=== PATIENT | female | born 1990 | race Two or more races ===

== ENCOUNTER → 2024-03-23 13:35 | Outpatient (BNVA) | payer OTHER, SELFPAY | PROVIDERS: Visit Provider Physician Assistant Medical | DX: Z13.89 Encounter for screening for other disorder (principal) | CPT/HCPCS: 73564; 99202 ==

== ENCOUNTER → 2024-03-26 11:56 | Outpatient (BNVA) | payer OTHER, SELFPAY | PROVIDERS: Visit Provider Physician Assistant Medical | DX: Z13.89 Encounter for screening for other disorder (principal) | CPT/HCPCS: 99213 ==

== ENCOUNTER → 2024-03-30 08:53 | Outpatient (BNVA) | payer OTHER, SELFPAY | PROVIDERS: Visit Provider Physician Assistant Medical | DX: Z13.89 Encounter for screening for other disorder (principal) | CPT/HCPCS: 99213 ==

== ENCOUNTER → 2024-04-06 08:54 | Outpatient (BNVA) | payer OTHER, SELFPAY | PROVIDERS: Visit Provider Physician Assistant Medical | DX: Z13.89 Encounter for screening for other disorder (principal) | CPT/HCPCS: 99213 ==

== ENCOUNTER → 2024-04-20 08:52 | Outpatient (BNVA) | payer OTHER, SELFPAY | PROVIDERS: PCP Internal Medicine; Visit Provider Physician Assistant Medical | DX: Z13.89 Encounter for screening for other disorder (principal) | CPT/HCPCS: 99213 ==

== ENCOUNTER 2024-04-23 07:08 | Outpatient (RCR) | payer OTHER, SELFPAY ==
--- NOTE | 2024-04-13 09:01 | MHC.PT.EP ---
[facility] [place] Office [place] Office [place] Office [address] [phone] F: [phone] F: [phone] F: [phone] F: [phone] Physical Therapy Plan of Care Date of Evaluation: 04/13/24 Date of Surgery: Diagnosis: LEFT KNEE CONTUSION/SPRAIN; LEFT LE PAIN Assessment: 33 YO FEMALE REF TO PT W DX Lt KNEE CONTUSION/ SPRAIN S/P FALL 03/23/24. 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 THE Pt HAS A H/O Lt LE NERVE INJURY AND SCOLIOSIS. OBJECTIVE FINDINGS: DECR INFRA AND LAT Lt PATELLAR MOB, (-) DRAWER Lt; PAIN W PALP Lt TIBIAL TUBEROSITY AND INFRAPATELLAR AREA, RESOLVING Lt INFRAPATELLAR ABRASION, POSTURAL DEVIATIONS W GENU VALGUS AND SCOLIOSIS CREATING A LLI, STRENGTH DEFICITS IN CORE / Lt LE, AND FLUCTUAUTING PAIN IN HER Lt PF/ TIB TUB REGION. SHE HAS DECR DENIZ TO STANDING, ASCENDING STAIRS, KNEELING, AND PROLONGED SITTING. SHE IS A GOOD PT CANDIDATE TO ADDRESS THE ABOVE FINDINGS AND ASSIST HER IN RESUMING REG ADLs. Frequency and Duration: The patient will be seen 2 x WK x 4 WKS Short Term Goals: INITIATE HEP DECR Lt KNEE PAIN TO 2-3/10 Pt PERF WFL FUNCTIONAL SQUAT WFL AROM Lt KNEE/ LE Paraprofessional Interpreter Goals: Pt INDEP W HEP AND SELF SX MGMT TECHN Pt RESUME REG ADLs AND EXERCISE EVIDENT W IMPROVED LEFI (63/80) Pt IMPROVE Lt LE STRENGTH BY 1 GRADE; EFFICIENT CORE ENGAGEMENT W SIMUL ADLs Treatment Plan: Modalities to reduce pain, spasms and effusion. Manual therapy to restore motion and function. Therapeutic exercise to improve strength and flexibility. Neuromuscular re-education for posture and balance. Therapeutic activities to return to functional activities of daily living. Electronically signed by: CANDY SANTOS,PT Please sign and return to therapist. Thank you for your referral.
== END 2024-05-27 11:40 | disposition home or self-care (01) ==
LOC: HO.PT 07:08
PROVIDERS: PCP Internal Medicine; Visit Provider Physician Assistant Medical
DX: M79.605 Pain in left leg (principal)
CPT/HCPCS: 97110; 97140; 97162

== ENCOUNTER → 2024-05-14 15:28 | Outpatient (BNVA) | payer OTHER, SELFPAY | PROVIDERS: PCP Internal Medicine; Visit Provider Physician Assistant Medical | DX: Z13.89 Encounter for screening for other disorder (principal) | CPT/HCPCS: 99213 ==

== ENCOUNTER 2024-05-28 18:12 | Outpatient (REF) | payer OTHER, SELFPAY ==
--- NOTE | ~2024-05-28 | MR_ITS ---
EXAMINATION: MRI LEFT KNEE WITHOUT CONTRAST HISTORY: DERANGEMENT, CONTUSION COMPARISON: Correlation is made with plain films of the left knee dated 03/23/2024. TECHNIQUE: Coronal T1 and fat-suppressed proton density, sagittal proton density and fat-suppressed proton density, and axial fat suppressed T2 weighted MR images of the left knee were obtained. FINDINGS: Bone marrow: Bone marrow signal intensity is normal. Joint effusion: There is no significant joint effusion. Cassidy's cyst: There is no Cassidy's cyst. Articular cartilage: Intact Muscles/soft tissues: There is faint increased signal intensity at the musculotendinous junction of the semimembranosus muscle and surrounding the tendon, compatible with muscle strain versus low-grade partial tear. The popliteus and gastrocnemius tendons are intact. Anterior cruciate ligament: Intact Posterior cruciate ligament: Intact Medial collateral ligament: Intact Lateral collateral ligament: Intact Medial meniscus: Intact Lateral meniscus: Intact Quadriceps tendon: Intact Patellar tendon: Intact Patellar retinacula: Intact MR/MR knee LT wo con IMPRESSION: Findings compatible with strain versus low-grade partial tear of the semimembranosus. Otherwise unremarkable MRI of the left knee. Electronically signed by: Freddy Song MD 05/29/2024 08:45 AM [facility] [place]
--- OUTSIDE RECORDS SUMMARY | 2024-05-28 19:47 | XMS_ITS | Data Portability ---
Author Organization [facility], [address] Address [address] [place] [address] Care Team Providers Care Construction Assistant Name Role Phone [facility] Primary Care Provi marry Assessment No assessment recorded. Plan of Treatment Reminders Order Date Submit Date Provider Last Modified By Organization Details Last Modified Time Details Appointments None recorded. Lab test, urine 2022 023 [email or web address] 247 [address] [address], [address] [place], [address], 3 16:53:55 rapid flu (A+B) 2022 023 [email or web address] 247 [address] [address], [address] [place], [address], 3 16:53:55 rapid SARS CoV 2 Ag, QL IA, respiratory specimen 2022 023 [email or web address] 247 [address] [address], [address] [place], [address], 3 16:53:55 urinalysis, dipstick 2022 023 [email or web address] 247 [address] [address], [address] [place], [address], 3 16:53:55 Referral None recorded. Procedures None recorded. Surgeries None recorded. Imaging None recorded. Medication Orders albuterol sulfate HFA 90 mcg/actuati on aerosol inhaler 2022 023 [facility]acy #[id number], [address] [place], [address], 17:44:04 benzonatate 100 mg capsule 2022 023 [facility] #[id number], [address] [place], [address], 17:44:03 doxylamine 10 mg-pyridoxi ne (vit B6) 10 mg tablet,park yed release 2022 023 [email or web address] [facility]/Pharmacy #[id number], [address] [place] [address], [address], 17:14:33 Patient TargetsNo targets recorded. Patient Instructions Encounter Date Encounter Id Patient Instructions Last Modified By Organization Details Last Modified Time 08/25/2022 [id number] nausea and vomiting: care instructions [email or web address] Not available 08/25/2022 16:53:55 GI Clear Liquids Clear Liquids: Fresh Johnathon Root Tea-Cut up fresh johnathon root and boil it till fragrant. drink the liquid as a tea. Can add Honey to taste. [place] tea Peppermint tea (not with GERD-Reflux) Clear broth soup: Vegetable, Chicken or Beef as tolerated. Start with drinking small amounts of clear liquids frequently. After you are able to tolerate clear liquids without vomiting for 6-12 hours, you may begin to eat small amounts of bland foods, such as bananas, rice, applesauce, toast. These foods make up the BRAT diet. You may also try crackers, dry toast, along with clear fluids. You may advance your diet to include other foods as tolerated. If you begin vomiting again, go back to clear liquids and start the process over again. If you are unable to tolerate clear liquids for more than 4 hours, you should return to [facility] or go to the nearest Emergency Department. Try small amounts of clear liquids frequently. If vomiting occurs, wait 30-60 minutes before trying clear liquids again. Once you are able to tolerate clear liquids for at least 6 hours without vomiting, you can advance to a soft diet consisting of foods such as bananas, rice, applesauce, toast, crackers, and other foods rich in carbohydrates and low on fats and spices. If the diet is tolerated for 12-24 hours, you can slowly add other foods to your diet. If vomiting occurs, you should go back to clear liquids only and work your way back to a normal diet as outlined above. If much worse, you should seek treatment immediately. [id number] Not available 08/25/2022 16:51:04 Follow-up with your OB Doctor within 1 week. Seek Emergency Medical evaluation for any worsening symptoms. [email or web address] Not available 08/25/2022 16:53:41 03/19/2023 [id number] wheezing or bronchoconstrictio n: care instructions [email or web address] Not available 03/19/2023 17:44:16 cough: care instructions [email or web address] Not available 03/19/2023 17:43:59 viral infections : care instructions [email or web address] Not available 03/19/2023 17:43:59 Assessing respiratory illnesses is limited using video/telehealth due to inability to listen to your lungs. If you have any concern that you have pneumonia you will need to be seen in person. Rest. Drink plenty of fluids. Use the inhaler as prescribed for cough, wheezing, shortness of breath. Take the cough medication as prescribed if needed. Nutritional supplements that may benefit you include vitamin D3, vitamin C, zinc, elderberry. See printed instructions. Follow-up with your doctor if no improvement in a few days. Seek Emergency Medical evaluation for any worsening symptoms, particularly for high fever, shaking chills, severe headache, rash, stiff neck, shortness of breath, chest pain, coughing up blood. [email or web address] Not available 03/19/2023 17:48:13 Reason for Referral None Reported. Results Created Date Observation Date Name Description Value Unit Range Abnormal Flag Note LastModifiedBy Organization Detail LastModifiedTime 08/26/19 23 08/25/2022 rapid SARS CoV 2 Ag, QL IA, respi rator y speci men Unknown Analyte Normal =Negat dada Not Available [address] [place], [address], 08/25/2022 15:44:57 08/26/19 23 08/25/2022 rapid SARS CoV 2 Ag, QL IA, respi rator y speci men Unknown Analyte negati ve Not Available [address] [place], [address], 08/25/2022 15:44:57 08/26/19 23 08/25/2022 rapid flu (A+B) Unknown Analyte Normal = Negati ve Not Available [address] [facility] [address] [place], [address], 08/25/2022 15:44:36 08/26/19 23 08/25/2022 rapid flu (A+B) Unknown Analyte negati ve Not Available [facility] [address] [place] [address], [address], 08/25/2022 15:44:36 08/26/19 23 08/25/2022 rapid flu (A+B) Unknown Analyte Normal = Negati ve Not Available [facility] [address] [place] [address], [address], 08/25/2022 15:44:36 08/26/19 23 08/25/2022 rapid flu (A+B) Unknown Analyte negati ve Not Available [address] [place], [address], 08/25/2022 15:44:36 08/26/19 23 08/25/2022 urina lysis , dipst ick Unknown Analyte Normal = light yellow Not Available [address] [place], [address], 08/25/2022 15:56:56 08/26/19 23 08/25/2022 urina lysis , dipst ick Unknown Analyte Yellow Not Available [facility] [address] [place], [address], 08/25/2022 15:56:56 08/26/1908/25/2022 urina lysis , dipst ick Unknown Analyte Normal = clear Not Available [facility] [place], [address], 08/25/2022 15:56:56 08/26/19 23 08/25/2022 urina lysis , dipst ick Unknown Analyte Clear Not Available [address] [place] [address] [address] [place], [address], 08/25/2022 15:56:56 08/26/19 23 08/25/2022 urina lysis , dipst ick Unknown Analyte Normal = negati ve Not Available [facility] [address] [place], [address], 08/25/2022 15:56:56 08/26/19 23 08/25/2022 urina lysis , dipst ick Unknown Analyte Negati ve Not Available [address] [place], [address], 08/25/2022 15:56:56 08/26/1908/25/2022 urina lysis , dipst ick Unknown Analyte Normal = Negati ve Not Available [address] [place], [address], 08/25/2022 15:56:56 08/26/19 23 08/25/2022 urina lysis , dipst ick Unknown Analyte Negati ve Not Available [address] [place], [address], 08/25/2022 15:56:56 08/26/19 23 08/25/2022 urina lysis , dipst ick Unknown Analyte Normal = Negati ve Not Available [address] [place], [address], 08/25/2022 15:56:56 08/26/1908/25/2022 urina lysis , dipst ick Unknown Analyte Negati ve Not Available [address] [place], [address], 08/25/2022 15:56:56 08/26/1908/25/2022 urina lysis , dipst ick Unknown Analyte Normal = 1.010, 1.015, 1.020 Not Available [address] [place], [address], 08/25/2022 15:56:56 08/26/1908/25/2022 urina lysis , dipst ick Unknown Analyte 1.020 Not Available [facility] [address] [place], [address], 08/25/2022 15:56:56 08/26/1908/25/2022 urina lysis , dipst ick Unknown Analyte Normal = Negati ve Not Available [address] [place], [address], 08/25/2022 15:56:56 08/26/1908/25/2022 urina lysis , dipst ick Unknown Analyte Negati ve Not Available [address] [place], [address], 08/25/2022 15:56:56 08/26/1908/25/2022 urina lysis , dipst ick Unknown Analyte Normal = 6.5, 7.0, 7.5, 8.0 Not Available [address] [place], [address], 08/25/2022 15:56:56 08/26/19 23 08/25/2022 urina lysis , dipst ick Unknown Analyte 7.0 Not Available [facility] [address] [place], [address], 08/25/2022 15:56:56 08/26/19 23 08/25/2022 urina lysis , dipst ick Unknown Analyte Normal = Negati ve Not Available [address] [place], [address], 08/25/2022 15:56:56 08/26/1908/25/2022 urina lysis , dipst ick Unknown Analyte Negati ve Not Available [address] [place], [address], 08/25/2022 15:56:56 08/26/19 23 08/25/2022 urina lysis , dipst ick Unknown Analyte Normal = 0.2, 1.0 Not Available [address] [place], [address], 08/25/2022 15:56:56 08/26/19 23 08/25/2022 urina lysis , dipst ick Unknown Analyte 0.2 E.U./d L Not Available [address] [place], [address], 08/25/2022 15:56:56 08/26/19 23 08/25/2022 urina lysis , dipst ick Unknown Analyte Normal = Negati ve Not Available [address] [place], [address], 08/25/2022 15:56:56 08/26/19 23 08/25/2022 urina lysis , dipst ick Unknown Analyte Negati ve Not Available [address] [place], [address], 08/25/2022 15:56:56 08/26/1908/25/2022 urina lysis , dipst ick Unknown Analyte Normal = Negati ve Not Available [address] [place], [address], 08/25/2022 15:56:56 08/26/19 23 08/25/2022 urina lysis , dipst ick Unknown Analyte Negati ve Not Available [address] [place], [address], 08/25/2022 15:56:56 08/26/19 23 08/25/2022 pregn jade test, urine Unknown Analyte Normal = Negati ve Not Available [facility] [address] [place], [address], 08/25/2022 15:44:25 08/26/1908/25/2022 pregn jade test, urine Unknown Analyte positi ve Not Available [facility] [address] [place], [address], 08/25/2022 15:44:25 Result Notes None recorded. Problems Name Problem SNOMED Code Status Onset Date Resolution Date Notes Provider Name and Address Organization Details Recorded Time Disorder of thyroid gland 61118906 Active 023 DAYRON [place]irmingham [place] - [facility] 3 15:39:32 Problem Notes None recorded. Procedures Surgical History Date Name Laterality Status Provider Name and Address Organization Details Recorded Time Virtual Visit completed Maggie Diaz MD [address] [place] [address] [place], [address], [place] - [facility] 03/20/2023 12:07:15 Appendectomy completed DAYRON GARAY [place] - [facility] 08/25/2022 15:39:44 Imaging Results None recorded. Procedure Notes None recorded. Medical Equipment None Reported. Allergies No known drug allergies Medications Name Sig Start Date Stop Date Status Note LastModified by Organization Details LastModified Time amoxicillin 500 mg capsule TAKE 1 CAPSULE BY MOUTH EVERY 8 HOURS UNTIL FINISHED 03/19 completed Not Available Not Available Not Available Apri 0.15 mg-0.03 mg tablet TAKE 1 TABLET BY MOUTH DAILY AT SAME TIME DAILY 03/19 completed Not Available Not Available Not Available phentermine 15 mg capsule TAKE 1 CAPSULE BY MOUTH EVERY DAY FOR 30 DAYS 03/19 completed Not Available Not Available Not Available benzonatate 100 mg capsule Take 1 capsule 3 times a day by oral route as needed. 2022 active Not Available Not Available Not Avai lable levothyroxi ne 50 mcg tablet TAKE 1 TABLET BY MOUTH EVERY DAY AND 1 ADDITIONA L TABLET WEEKLY active Not Available Not Available No t Available albuterol sulfate HFA 90 mcg/actuati on aerosol inhaler Inhale 2 puffs every 4 hours by inhalatio n route as needed. 2022 active Not Available Not Available Not Avai lable levothyroxi ne 03/19 completed Not Available Not Available Not Available doxylamine 10 mg-pyridoxi ne (vit B6) 10 mg tablet,park yed release Take by oral route for 7 days. 03/19 completed Not Available Not Available Not Available Vitals Date Recorded Body height Body mass index (BMI) Body weight Pain severity - 0-10 verbal numeric rating [Score] - Reported Body temperature Respiratory rate Heart rate Oxygen saturation Oxygen saturation in Arterial blood by Pulse oximetry Systolic blood pressure Diastolic blood pressure Provider Name and Address Organization Details Last Updated DateTime 3 167.64 cm 35.5 kg/m2 80637.3 2 g 0 97.8 [degF] 18 /min 99 /min 99 % 99 % 130 mm[Hg] 80 mm[Hg] DAYRON GARAY [place] - [facility] 3 15:44:18 Date Recorded Body height Body mass index (BMI) Body weight Provider Name and Address Organization Details Last Updated DateTime 03/19/2023 167.64 cm 35.5 kg/m2 27075.32 g Mónica Hendrix [place] - [facility] 03/19/2023 17:14:06 Social History Question Answer Notes LastModified by Organizat ion Details LastModified Time Tobacco Smoking Status Never Smoker [facility] 08/25/2022 15:40:27 Do You Use Any Illicit Or Recreational Drugs? No Information not available 08/25/2022 Have You Recently Traveled Abroad? No Information not available 08/25/2022 Do You Or Have You Ever Used Any Other Forms Of Tobacco Or Nicotine? No Information not available 08/25/2022 Sex: Unknown Functional Status None recorded. Mental Status None recorded. Family History Relationship Description Onset Age of this Age Resolved Age Notes LastModified by Organization Details LastModified Time Father No current problems or disability [email or web address] Not available 07/31 15:39:51 Mother No current problems or disability [email or web address] Not available 07/31 15:39:51 Medical History No medical history recorded. Gynecological History Statement/Question Response Date of LMP 03/11/2023 Is there any chance of ? No LMP Definite Obstetrics History GPAL:G 0 P 0 0 0 0 Immunizations Vaccine Type Date Status Note Provider Nam e and Address Organization Details Recorded Time Influenza, MDCK, quadrivalent, PF 11/27/2021 completed DAYRON [place] - [facility] 08/25/2022 15:40:00 Tdap 12/06/2021 completed DAYRON [place] - [facility] 08/25/2022 15:40:00 Past Encounters Encounter ID Performer Location Encounter Start Date Encounter Closed Date Diagnosis/Indication Diagnosis SNOMED-CT Code Diagnosis ICD10 Code Diagnosis Note [id number] [address] [place] [address] 12/06/2021 09:02:56 12/06/2021 10:22:07 [id number] [address] [place] [address] 11/20/2021 08:49:48 11/20/2021 10:12:13 [id number] HUYEN COOK MD [address] [facility] JULIO CÉSAR [place] [address] 08/25/2022 15:18:12 08/25/2022 16:55:31 Morning sickness 70869967 O21.9 Follow-up with your OB Doctor within 1 week.Seek Emergency Medical evaluation for any worsening symptoms. [id number] [place] [address] [facility] JULIO CÉSAR [place] [address] 03/19/2023 16:55:18 03/19/2023 17:52:18 Viral syndrome 638436554 B34.9 Acute bronchospasm 66305 24753 9100 J98.01 Health Concerns Section Related Observation LastModified by Organization Detai ls LastModified Time None Recorded Concern Status LastModified by Organization Details LastModified Time None Recorded Advance Directives Directive None Recorded Payers Encounter Date Sequence Insurance Name Policy Number Policy [employer] Covered Member ID [employer] Member ID Guarantor Name 08/25/2022 1 [facility] - [facility] (MEDICAID REPLACEMENT - HMO) VERNELL Zarate [id number] Risa Zarate 03/19/2023 1 [employer] (EPO) [id number] Risa Zarate [id number] Risa Zarate Notes Date Note Type Note Provider Name and Address Organization Details Recorded Time 3 text/html Nausea UCReported bypatient.source of patient informationpatient Locationdiffuse Quality:worsening; intermittent Severity:moderate Durationpresent for 1-2 weeks; Worsened over the last 2 days. She had similar symptoms with he 1st . Onset/Timing:worse in the morning Contextno one else with similar symptoms; no possible food sources; no well water; no foreign travel Alleviating factors:nothing helps Aggravating factors:eating Associated Symptoms:no abdominal pain; no excess gas; no fever; no diarrhea;vomiting;fatigue vomiting x's 2 weeks, past 2 days worse, body aches. menses is late - 2 weeks HUYEN COOK MD [address] [facility] [place], [address], [place] - [facility] 08/25/2022 17:09:44 3 text/html CoughReported bypatient.source of patient informationInformation obtained from patient; Telehealth visit. Severity:moderate Duration:constant; 2 days Timing:gradual Context:non-smoker; History of bronchitis with wheezing in the past. No formal diagnosis of asthma. Modifying Factors:None. Associated Symptoms:no chest pain; no heartburn; no nausea; no vomiting; no edema; no agitation;fever;chills;whee zing;post nasal dripNotes:32 year old female presenting for telehealth visit for evaluation of nasal congestion, runny nose, dry cough, intermittent wheezing, irritated throat, fever, chills and slight diarrhea for the past 2 days. She has had bronchitis with wheezing in the past but no formal diagnosis of asthma. No headache, rash, stiff neck, chest pain, shortness of breath. No nausea, vomiting or abdominal pain. No body aches. Maggie Diaz MD [address] [facility] [place], [address], [place] - [facility] 03/20/2023 12:10:29 OBGyn Episode No OBEpisode recorded.
--- OUTSIDE RECORDS SUMMARY | 2024-05-28 19:47 | XMS_ITS | Encounter Summary ---
Author Organization [employer] Address [address] [place] [address] Care Team Providers Care Corncob Pipes Assembler Name Role Phone Negro Fraire MD Primary Care Provider [phone] Reason for Visit * Reason Comments Follow-up Er f/u gi issues Encounter Details Date Type Department Care Team (Late st Contact Info) Description 05/22/2024 12:00 PM EST Office Visit Internal Medicine - [address] [phone] Nathan Sawyer NP [address] [place] [address] Abdominal pain, unspecified abdominal location (Primary Dx) Social History Tobacco Use Types Packs/Day Years Used Date Smoking Tobacco: Never Smokeless Tobacco: Never Tobacco Cessation:Counseling Given: Not Answered Alcohol Use Standard Drinks/Week Comments Yes 0 (1 standard drink = 0.6 oz pur e alcohol) Housing Instability Answer Date Recorde d Are you worried that in the next 2 months you may not have stable housing? No 03/11/2024 Food Access & Nutrition Answer Date Rec orded Do you have access to a vari ety of food including fruits and vegetables? Yes 03/11/2024 Health Literacy Answer Date Recorded How often do you need to hav e someone help you when you read instructions, pamphlets, or other written material from your doctor or pharmacy? Never 03/11/2024 Caregiver: How often do you need to have someone help you when you read instructions, pamphlets, or other written material from your doctor or pharmacy? Not on file 03/11/2024 Financial Risk Answer Date Recorded How hard is it for you to pa y for the very basics like food, housing, medical care, and air conditioning / heating? Not very hard 03/11/2024 Transportation Answer Date Recorded Has the lack of transportati on kept you from meetings, work, or from getting things needed for daily living? No Has the lack of transportati on kept you from medical appointments or from getting medications? No 03/11/2024 Social Isolation Answer Date Recorded How often do you feel lonely or isolated from th ose around you? Never 03/11/2024 Food Risk Answer Date Recorded Within the past 12 months we worried whether our food would run out before we got money to buy more. Never true 03/11/2024 Within the past 12 months th e food we bought just didn't last and we didn't have money to get more. Never true 03/11/2024 Dependent Care Answer Date Recorded Do you need help finding or paying for care for your loved ones. For example, child welfare assistant or elderly care for an older adult? No 03/11/2024 Education Answer Date Recorded Do you think completing more education or training, like finishing a GED, going to college, or learning a trade, would be helpful for you? No 03/11/2024 Employment and Income Answer Date Recor ded During the last four weeks, have you been actively looking for work? No 03/11/2024 Living Situation Answer Date Recorded What is your living situation? 1 05/12/2023 Comments Unknown Sex and Gender Information Value Date Recorded Sex Assigned at Female 03/14/2024 7:24 PM EST Legal Sex Female 4:51 AM EST Gender Identity Female 03/14/2024 7:24 PM EST Sexual Orientation Straight 03/02/2024 9: 19 AM EST documented as of this encounter Last Filed Vital Signs Vital Sign Reading Time Taken Comments Blood Pressure 121/90 05/22/2024 12:07 PM EST Pulse 108 05/22/2024 12:07 PM EST Temperature - - Respiratory Rate - - Oxygen Saturation - - Inhaled Oxygen Concentration - - Weight 109 kg (240 lb) 05/22/2024 12:07 PM EST Height 165.1 cm (5' 5 ) 05/22/2024 12:07 PM EST Body Mass Index 39.94 05/22/2024 12:07 PM EST documented in this encounter Functional Status * Are you deaf or do you have serious difficulty hearing? Answer Date of Assessment Author No 03/14/2024 6:25 PM Luz Merritt RN * Are you blind or do you have serious difficulty seeing, even when wearing glasses? Answer Date of Assessment Author No 03/14/2024 6:25 PM Luz Merritt RN * Do you have serious difficulty walking or climbing stairs? Answer Date of Assessment Author No 03/14/2024 6:25 PM Luz Merritt RN * Do you have serious difficulty dressing or bathing? Answer Date of Assessment Author No 03/14/2024 6:25 PM Luz Merritt RN * Because of a physical, mental, or emotional condition, do you have serious difficulty doing errandsalone such as visiting the doctor? Answer Date of Assessment Author No 03/14/2024 6:25 PM Luz Merritt RN documented as of this encounter Mental Status * Because of a physical, mental, or emotional condition, do you have serious difficulty concentrating, remembering, or making decisions? (5 years old or older) Answer Entry Date Author No 03/14/2024 6:25 PM Luz Merritt RN documented in this encounter Progress Notes * Nathan Sawyer NP - 05/22/2024 12:00 PM EST CHIEF COMPLAINT: Follow-up (Er f/u gi issues /) had concerns including Follow-up (Er f/u gi issues /). IDENTIFIER: Risa Zarate is a 33 y.o. old female HPI: Risa Zarate is a 33 y.o. old female presents to the office for evaluation of Follow-up (Er f/ugi issues /) had concerns including Follow-up (Er f/u gi issues /). Reports GI symptoms including right upper quadrant pain, nausea, diarrhea for which started on Saturday, was not able to go to work on Saturday, pain continue until she presented to an urgent care yesterday where she was advised to go to emergency room to rule out liver pathology, she did ultrasound which did not show any abnormal finding, was diagnosed with gastritis and advised to take medication, generally feels improvement but not completely, her diarrhea has completely improved and now she is constipated, still has some nausea but it is better. She denies any respiratory, urogenital symptom. ROS: See HPI PAST MEDICAL HISTORY: Patient Active Problem List Diagnosis Date Noted Vitamin D deficiency 04/12/2023 Hypothyroidism 05/20/2018 Abnormal Pap smear of cervix 02/11/2018 Chronic upper back pain 02/11/2018 Scoliosis 02/11/2018 Mixed anxiety and depressive disorder 02/11/2018 ACTIVE MEDICATIONS: Outpatient Medications Marked as Taking for the 05/22/24 encounter (Office Visit) with Nathan Sawyer NP Medication Sig Dispense Refill famotidine (PEPCID) 20 mg tablet Take 1 tablet (20 mg total) by mouth 2 (two) times a day for 15 days. 30 tablet 0 levothyroxine (SYNTHROID, LEVOTHROID) 50 mcg tablet Take 1 tablet (50 mcg total) by mouth 1 (one) time each day. 90 each 1 ALLERGIES: @ALL@ PHYSICAL EXAM: Visit Vitals BP (!) 121/90 Pulse 108 Ht 1.651 m (65 ) Wt 109 kg (240 lb) LMP 05/21/2024 BMI 39.94 kg/m?? OB Status Unknown Smoking Status Never BSA 2.14 m?? APPEARANCE: Alert and in no acute distress HEART: RRR with normal S1 and S2, no murmurs, no gallops, no JVD appreciated LUNG: clear to auscultation EXTREMITIES: Extremities warm and well perfused without clubbing, cyanosis, or edema LABS: @LASTDATALABS@ IMPRESSION: 1. Abdominal pain, unspecified abdominal location PLAN: I evaluated this patient today for findings on history and physical exam are consistent with gastroenteritis possible viral cause, symptoms are improving, she has had related urgent and ER visit where ultrasound was normal, labs unremarkable, I advised patient to continue Pepcid for 2 weeks then stop. Keep well-hydrated. Provided her with requested out of work letter. She is to back to the officeif symptoms continue for another week or earlier at any point if get worse. Otherwise she will continue routine follow-up with her PCP. No orders of the defined types were placed in this encounter. ADDITIONAL ORDERS: None Today's documentation was made using voice recognition software.This note may contain grammatical errors secondary to this software. Nathan Sawyer NP on 05/22/2024 at 1:15 PM EST documented in this encounter Plan of Treatment Upcoming Encounters Date Type Department Care Team (Late st Contact Info) Description 06/22/2024 4:00 PM EDT Office Visit Internal Medicine - [address] [phone] Negro Fraire MD [address] [place] [phone] documented as of this encounter Visit Diagnoses Diagnosis Abdominal pain, unspecified abdominal location- Primary documented in this encounter Additional Health Concerns Assessment Noted Time PHQ-9 Depression Total Score: 6 03/11/20 24 4:17 PM EST documented as of this encounter Care Teams Corncob Pipes Assembler Relationship Specialty Start Date End Date Negro Fraire MD [address] [place] [id number] PCP - General Internal Medicine 01/24/24 documented as of this encounter
--- OUTSIDE RECORDS SUMMARY | 2024-05-28 19:47 | XMS_ITS | Encounter Summary ---
Author Organization [employer] Address [address] [place] [address] Care Team Providers Care Director Of Property Management Name Role Phone Negro Fraire MD Primary Care Provider [phone] Reason for Visit * Reason Onset Date Comments provider call back 05/22/2024 Encounter Details Date Type Department Care Team (Late st Contact Info) Description 05/22/2024 Telephone Internal Medicine - [facility] [address] [place] [phone] Negro Fraire MD [address] [place] [phone] provider call back Social History Tobacco Use Types Packs/Day Years Used Date Smoking Tobacco: Never Smokeless Tobacco: Never Alcohol Use Standard Drinks/Week Comments Yes 0 [...] care for your loved ones. For example, exceptional children's teacher or elderly care for an older adult? [...] AM EST documented as of this encounter Functional Status * Are you [...] documented in this encounter Progress Notes * Kelly Jolly RN - 05/22/2024 10:22 AM EST Spoke with pt appt scheduled * Fauzia Rush - 05/22/2024 10:12 AM EST Pt called today to schedule an er f/u from [facility], there were not appts available until theend may. She requested to have a call back from a nurse to discuss an earlier appt. Per pt. Thank you documented in this encounter Plan of Treatment Upcoming Encounters Date Type Department Care Team (Late st Contact Info) Description 06/22/2024 4:00 PM EDT Office Visit Internal Medicine - [address] [phone] eNgro Fraire MD [address] [place] [id number] documented as of this encounter Visit Diagnoses Not on filedocumented in this encounter Additional Health Concerns Assessment Noted Time PHQ-9 Depression Total Score: 6 03/11/20 4:17 PM EST documented as of this encounter Care Teams Director Of Property Management Relationship Specialty Start Date End Date Negro Fraire MD [address] [place] [address] PCP - General Internal Medicine 01/24/24 documented as of this encounter
--- OUTSIDE RECORDS SUMMARY | 2024-05-28 19:47 | XMS_ITS | Clinical Summary ---
Author Organization [facility] [address] [facility] Building Address [address] [place] [phone] Phone Care Team Providers Care Detail Drafter Name Role Phone Negro Fraire MD Primary Care Provider [phone] Allergies No known active allergies Medications cholecalciferol (VITAMIN D-3) 125 mcg (5,000 unit) capsule Take 1 Tablet by mouth daily. Active FLUoxetine (PROzac) 40 mg capsule Take 1 Capsule by mouth daily. Active hydrOXYzine HCL (ATARAX) 25 mg tablet Take 1 Tablet by mouth 3 times daily as needed for Itching for up to 360 days. Active semaglutide (Wegovy) 0.25 mg/0.5 mL injection penIndications: Morbid obesity (CMS/HCC) Inject 0.25 mg under the skin every 7 (seven) days. 2 mL 02/04/2024 Active levothyroxine (SYNTHROID, LEVOTHROID) 50 mcg tablet Take 1 tablet (50 mcg total) by mouth 1 (one) time each day. 90 each 1 04/14/2024 Active famotidine (PEPCID) 20 mg tablet Take 1 tablet (20 mg total) by mouth 2 (two) times a day for 15 days. 30 tablet 05/21/2024 Active Active Problems Problem Noted Date Diagnosed Date Vitamin D deficiency 04/12/2023 Hypothyroidism 05/20/2018 Abnormal Pap smear of cervix 02/11/2018 Chronic upper back pain 02/11/2018 Overview (01/20/2024): Large breasts Scoliosis 02/11/2018 Overview (01/20/2024): Bracing as child Mixed anxiety and depressive disorder 02/11/2018 Encounters Date Type Department Care Team Description 05/22/2024 12:00 PM EST Office Visit Internal Medicine - [address] [phone] Nathan Sawyer NP Abdominal pain, unspecified abdominal location (Primary Dx) 05/22/2024 Telephone Internal Medicine - [address] [phone] Negro Fraire MD provider call back 05/21/2024 2:25 PM EST - 05/21/2024 8:11 PM [facility] Emergency [address] [place] [phone] Epigastric pain (Primary Dx) Discharge Disposition: Home or Self Care 03/14/2024 6:12 PM EST - 03/14/2024 8:[address] [facility] Emergency [address] [place] [phone] Unruly Wise MD Hypothyroidism, unspecified type (Primary Dx); Low magnesium level Discharge Disposition: Home or Self Care 03/12/2024 8:00 AM EST Office Visit Internal Medicine - [address] [phone] Negro Fraire MD Acne vulgaris (Primary Dx); Hypothyroidism, unspecified type; Class 2 obesity due to excess calories without serious comorbidity with body mass index (BMI) of 39.0 to 39.9 in adult 03/12/2024 Telephone Internal Medicine - [address] [phone] Negro Fraire MD Med Change Request 03/11/2024 Telephone Bariatric Surgery - [facility] [address] [place] [phone] Karla Plasencia PA Prior auth (Prior auth) from Last 3 Months Immunizations Name Administration Dates Next Due DTaP (Infanrix) 6wks to less than 7yo ,12/11/1993,1992,1992,03/01/1992 [id number] (Pentacel) 2mo to less than 5yo 12/21/1995,05/02/1993,06/21/1992,1991 HPV, Quadrivalent 08/27/2008,11/27/2007,03/27/20 06 Hepatitis B (Mfhzqoa-B-Doszt , Recombivax HB-Adult) 19yo and older 04/14/2018 Hepatitis B Pediatric (Enger ix B; Recombivax HB) to less than 20 yo 06/21/1992,03/01/1992,1991 Influenza Quadravalent, MDCK , 0.5ml, preservative free (Flucelvax) 6mo and older 02/11/2018 Influenza trivalent, MDCK, 0 .5mL, preservative free (Flucelvax) 6mo and older 02/12/2024 MMR, measles mumps and rubel la Live (Priorix; M-M-R II) 12mo and older 01/26/1997,05/02/1993 OPV 01/26/1997, 4,06/21/1992,1991 Td Tetanus diptheria (Tdvax) 7yo and older 12/12/2004 Tdap Tetanus diptheria acell ular pertussis (Boostrix; Adacel) 7yo and older 02/11/2018,04/15/2014,12/23/2008 Varicella live (Varivax) 12m o and older 04/14/2018,01/26/1997 Surgical History Surgery Date Site/Laterality Comments CERVICAL BIOPSY W/ LOOP ELECTRODE EXCISION 01/2017 PROCEDURE: MT CONIZATION CERVIX W/WO D&C RPR ELTRD EXC; COMMENT: Sandy Womenhuyen APPENDECTOMY 2003 PROCEDURE: HISTORICAL APPENDECTOMY Medical History Medical History Date Comments Abnormal Pap smear of cervix 02/11/2018 DX: Abnormal Pap smear of cervix Scoliosis 02/11/2018 DX:Scoliosis; CO MMENT: Bracing as child Chronic upper back pain 02/11/2018 DX:Chron ic upper back pain; COMMENT: Large breasts Hypothyroidism 05/20/2018 DX:Hypothyroidis m Mixed anxiety and depressive disorder 02/11/2018 DX:Mixed anxiety and depressive disorder Family History Medical History Relation Name Comments Diabetes Brother 1 Riesner No Known Problems Brother 2 No Known Problems Brother 3 No Known Problems Brother 4 No Known Problems Brother 5 No Known Problems Daughter Thyroid disease Father Dementia Maternal Grandfather Hypertension Maternal Grandmother Hypertension Mother No Known Problems Paternal Grandfather No Known Problems Paternal Grandmother No Known Problems Son Relation Name Status Comments Brother 1 Riesner Alive Brother 2 Alive Brother 3 Alive Brother 4 Alive Brother 5 Alive Daughter Alive Father Alive Maternal Grandfather Alive Maternal Grandmother Alive Mother Alive Paternal Grandfather Paternal Grandmother Son Alive Social History Tobacco Use Types Packs/Day Years [...] care for your loved ones. For example, childhood development teacher or elderly care for an older [...] Orientation Straight 03/02/2024 9: 19 AM EST Obstetrics History Last Filed Vital Signs Vital Sign Reading Time Taken Comments Blood Pressure 121/90 05/22/2024 12:07 PM EST Pulse 108 05/22/2024 12:07 PM EST Temperature 36.7 ??C (98.1 ??F) 05/21/2024 8:10 PM ES T Respiratory Rate 18 05/21/2024 8:10 PM EST Oxygen Saturation 100% 05/21/2024 8:10 PM EST Inhaled Oxygen Concentration - - Weight 109 kg (240 lb) 05/22/2024 12:07 PM EST Height 165.1 cm (5' 5 ) 05/22/2024 12:07 PM EST Body Mass Index 39.94 05/22/2024 12:07 PM EST Plan of Treatment Upcoming Encounters Date Type Department Care Team (Late st Contact Info) Description 06/22/2024 4:00 PM EDT Office Visit Internal Medicine - [address] [phone] Negro Fraire MD [address] [place] [phone] Health Maintenance Due Date Last Done Comments Cervical Cancer Screening: Pap Smear 12/19/2012 HIV Screening 03/10/2022 Hepatitis C Screening 03/10/2022 COVID-19 Vaccine ( season) 2023 12/27/2020, 11/08/2020 Depression Screening 03/11/2025 03/11/2024, 10/02/19 Social Influencers of Health Screening 03/11/2025 03/11/2024 Cholesterol Screening (Lipid Panel) 04/12/2028 04/12/2023 DTaP,Tdap,and Td Vaccines (12 - Td or Tdap) 12/07/2031 12/06/2021, 02/11/2018, 03/23/2016, Additional history exists HIB Vaccines Completed 12/21/1995, 04/1993, 05/02/1993, Additional history exists IPV Vaccines Completed 01/26/1997, 12/01, 12/11/1993, Additional history exists MMR Vaccines Completed 01/26/1997, 05/02/1993 HPV Vaccines Completed 08/27/2008, 10/31, 08/28/2007, Additional history exists Hepatitis B Vaccines Completed 04/14/2018, 06/21/1992, 03/01/1992, Additional history exists Varicella Vaccines Aged Out 04/14/2018, 01/26/1997 No longer eligible based on patient's age to complete this topic Influenza Vaccine Completed 02/12/2024, , 02/11/2018, Additional history exists Hepatitis A Vaccines Aged Out No long er eligible based on patient's age to complete this topic Meningococcal ACWY Vaccine Aged Out N o longer eligible based on patient's age to complete this topic Meningococcal B Vacine Aged Out No lo nger eligible based on patient's age to complete this topic Pneumococcal Vaccine: Pediatrics (0 to 5 Years) and At-Risk Patients (6 to 64 Years) Aged Out No longer eligible based on patient's age to complete this topic RSV Immunization Patients Under 20 months Aged Out No longer eligible based on patient's age to complete this topic Procedures Procedure Name Priority Date/Time Associated Diagnosis Comments US ABDOMEN LIMITED STAT 05/21/2024 4: 44 PM EST TIGER TOP URINE TUBE Routine 05/21/2024 10:24 AM EST PATINO URINE CULTURE TUBE Routine 05/21/19 10:24 AM EST EXTRA TUBES Routine 05/21/2024 10:24 AM EST CBC WITH AUTO DIFFERENTIAL STAT 05/21/2024 10:24 AM EST LIPASE STAT 05/21/2024 10:24 AM EST COMPREHENSIVE METABOLIC PANEL STAT 05/21/2024 10:24 AM EST CBC AND DIFFERENTIAL STAT 05/21/2024 10:24 AM EST POC , URINE DIAGNOSTIC STAT 03/14/2024 7:59 PM EST CBC WITH AUTO DIFFERENTIAL STAT 03/14/2024 6:21 PM EST MAGNESIUM STAT 03/14/2024 6:21 PM EST LIPASE STAT 03/14/2024 6:21 PM EST COMPREHENSIVE METABOLIC PANEL STAT 03/14/2024 6:21 PM EST CBC AND DIFFERENTIAL STAT 03/14/2024 6:21 PM EST TROPONIN I HIGH SENSITIVITY STAT 03/14/2024 6:21 PM EST ECG 12-LEAD STAT 03/14/2024 6:04 PM EST ECG ANNOTATED 03/14/2024 TRIIODOTHYRONINE FREE Routine 03/12/2024 9:00 AM EST Hypothyroidism, unspecified type FREE THYROXINE WITH REFLEX TO FREE TRIIODOTHYRONINE Routine 03/12/2024 9:00 AM EST Hypothyroidism, unspecified type THYROID STIMULATING HORMONE WITH REFLEX TO FREE T4 AND FREE T3 Routine 03/12/2024 9:00 AM EST Hypothyroidism, unspecified type HM DEPRESSION SCREENING Routine 10/02/2023 LIPID PANEL Routine 04/12/2023 from Last 3 Months or Most Recently Relevant to Health Maintenance Results * US Abdomen Limited (05/21/2024 4:44 PM EST) Anatomical Region Laterality Modality Body Ultrasound 05/21/2024 4:55 PM EST Impressions 05/21/2024 4:56 PM EST NEGATIVE RIGHT UPPER QUADRANT ULTRASOUND. -------- FINAL REPORT -------- Dictated By: Manuel Samuels Dictated Date: 05/21/2024 16:55 ET Assigned Physician: Manuel Samuels Reviewed and Electronically Signed By: Manuel Samuels Signed Date: 05/21/2024 16:56 ET Workstation ID: [id number] Transcribed By: Self Edit Transcribed Date: 05/21/2024 16:55 ET Narrative 05/21/2024 4:56 PM EST Exam: US ABDOMEN LIMITED Date of Study: 05/21/2024 4:18 PM CLINICAL INFORMATION: Eval for gallbladder disease TECHNIQUE: Real-time ultrasound scanning of the region of interest performed by the glass processing worker. Custodial Worker static images and video clips are submitted for review. FINDINGS: The IVC is unremarkable. ??The pancreas is obscured. ??The liver measures 16.1 cm and is slightly echogenic suggesting fatty infiltration. ??There is normal direction of flow within the portal vein. ??The gallbladder is contracted without gallstones evident. ??No significant wall thickening. ??Common bile duct measures 3 mm. ??Absent sonographic Mera's sign. ??The right kidney measures 11.2 cm without evidence for hydronephrosis. ??No visible ascites. Procedure Note Manuel Samuels MD - 05/21/2024 Exam: US ABDOMEN LIMITED Date of Study: 05/21/2024 4:18 PM CLINICAL INFORMATION: Eval for gallbladder disease TECHNIQUE: Real-time ultrasound scanning of the region of interestperformed by the glass processing worker. Custodial Worker static images and video clipsare submitted for review. FINDINGS: The IVC is unremarkable. The pancreas is obscured. The liver esynaoql07.1 cm and is slightly echogenic suggesting fatty infiltration. There isnormal direction of flow within the portal vein. The gallbladder iscontracted without gallstones evident. No significant wall thickening.Common bile duct measures 3 mm. Absent sonographic Mera's sign. Theright kidney measures 11.2 cm without evidence for hydronephrosis. Novisible ascites. IMPRESSION: NEGATIVE RIGHT UPPER QUADRANT ULTRASOUND. -------- FINAL REPORT -------- Dictated By: Manuel Samuels Dictated Date: 05/21/2024 16:55 ET Assigned Physician: Manuel Samuels Reviewed and Electronically Signed By: Manuel Samuels Signed Date: 05/21/2024 16:56 ET Workstation ID: [id number] Transcribed By: Self Edit Transcribed Date: 05/21/2024 16:55 ET us Michael ARDON IMG US PROCEDURES Final Resul t * Pat[place] urine culture tube (05/21/2024 10:24 AM EST) Extra Tube Hold for add-ons. 05/21/2024 3:01 PM EST [facility] Comment:Auto resulted. Urine Urine specimen obtained by clean catch procedure / Unknown 05/21/2024 10:24 AM EST 05/21/2024 1:54 PM EST us Negro Fraire MD LAB URINE ORDERABLES Final Res ult [facility] [address] [place] [address], [place] [phone] * [place] top urine tube (05/21/2024 10:24 AM EST) Extra Tube Hold for add-ons. 05/21/2024 3:01 PM EST [facility] Comment:Auto resulted. Urine Urine specimen obtained by clean catch procedure / Unknown 05/21/2024 10:24 AM EST 05/21/2024 1:54 PM EST us Negro Fraire MD LAB URINE ORDERABLES Final Res ult [facility] [address] [place] [address], [place] [phone] * (ABNORMAL) CBC auto differential (05/21/2024 10:24 AM EST) Only the most recent of2 resultswithin the time period is included. WBC 8.6 4.8 - 10.8 K/mcL LAB HEMETOLOGY METHOD 05/21/2024 10:55 AM [facility] RBC 4.80 3.80 - 4.80 M/mcL LAB HEMETOLOGY METHOD 05/21/2024 10:55 AM [facility] Hemoglobin 12.2 11.5 - 16.0 g/dL LAB HEMETOLOGY METHOD 05/21/2024 10:55 AM [facility] Hematocrit 39.5 35.0 - 47.0 % LAB HEMETOLOGY METHOD 05/21/2024 10:55 AM [facility] MCV 83.2 79.0 - 98.0 FL LAB HEMETOLOGY METHOD 05/21/2024 10:55 AM [facility] MCH 25.7(L) 27.0 - 32.0 pcg LAB HEMETOLOGY METHOD 05/21/2024 10:55 AM [facility] MCHC 30.9(L) 32.0 - 37.0 g/dL LAB HEMETOLOGY METHOD 05/21/2024 10:55 AM [facility] RDW 14.8 11.0 - 15.0 % LAB HEMETOLOGY METHOD 05/21/2024 10:55 AM [facility] Platelets 380 130 - 400 K/mcL LAB HEMETOLOGY METHOD 05/21/2024 10:55 AM [facility] MPV 9.3 7.0 - 11.0 FL LAB HEMETOLOGY METHOD 05/21/2024 10:55 AM [facility] NRBC 0.0 <1.0 % LAB HEMETOLOGY METHOD 05/21/2024 10:55 AM [facility] NRBC Absolute 0.00 <0.10 K/mcL LAB HEMETOLOGY METHOD 05/21/2024 10:55 AM [facility] Neutrophils Relative 74.1 % LAB HEMETOLOGY METHOD 05/21/2024 10:55 AM [facility] Lymphocytes Relative 17.1 % LAB HEMETOLOGY METHOD 05/21/2024 10:55 AM [facility] Monocytes Relative 5.6 % LAB HEMETOLOGY METHOD 05/21/2024 10:55 AM [facility] Eosinophils Relative 2.2 % LAB HEMETOLOGY METHOD 05/21/2024 10:55 AM [facility] Basophils Relative 0.5 % LAB HEMETOLOGY METHOD 05/21/2024 10:55 AM [facility] Immature Granulocytes Relative 0.5 % LAB HEMETOLOGY METHOD 05/21/2024 10:55 AM [facility] Neutrophils Absolute 6.40 1.50 - 7.00 K/mcL LAB HEMETOLOGY METHOD 05/21/2024 10:55 AM [facility] Lymphocytes Absolute 1.48 1.00 - 5.00 K/mcL LAB HEMETOLOGY METHOD 05/21/2024 10:55 AM [facility] Monocytes Absolute 0.48 0.20 - 1.00 K/mcL LAB HEMETOLOGY METHOD 05/21/2024 10:55 AM [facility] Eosinophils Absolute 0.19 0.00 - 0.50 K/mcL LAB HEMETOLOGY METHOD 05/21/2024 10:55 AM EST [facility] Basophils Absolute 0.04 0.00 - 0.20 K/[facility] LAB HEMETOLOGY METHOD 05/21/2024 10:55 AM EST [facility] Immature Granulocytes Absolute 0.04(H) 0.00 - 0.03 K/[facility] LAB HEMETOLOGY METHOD 05/21/2024 10:55 AM EST [facility] Blood Venous blood specimen / Unknown Venipuncture / Unknown 05/21/2024 10:24 AM EST 05/21/2024 10:45 AM EST Fannie ARDON LAB BLOOD ORDERABLES Final Re sult Performing Organization Address City/[facility]/ZIP Co de Phone Number [facility] [address] [place] [address], [place] [phone] * Lipase (05/21/2024 10:24 AM EST) Only the most recent of2 resultswithin the time period is included. Lipase 45 13 - 75 unit/L LAB CHEMISTRY METHOD 05/21/2024 11:20 AM EST [facility] Blood Venous blood specimen / Unknown Venipuncture / Unknown 05/21/2024 10:24 AM EST 05/21/2024 10:45 AM EST us Fannie ARDON LAB BLOOD ORDERABLES Final Re sult [facility] [address] [place] [address], [place] [phone] * (ABNORMAL) Comprehensive metabolic panel (05/21/2024 10:24 AM EST) Only the most recent of2 resultswithin the time period is included. Sodium 139 133 - 145 mmol/L LAB CHEMISTRY METHOD 05/21/2024 11:20 AM EST [facility] Potassium 3.8 3.5 - 5.5 mmol/L LAB CHEMISTRY METHOD 05/21/2024 11:20 AM [facility] Chloride 106 96 - 110 mmol/L LAB CHEMISTRY METHOD 05/21/2024 11:20 AM [facility] CO2 25 21 - 32 mmol/L LAB CHEMISTRY METHOD 05/21/2024 11:20 AM [facility] Anion Gap 8 3 - 11 LAB CHEMISTRY METHOD 05/21/2024 11:20 AM [facility] Glucose 102(H) 70 - 100 mg/dL LAB CHEMISTRY METHOD 05/21/2024 11:20 AM [facility] BUN 7 5 - 25 mg/dL LAB CHEMISTRY METHOD 05/21/2024 11:20 AM [facility] Creatinine 0.75 0.50 - 1.10 mg/dL LAB CHEMISTRY METHOD 05/21/2024 11:20 AM [facility] eGFR 109 >=60 mL/min/1. 73m2 LAB CHEMISTRY METHOD 05/21/2024 11:20 AM [facility] Comment:Calculation based on the??Chronic Kidney Disease Epidemiology Collaboration (CKD-EPI) equation refit??without adjustment for race. BUN/Creatinine Ratio 9.3 LAB CHEMISTRY METHOD 05/21/2024 11:20 AM [facility] Calcium 9.4 8.5 - 10.5 mg/dL LAB CHEMISTRY METHOD 05/21/2024 11:20 AM [facility] AST (SGOT) 20 10 - 42 unit/L LAB CHEMISTRY METHOD 05/21/2024 11:20 AM [facility] ALT (SGPT) 32 10 - 60 unit/L LAB CHEMISTRY METHOD 05/21/2024 11:20 AM [facility] Alkaline Phosphatase 64 42 - 121 unit/L LAB CHEMISTRY METHOD 05/21/2024 11:20 AM [facility] Total Protein 8.2(H) 6.0 - 8.0 g/dL LAB CHEMISTRY METHOD 05/21/2024 11:20 AM EST [facility] Albumin 3.6 3.2 - 5.0 g/dL LAB CHEMISTRY METHOD 05/21/2024 11:20 AM EST [facility] Total Bilirubin 0.3 0.0 - 1.4 mg/dL LAB CHEMISTRY METHOD 05/21/2024 11:20 AM EST [facility] Blood Venous blood specimen / Unknown Venipuncture / Unknown 05/21/2024 10:24 AM EST 05/21/2024 10:45 AM EST Fannie ARDON LAB BLOOD ORDERABLES Final Re sult [facility] [address] [place] [address], [place] [phone] * POC , urine manually resulted (03/14/2024 7:59 PM EST) [facility] HCG, Ur POC Negative Negative POC hCG Int QC Pass? Yes Yes Urine Urine specimen obtained by clean catch procedure / Unknown 03/14/2024 7:59 PM EST Unruly Wise MD POINT OF CARE TEST ENTER/ EDIT ORDERABLES Final Result * Troponin I high sensitivity (03/14/2024 6:21 PM EST) [facility] High Sensitivity Troponin I <3 <=54 ng/L LAB CHEMISTRY METHOD 03/14/2024 7:12 PM EST [facility] Blood Venous blood specimen / Unknown Venipuncture / Unknown 03/14/2024 6:21 PM EST 03/14/2024 6:47 PM EST Narrative [facility] - 03/14/2024 7:12 PM EST High levels of biotin in samples may falsely decrease hsTroponin values. ??Use caution when interpreting hsTroponin results in patients taking biotin who exhibit renal impairment (eGFR <60) or in patients taking more than 20 mg/day of biotin. us Unruly Wise MD LAB BLOOD ORDERABLES Mayra l Result Performing Organization Address [facility] Co de Phone Number [facility] [address] [place] [address], [place] [phone] * (ABNORMAL) Magnesium (03/14/2024 6:21 PM EST) [facility] Magnesium 1.7(L) 1.9 - 2.6 mg/dL LAB CHEMISTRY METHOD 03/14/2024 7:12 PM EST [facility] Blood Venous blood specimen / Unknown Venipuncture / Unknown 03/14/2024 6:21 PM EST 03/14/2024 6:47 PM EST Unruly Wise MD LAB BLOOD ORDERABLES Mayra l Result Performing Organization Address [facility] Co de Phone Number [facility] [address] [place] [address], [place] [phone] * ECG 12 lead (03/14/2024 6:04 PM EST) [facility] Ventricular Rate ECG 78 BPM GEMUSE Atrial Rate 78 BPM GEMUSE P-R Interval 148 ms GEMUSE QRS Duration 66 ms GEMUSE Q-T Interval 378 ms GEMUSE QTc 430 ms GEMUSE P Wave [place] 35 degrees GEMUSE R [place] 29 degrees GEMUSE T [place] 23 degrees GEMUSE ECG Interpretation Normal sinus rhythm Normal ECG When compared with ECG of 09-NOV-2020 07:41, No significant change was found Confirmed by TOD HERNANDEZ ([id number]) on 03/15/2024 12:25:26 AM GEMUSE 03/14/2024 6:04 PM EST 03/15/2024 12:25 AM EST us Unruly Wise MD ECG ORDERABLES Final Res ult [facility] * ECG-Annotated (03/14/2024) Provider Onbase MD ECG ORDERABLES Final Result * (ABNORMAL) Thyroid stimulating hormone with reflex to free t4 and free t3 (03/12/2024 9:00 AM EST) TSH 6.78(H) 0.40 - 4.00 mcIU/mL LAB CHEMISTRY METHOD 03/12/2024 12:43 PM EST [facility] Blood Venous blood specimen / Unknown Venipuncture / Unknown 03/12/2024 9:00 AM EST 03/12/2024 9:00 AM EST Negro Fraire MD LAB BLOOD ORDERABLES Final Res ult Performing Organization Address [facility]/ZIP Co de Phone Number [facility] [address] [place] [address], [place] [phone] * Free thyroxine with reflex to free triiodothyronine (03/12/2024 9:00 AM EST) Free T4 0.85 0.70 - 1.80 ng/dL LAB CHEMISTRY METHOD 03/12/2024 1:09 PM EST [facility] Blood Venous blood specimen / Unknown Venipuncture / Unknown 03/12/2024 9:00 AM EST 03/12/2024 9:00 AM EST Negro Fraire MD LAB BLOOD ORDERABLES Final Res ult Performing Organization Address City/[facility]/ZIP Co de Phone Number [facility] [address] [place] [address], [place] [phone] * Triiodothyronine free (03/12/2024 9:00 AM EST) T3, Free 253 230 - 420 pcg/dL LAB CHEMISTRY METHOD 03/12/2024 1:35 PM EST [facility] Blood Venous blood specimen / Unknown Venipuncture / Unknown 03/12/2024 9:00 AM EST 03/12/2024 9:00 AM EST Negro Fraire MD LAB BLOOD ORDERABLES Final Res ult [facility] [address] [place] [address], * Depression Screening (10/02/2023) Depression Screening abstracted Historical Provider HEALTH MAINTENANCE Final Result * Lipid panel (04/12/2023) LDL/HDL Ratio 4 0 - 4 Triglycerides 101 0 - 150 mg/dL Cholesterol 160 0 - 200 mg/dL HDL 41 >=40 mg/dL LDL Cholesterol 99 0 - 100 mg/dL Blood Venous blood specimen / Unknown Historical Provider LAB BLOOD ORDERABLES Mayra l Result from Last 3 Months or Most Recently Relevant to Health Maintenance Insurance Care Teams Detail Drafter Relationship Specialty Start Date End Date Negro Fraire MD [address] [place] [phone] PCP - General Internal Medicine 01/24/24
--- OUTSIDE RECORDS SUMMARY | 2024-05-28 19:47 | XMS_ITS | Encounter Summary ---
Author Organization [facility] Address [address] [place] [address] Care Team Providers Care Overcoiler Name Role Phone Negro Fraire MD Primary Care Provider Reason for Visit * Reason Comments Abdominal Pain Vomiting Diarrhea Since Saturday Encounter Details Date Type Department Care Team ([facility] st Contact Info) Description 05/21/2024 2:25 PM EST - 05/21/2024 8:11 PM EST Emergency [facility] Emergency [address] [place] [id number] Epigastric pain (Primary Dx) Discharge Disposition: Home or Self Care Social History Tobacco Use Types Packs/Day Years [...] care for your loved ones. For example, director child development center or elderly care for an older adult? [...] 7:24 PM EST Sexual Orientation Straight 03/02/2024 9 :19 AM EST documented as of this encounter Last Filed Vital Signs Vital Sign Reading Time Taken Comments Blood Pressure 105/67 05/21/2024 8:10 PM EST Pulse 87 05/21/2024 8:10 PM EST Temperature 36.7 ??C (98.1 ??F) 05/21/2024 8:10 PM ES T Respiratory Rate 18 05/21/2024 8:10 PM EST Oxygen Saturation 100% 05/21/2024 8:10 PM EST Inhaled Oxygen Concentration - - Weight 108 kg (238 lb) 05/21/2024 9:52 AM EST Height 167.6 cm (5' 6 ) 05/21/2024 9:52 AM EST Body Mass Index 38.41 05/21/2024 9:52 AM EST documented in this encounter Functional Status * Are you deaf or do you have serious difficulty hearing? Answer Date of Assessment Author No 03/14/2024 6:25 PM Luz Merritt RN * Are you blind or do you have serious difficulty seeing, even when wearing glasses? Answer Date of Assessment Author No 03/14/2024 6:25 PM uLz Merritt RN * Do you have serious [...] Luz Merritt RN documented in this encounter Discharge Instructions * Discharge Instructions* REVA Springer - 05/21/2024 7:45 PM EST Your ultrasound showed no evidence of any acute issues with your liver or gallbladder. You may havesome gastritis which is irritation of the stomach lining please take Pepcid as prescribed. Please eat bland foods over the next several days follow-up with your primary care provider. * Attachments The following attachments cannot be sent through Care Everywhere. * Abdominal Pain (Macedonian) documented in this encounter Medications at Time of Discharge cholecalciferol (VITAMIN D-3) 125 mcg (5,000 unit) capsule Take 1 Tablet by mouth daily. famotidine (PEPCID) 20 mg tablet Take 1 tablet (20 mg total) by mouth 2 (two) times a day for 15 days. 30 tablet 05/21/2024 06/05/2024 FLUoxetine (PROzac) 40 mg capsule Take 1 Capsule by mouth daily. hydrOXYzine HCL (ATARAX) 25 mg tablet Take 1 Tablet by mouth 3 times daily as needed for Itching for up to 360 days. levothyroxine (SYNTHROID, LEVOTHROID) 50 mcg tablet Take 1 tablet (50 mcg total) by mouth 1 (one) time each day. 90 each 1 04/14/2024 semaglutide (Wegovy) 0.25 mg/0.5 mL injection penIndications:Mo rbid obesity (CMS/HCC) Inject 0.25 mg under the skin every 7 (seven) days. 2 mL 02/04/2024 documented as of this encounter Ordered Prescriptions Prescription Sig Dispense Quantity Refills Last Filled Start Date End Date famotidine (PEPCID) 20 mg tablet Take 1 tablet (20 mg total) by mouth 2 (two) times a day for 15 days. 30 tablet 05/21/2024 06/05/2024 documented in this encounter Discharge Disposition Disposition Code Departure Means Destination Comment s Home or Self Care documented in this encounter Progress Notes * Rosenda Machado - 05/21/2024 10:31 AM EST Urine preg neg, Urine samp obtained has pt sticker and in bag in triage Rosenda Machado 05/21/24 1032 * Deborah Rodney RN - 05/21/2024 9:54 AM EST Pt reports nvd since Saturday with constant RUQ pain and intermittent sharp increased pain. Pain increases after eating. Decreased po intake in the last 4 days. * Maylin Taylor RN - 05/21/2024 9:47 AM EST Right upper quad abdominal pain with nasuea, vomiting and dirrhea since Saturday. PT seen at urgent care today and was found to have right upper quad tenderness. PT sent in to rule out gallbladder stones vs infection. * REVA Springer - 05/21/2024 9:45 AM EST Emergency Medicine Note Patient Name: Risa Zarate Initial Evaluation: 05/21/2024 : 1990 Patient's PCP: Negro Fraire MD Emergency Physician: REVA Springer History of Present Illness Chief Complaint: Chief Complaint Patient presents with Abdominal Pain Vomiting Diarrhea Since Saturday HPI: 33-year-old female who comes in today for nausea vomiting diarrhea which started Saturday night.She reports she has been also having some intermittent right upper quadrant pain that is been getting worse over the last several days. She reports it hurts worse with palpation. She has had some decreased p.o. intake. ROS: I have performed a ROS with the pertinent positives and negatives documented in the history ofpresent illness. Previous History Past Medical History: Diagnosis Date Abnormal Pap smear of cervix 02/11/2018 DX:Abnormal Pap smear of cervix Chronic upper back pain 02/11/2018 DX:Chronic upper back pain; COMMENT: Large breasts Hypothyroidism 05/20/2018 DX:Hypothyroidism Mixed anxiety and depressive disorder 02/11/2018 DX:Mixed anxiety and depressive disorder Scoliosis 02/11/2018 DX:Scoliosis; COMMENT: Bracing as child Past Surgical History: Procedure Laterality Date APPENDECTOMY 2003 PROCEDURE: HISTORICAL APPENDECTOMY CERVICAL BIOPSY W/ LOOP ELECTRODE EXCISION 01/2017 PROCEDURE: WY CONIZATION CERVIX W/WO D&C RPR ELTRD EXC; COMMENT: Sandy Michelle Social History Tobacco Use Smoking status: Never Smokeless tobacco: Never Substance Use Topics Alcohol use: Yes Drug use: No Family History Problem Relation Name Age of Onset Hypertension Mother Thyroid disease Father Diabetes Brother Riesner Hypertension Maternal Grandmother Dementia Maternal Grandfather No Known Problems Paternal Grandmother No Known Problems Paternal Grandfather No Known Problems Brother No Known Problems Brother No Known Problems Brother No Known Problems Brother No Known Problems Daughter No Known Problems Son has No Known Allergies. No current facility-administered medications on file prior to encounter. Current Outpatient Medications on File Prior to Encounter Medication Sig Dispense Refill cholecalciferol (VITAMIN D-3) 125 mcg (5,000 unit) capsule Take 1 Tablet by mouth daily. FLUoxetine (PROzac) 40 mg capsule Take 1 Capsule by mouth daily. hydrOXYzine HCL (ATARAX) 25 mg tablet Take 1 Tablet by mouth 3 times daily as needed for Itching for up to 360 days. levothyroxine (SYNTHROID, LEVOTHROID) 50 mcg tablet Take 1 tablet (50 mcg total) by mouth 1 (one) time each day. 90 each 1 semaglutide (Wegovy) 0.25 mg/0.5 mL injection pen Inject 0.25 mg under the skin every 7 (seven) days. 2 mL 0 Physical Exam ED Triage Vitals [05/21/24 0954] Temp Heart Rate Resp BP 36.5 ??C (97.7 ??F) 94 18 116/69 SpO2 Temp src Heart Rate Source Patient Position 99 % -- -- -- BP Location FiO2 (%) -- -- General: Well-appearing, well nourished, in no acute distress HEENT: PERRL, EOMI, external ears and nose appear unremarkable, airway is patent Neck: Supple, full range of motion Chest: Clear to auscultation; no evidence of respiratory distress Circulatory: RRR, extremities well perfused Abdomen: Non-distended, Non-Tender Extremities: Normal ROM, No edema Skin: Warm and dry Neuro: Alert and oriented, no focal deficits Results Labs Reviewed COMPREHENSIVE METABOLIC PANEL - Abnormal Result Value Sodium 139 Potassium 3.8 Chloride 106 CO2 25 Anion Gap 8 Glucose 102 (*) BUN 7 Creatinine 0.75 eGFR 109 BUN/Creatinine Ratio 9.3 Calcium 9.4 AST (SGOT) 20 ALT (SGPT) 32 Alkaline Phosphatase 64 Total Protein 8.2 (*) Albumin 3.6 Total Bilirubin 0.3 CBC WITH AUTO DIFFERENTIAL - Abnormal WBC 8.6 RBC 4.80 Hemoglobin 12.2 Hematocrit 39.5 MCV 83.2 MCH 25.7 (*) MCHC 30.9 (*) RDW 14.8 Platelets 380 MPV 9.3 NRBC 0.0 NRBC Absolute 0.00 Neutrophils Relative 74.1 Lymphocytes Relative 17.1 Monocytes Relative 5.6 Eosinophils Relative 2.2 Basophils Relative 0.5 Immature Granulocytes Relative 0.5 Neutrophils Absolute 6.40 Lymphocytes Absolute 1.48 Monocytes Absolute 0.48 Eosinophils Absolute 0.19 Basophils Absolute 0.04 Immature Granulocytes Absolute 0.04 (*) LIPASE - Normal Lipase 45 CBC AND DIFFERENTIAL Narrative: The following orders were created for panel order CBC and differential. Procedure Abnormality Status --------- ------ CBC auto differential[[id number]] Abnormal Final result Please view results for these tests on the individual orders. POC , URINE DIAGNOSTIC HCG, Ur POC Negative POC hCG Int QC Pass? Yes EXPIRATION DATE POC LOT NUMBER POC Abnormal Labs Reviewed COMPREHENSIVE METABOLIC PANEL - Abnormal; Notable for the following components: Result Value Glucose 102 (*) Total Protein 8.2 (*) All other components within normal limits CBC WITH AUTO DIFFERENTIAL - Abnormal; Notable for the following components: MCH 25.7 (*) MCHC 30.9 (*) Immature Granulocytes Absolute 0.04 (*) All other components within normal limits US Abdomen Limited Final Result NEGATIVE RIGHT UPPER QUADRANT ULTRASOUND. -------- FINAL REPORT -------- Dictated By: Manuel Samuels Dictated Date: 05/21/2024 16:55 ET Assigned Physician: Manuel Samuels Reviewed and Electronically Signed By: Manuel Samuels Signed Date: 05/21/2024 16:56 ET Workstation ID: [id number] Transcribed By: Self Edit Transcribed Date: 05/21/2024 16:55 ET I have discussed the incidental/abnormal imaging and/or lab abnormalities with the patient and haveinstructed them the need for further evaluation and workup with their primary care doctor. I have provided the patient with a paper copy of the abnormality. The laboratory results, imaging results and other diagnostic exam results were reviewed in the EMR. EKG Interpretation Critical Care Time None ? Medical Decision Making Medications ketorolac (TORADOL) injection 15 mg (15 mg intramuscular Given 05/21/241722) ondansetron ODT (ZOFRAN-ODT) disintegrating tablet 4 mg (4 mg oral Given 05/21/241722) ED Course as of 05/22/242242May 22, 20242241 33-year-old female comes in today for chief complaint of right upper quadrant pain. Ultrasoundshows no evidence of acute cholecystitis or other hepatobiliary etiology patient's symptoms were likely indicative of gastritis feeling substantially better following medication ministration here in the emergency department. [DD] ED Course User Index [DD] REVA Springer Clinical Impressions as of 05/22/243 Epigastric pain Procedures Procedures Diagnosis 1. Epigastric pain Disposition Discharge ED Prescriptions Medication Sig Dispense Start Date End Date Auth. Provider famotidine (PEPCID) 20 mg tablet Take 1 tablet (20 mg total) by mouth 2 (two) times a day for 15 days. 30 tablet 05/21/2024 06/05/2024 REVA Springer Physician Attestation REVA Springer 05/21/24 1559 REVA Springer 05/22/242242 Cosigned by Troy Alarcon MD at 05/23/2024 1:30 PM EST Associated attestation - Troy Alarcon MD - 05/23/2024 1:30 PM EST I have reviewed and I agree with the Nurse practitioner's/Physician assistant sales director's note and plan by REVA Springer dated 05/21/2024, except as noted: None Troy Alarcon MD 05/23/24 1:30 PM EST documented in this encounter Plan of Treatment Upcoming Encounters Date Type Department Care Team (Late st Contact Info) Description 06/22/2024 4:00 PM EDT Office Visit Internal Medicine - [address] [phone] Negro Fraire MD [address] [place] [id number] Pending Results Name Type Priority Associated Diagnoses Date /Time POC , urine manually resulted Point of Care Testing STAT 05/21/2024 10:28 AM EST Scheduled Orders Name Type Priority Associated Diagnoses Orde r Schedule POC , urine manually resulted Point of Care Testing STAT Once for 1 Occurrences starting 05/21/2024 until 05/21/2024 documented as of this encounter Procedures Procedure Name Priority Date/Time Associated Diagnosis Comments US ABDOMEN LIMITED STAT 05/21/2024 4: 44 PM EST PATINO URINE CULTURE TUBE Routine 05/21/2024 10:24 AM EST TIGER TOP URINE TUBE Routine 05/21/2024 10:24 AM EST EXTRA TUBES Routine 05/21/2024 10:24 AM EST CBC WITH AUTO DIFFERENTIAL STAT 05/21/2024 10:24 AM EST CBC AND DIFFERENTIAL STAT 05/21/2024 10:24 AM EST LIPASE STAT 05/21/2024 10:24 AM EST COMPREHENSIVE METABOLIC PANEL STAT 05/21/2024 10:24 AM EST documented in this encounter Results * US Abdomen Limited (05/21/2024 4:44 PM EST) Anatomical Region Laterality Modality Body Ultrasound 05/21/2024 4:55 PM EST Impressions 05/21/2024 4:56 PM EST NEGATIVE RIGHT UPPER QUADRANT ULTRASOUND. -------- FINAL REPORT -------- Dictated By: Manuel Samuels Dictated Date: 05/21/2024 16:55 ET Assigned Physician: Manuel Samuels Reviewed and Electronically Signed By: Manuel Samuels Signed Date: 05/21/2024 16:56 ET Workstation ID: [id number] Transcribed By: Self Edit Transcribed Date: 05/21/2024 16:55 ET Narrative 05/21/2024 4:56 PM EST Exam: US ABDOMEN LIMITED Date of Study: 05/21/2024 4:18 PM CLINICAL INFORMATION: Eval for gallbladder disease TECHNIQUE: Real-time ultrasound scanning of the region of interest performed by the grain broker. Street Light Mechanic static images and video clips are submitted [...] of the region of interestperformed by the grain broker. Street Light Mechanic static images and video clipsare submitted for review. FINDINGS: The IVC is unremarkable. The pancreas is obscured. The liver dgyxqnpf32.1 cm and is slightly echogenic suggesting fatty [...] Signed Date: 05/21/2024 16:56 ET Workstation ID: [id number] Transcribed By: Self Edit Transcribed Date: 05/21/2024 16:55 ET us Michael ARDON IMG US PROCEDURES Final Resul t * [place] top urine tube (05/21/2024 10:24 AM EST) Extra Tube Hold for add-ons. 05/21/2024 3:01 PM EST [facility] Comment:Auto resulted. Urine Urine specimen obtained by clean catch procedure / Unknown 05/21/2024 10:24 AM EST 05/21/2024 1:54 PM EST us Negro Fraire MD LAB URINE ORDERABLES Final Res ult Performing Organization Address City/[facility]/ZIP Co de Phone Number [facility] [address] [place] [address], [place] [phone] * [place] urine culture tube (05/21/2024 10:24 AM EST) Pathologist [facility] Extra Tube Hold for add-ons. 05/21/2024 3:01 PM EST [facility] Comment:Auto resulted. Urine Urine specimen obtained by clean catch procedure / Unknown 05/21/2024 10:24 AM EST 05/21/2024 1:54 PM EST us Negro Fraire MD LAB URINE ORDERABLES Final Res ult Performing Organization Address [facility]/ZIP Co de Phone Number [facility] [address] [place] [address], [place] [phone] * (ABNORMAL) CBC auto differential (05/21/2024 10:24 AM EST) [facility] WBC 8.6 4.8 - 10.8 K/mcL LAB HEMETOLOGY METHOD 05/21/2024 10:55 AM [facility] RBC 4.80 3.80 - 4.80 M/mcL LAB HEMETOLOGY METHOD 05/21/2024 10:55 AM [facility] Hemoglobin 12.2 11.5 - 16.0 g/dL LAB HEMETOLOGY METHOD 05/21/2024 10:55 AM [facility] Hematocrit 39.5 35.0 - 47.0 % LAB HEMETOLOGY METHOD 05/21/2024 10:55 AM [facility] MCV 83.2 79.0 - 98.0 FL LAB HEMETOLOGY METHOD 05/21/2024 10:55 AM [facility] MCH 25.7(L) 27.0 - 32.0 pcg LAB HEMETOLOGY METHOD 05/21/2024 10:55 AM [facility] MCHC 30.9(L) 32.0 - 37.0 g/dL LAB HEMETOLOGY METHOD 05/21/2024 10:55 AM [facility] RDW 14.8 11.0 - 15.0 % LAB HEMETOLOGY METHOD 05/21/2024 10:55 AM [facility] Platelets 380 130 - 400 K/mcL LAB HEMETOLOGY METHOD 05/21/2024 10:55 AM [facility] MPV 9.3 7.0 - 11.0 FL LAB HEMETOLOGY METHOD 05/21/2024 10:55 AM [facility] NRBC 0.0 <1.0 % LAB HEMETOLOGY METHOD 05/21/2024 10:55 AM [facility] NRBC Absolute 0.00 <0.10 K/mcL LAB HEMETOLOGY METHOD 05/21/2024 10:55 AM [facility] Neutrophils Relative 74.1 % LAB HEMETOLOGY METHOD 05/21/2024 10:55 AM [facility] Lymphocytes Relative 17.1 % LAB HEMETOLOGY METHOD 05/21/2024 10:55 AM [facility] Monocytes Relative 5.6 % LAB HEMETOLOGY METHOD 05/21/2024 10:55 AM [facility] Eosinophils Relative 2.2 % LAB HEMETOLOGY METHOD 05/21/2024 10:55 AM [facility] Basophils Relative 0.5 % LAB HEMETOLOGY METHOD 05/21/2024 10:55 AM [facility] Immature Granulocytes Relative 0.5 % LAB HEMETOLOGY METHOD 05/21/2024 10:55 AM [facility] Neutrophils Absolute 6.40 1.50 - 7.00 K/mcL LAB HEMETOLOGY METHOD 05/21/2024 10:55 AM EST [facility] Lymphocytes Absolute 1.48 1.00 - 5.00 K/[facility] LAB HEMETOLOGY METHOD 05/21/2024 10:55 AM EST [facility] Monocytes Absolute 0.48 0.20 - 1.00 K/[facility] LAB HEMETOLOGY METHOD 05/21/2024 10:55 AM EST [facility] Eosinophils Absolute 0.19 0.00 - 0.50 K/[facility] LAB HEMETOLOGY METHOD 05/21/2024 10:55 AM EST [facility] Basophils Absolute 0.04 0.00 - 0.20 K/[facility] LAB HEMETOLOGY METHOD 05/21/2024 10:55 AM EST [facility] Immature Granulocytes Absolute 0.04(H) 0.00 - 0.03 K/[facility] LAB HEMETOLOGY METHOD 05/21/2024 10:55 AM EST [facility] Blood Venous blood specimen / Unknown Venipuncture / Unknown 05/21/2024 10:24 AM EST 05/21/2024 10:45 AM EST us Fannie ARDON LAB BLOOD ORDERABLES Final Re sult Performing Organization Address [facility]/ZIP Co de Phone Number [facility] [address] [place] [address], * Lipase (05/21/2024 10:24 AM EST) Lipase 45 13 - 75 unit/L LAB CHEMISTRY METHOD 05/21/2024 11:20 AM EST [facility] Blood Venous blood specimen / Unknown Venipuncture / Unknown 05/21/2024 10:24 AM EST 05/21/2024 10:45 AM EST us Fannie ARDON LAB BLOOD ORDERABLES Final Re sult [facility] [address] [place] [address], [place] [phone] * (ABNORMAL) Comprehensive metabolic panel (05/21/2024 10:24 AM EST) Sodium 139 133 - 145 mmol/L LAB CHEMISTRY METHOD 05/21/2024 11:20 AM EST [facility] Potassium 3.8 3.5 - 5.5 mmol/L LAB CHEMISTRY METHOD 05/21/2024 11:20 AM [facility] Chloride 106 96 - 110 mmol/L LAB CHEMISTRY METHOD 05/21/2024 11:20 AM [facility] CO2 25 21 - 32 mmol/L LAB CHEMISTRY METHOD 05/21/2024 11:20 AM [facility] Anion Gap 8 3 - 11 LAB CHEMISTRY METHOD 05/21/2024 11:20 AM [facility] Glucose 102(H) 70 - 100 mg/dL LAB CHEMISTRY METHOD 05/21/2024 11:20 AM [facility] BUN 7 5 - 25 mg/dL LAB CHEMISTRY METHOD 05/21/2024 11:20 AM [facility] Creatinine 0.75 0.50 - 1.10 mg/dL LAB CHEMISTRY METHOD 05/21/2024 11:20 AM [facility] eGFR 109 >=60 mL/min/1. 73m2 LAB CHEMISTRY METHOD 05/21/2024 11:20 AM [facility] Comment:Calculation based on the??Chronic Kidney Disease Epidemiology Collaboration (CKD-EPI) equation refit??without adjustment for race. BUN/Creatinine Ratio 9.3 LAB CHEMISTRY METHOD 05/21/2024 11:20 AM [facility] Calcium 9.4 8.5 - 10.5 mg/dL LAB CHEMISTRY METHOD 05/21/2024 11:20 AM [facility] AST (SGOT) 20 10 - 42 unit/L LAB CHEMISTRY METHOD 05/21/2024 11:20 AM [facility] ALT (SGPT) 32 10 - 60 unit/L LAB CHEMISTRY METHOD 05/21/2024 11:20 AM [facility] Alkaline Phosphatase 64 42 - 121 unit/L LAB CHEMISTRY METHOD 05/21/2024 11:20 AM [facility] Total Protein 8.2(H) 6.0 - 8.0 g/dL LAB CHEMISTRY METHOD 05/21/2024 11:20 AM EST [facility] Albumin 3.6 3.2 - 5.0 g/dL LAB CHEMISTRY METHOD 05/21/2024 11:20 AM [facility] Total Bilirubin 0.3 0.0 - 1.4 mg/dL LAB CHEMISTRY METHOD 05/21/2024 11:20 AM [facility] Blood Venous blood specimen / Unknown Venipuncture / Unknown 05/21/2024 10:24 AM EST 05/21/2024 10:45 AM EST us Fannie ARDON LAB BLOOD ORDERABLES Final Re sult [facility] [address] [place] [address], documented in this encounter Visit Diagnoses Diagnosis Epigastric pain- Primary Abdominal pain, epigastric documented in this encounter Administered Medications Inactive Administered Medications - up to 3 most recent administrations Medication Order MAR Action Action Date Dose Rate Site ketorolac (TORADOL) injection 15 mg 15 mg, intramuscular, Once, On Francine 05/21/24 at 1710, For 1 dose Given 05/21/2024 5:23 PM EST 15 mg Left Deltoid ondansetron ODT (ZOFRAN-ODT) disintegrating tablet 4 mg 4 mg, oral, Once, On Francine 05/21/24 at 1710, For 1 dose Given 05/21/2024 5:23 PM EST 4 mg documented in this encounter Active and Recently Administered Medications Times are shown in EST. Scheduled Medication Order 05/19/2024 05/20/2024 05/21/2024 ketorolac (TORADOL) injection 15 mg (COMPLETED) 15 mg, intramuscular, Once, On Francine 05/21/24 at 1710, For 1 dose 1723 (Given - Provid er: Hawa Cantor RN) ondansetron ODT (ZOFRAN-ODT) disintegrating tablet 4 mg (COMPLETED) 4 mg, oral, Once, On Francine 05/21/24 at 1710, For 1 dose 1723 (Given - Provid er: Hawa Cantor RN) documented in this encounter Additional Health Concerns Assessment Noted Time PHQ-9 Depression Total Score: 6 03/11/20 24 4:17 PM EST documented as of this encounter Care Teams Overcoiler Relationship Specialty Start Date End Date Negro Fraire MD [address] [place] [id number] PCP - General Internal Medicine 01/24/24 documented as of this encounter
--- OUTSIDE RECORDS SUMMARY | 2024-05-28 19:47 | XMS_ITS | Clinical Summary ---
Author Organization [facility] Address [address] [place] [address] Care Team Providers Care Casting Trucker Name Role Phone Pcp, No Primary Care Provider Unavailabl e Immunizations Name Administration Dates Next Due Tdap 04/15/2014 Varicella 01/26/1997 Social History Tobacco Use Types Packs/Day Years Used Date Smoking Tobacco: Never Assessed Sex and Gender Information Value Date Recorded Sex Assigned at Not on file Gender Identity Not on file Sexual Orientation Not on file Plan of Treatment Health Maintenance Due Date Last Done Comments Hepatitis C Virus Screening 1990 HIV Screening 12/19/2004 Hepatitis B Vaccines (1 of 3 - 19+ 3-dose series) 12/19/2010 Pap Smear (Ages 21-65) 12/19/2012 Influenza Vaccine 10/31/2023 02/12/2014, 12/23/2008, 03/07/2006 COVID-19 Vaccine (2023-2 5 season) 2023 DTaP/Tdap/Td Vaccines (2 - T d or Tdap) 04/15/2024 04/15/2014 HPV Vaccines Aged Out No longer eligi ble based on patient's age to complete this topic Pneumococcal Vaccine: Pediatric (0-5 Years) and At-Risk Patients (6 to 49 Years) Aged Out No longer eligible b ased on patient's age to complete this topic Care Teams Casting Trucker Relationship Specialty Start Date End Date Pcp, No [address] [place] [address] PCP - General 08/28/22
== END 2024-05-28 18:13 | disposition home or self-care (01) ==
LOC: HO.MRI 18:12
PROVIDERS: PCP Internal Medicine; Visit Provider Physician Assistant Medical
DX: M23.92 Unspecified internal derangement of left knee (principal)
CPT/HCPCS: 73721

== ENCOUNTER → 2024-05-28 18:14 | Outpatient (BNV) | payer OTHER, SELFPAY | PROVIDERS: PCP Internal Medicine; Visit Provider Radiology Diagnostic Radiology | DX: M23.92 Unspecified internal derangement of left knee (principal); S80.02XA Contusion of left knee, initial encounter | CPT/HCPCS: 73721 ==

== ENCOUNTER → 2024-06-01 10:42 | Outpatient (BNVA) | payer OTHER, SELFPAY | PROVIDERS: PCP Internal Medicine; Visit Provider Physician Assistant Medical | DX: Z13.89 Encounter for screening for other disorder (principal) | CPT/HCPCS: 99213 ==

== ENCOUNTER → 2024-06-04 13:17 | Outpatient (BNVA) | payer OTHER, SELFPAY | PROVIDERS: PCP Internal Medicine; Visit Provider Physician Assistant Medical | DX: Z13.89 Encounter for screening for other disorder (principal) | CPT/HCPCS: 72110; 73502; 99214 ==

== ENCOUNTER → 2024-06-08 10:18 | Outpatient (BNVA) | payer OTHER, SELFPAY | PROVIDERS: PCP Internal Medicine; Visit Provider Internal Medicine | DX: Z13.89 Encounter for screening for other disorder (principal) | CPT/HCPCS: 99213 ==

== ENCOUNTER 2024-06-09 08:55 | Outpatient (AMB) | payer OTHER, SELFPAY ==
--- NOTE | 2024-06-09 08:59 | MHC.OFFVIS ---
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 Patient was seen at work connection after a fall landing on her left knee at her work parking lot. She attended PT about 4-5 times and this had increased her pain. She presented back to work connection, an MRI was obtained and she was referred to orthopedics. Currently she has constant pain located at the anterior aspect of knee and her pain is now radiating up to her hip. She also has intermittent numbness and tingling in her leg. She found no relief with steroids and temporary relief for about an hour with use of lidocaine patch. 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 She states she slipped on ice at work . She states prior to the injury she did not have any knee pain. She continues to have discomfort since the fall in the anterior lateral portion of the knee. She has discomfort with most activities including stairs and bending. She states she has worked with physical therapy with minimal relief. She has taken ibuprofen and prednisone with no relief. 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 She has tenderness over the lateral retropatellar region. She has full range of motion with no crepitus. No tenderness over the medial or lateral joint line. Calf supple nontender neurovascularly intact. Results Reviewed Results Reviewed: MR knee LT wo con IMPRESSION: Findings compatible with strain versus low-grade partial tear of the semimembranosus. Otherwise unremarkable MRI of the left knee. X-rays of the left knee obtained on 05/28 show lateralization of the patella. Assessment & Plan Assessment & Plan (1) Patellofemoral syndrome of left knee: Code(s): M22.2X2 - Patellofemoral disorders, left knee Category: Medical Plan: We discussed options today which include physical therapy and cortisone injection. I explained to the patient how cortisone injection can help reduce the inflammation and allow her to progress with physical therapy without pain. I stressed the importance of compliance with home exercise program along with modification of activities. Left knee injection performed today which the patient tolerated well. She was sent a prescription for ibuprofen 800 mg 3 times a day to take for the next 2 weeks. Symptoms persist or worsen she will contact our office otherwise follow up as needed. Medications: New ibuprofen 800 mg PO Q8H PRN 90 tabs 3RF pain 30 days S52.209D - Unspecified fracture of shaft of unspecified ulna, subsequent encounter for closed fracture with routine healing Coding Level of Care Code New Pt Level 3 (83673) Complex EM visit Add On G2211 Diagnoses Patellofemoral syndrome of left knee M22.2X2
[2024-06-09 09:03] VITALS: BMI 38.1
--- OUTSIDE RECORDS SUMMARY | 2024-06-09 09:49 | XMS_ITS | Data Portability ---
Author Organization [facility] [address] Address [address] [place] [address] Care Team Providers Care Supervisor Car Installations Name Role Phone [facility] Primary Care Provi marry Assessment No assessment recorded. Plan of Treatment Reminders Order Date Submit Date Provider Last Modified By Organization Details Last Modified Time Details Appointments None recorded. Lab test, urine 2022 023 [email or web address] 247 [address] [address], [address] [place], [address], 3 16:53:55 rapid flu (A+B) 2022 023 [email or web address] 247 [address] [address], [address] [place], [address], 3 16:53:55 rapid SARS CoV 2 Ag, QL IA, respiratory specimen 2022 023 [email or web address] 247 [address] [address], [address] [place], [address], 3 16:53:55 urinalysis, dipstick 2022 023 [email or web address] 247 [facility] [address] [place], [address], 3 16:53:55 Referral None recorded. Procedures None recorded. Surgeries None recorded. Imaging None recorded. Medication Orders albuterol sulfate HFA 90 mcg/actuati on aerosol inhaler 2022 023 [facility][id number], [address] [place], [address], 17:44:04 benzonatate 100 mg capsule 2022 023 [facility][id number], [address] [place], [address], 17:44:03 doxylamine 10 mg-pyridoxi ne (vit B6) 10 mg tablet,park yed release 2022 023 [email or web address][id number], [address] [place] [address], [address], 17:14:33 Patient TargetsNo targets recorded. Patient Instructions Encounter Date Encounter Id Patient Instructions Last Modified By Organization Details Last Modified Time 08/25/2022 [id number] nausea and vomiting: care instructions [email or web address] Not available 08/25/2022 16:53:55 GI Clear Liquids [...] much worse, you should seek treatment immediately. [email or web address] Not available 08/25/2022 16:51:04 Follow-up with your OB Doctor within 1 week. Seek Emergency Medical evaluation for any worsening symptoms. [email or web address] Not available 08/25/2022 16:53:41 03/19/2023 [id number] wheezing or bronchoconstrictio n: care instructions [email or web address] Not available 03/19/2023 17:44:16 cough: care instructions [email or web address] Not available 03/19/2023 17:43:59 viral infections : care instructions [email or web address] Not available 03/19/2023 17:43:59 Assessing respiratory illnesses [...] of breath, chest pain, coughing up blood. [email or web address] Not available 03/19/2023 17:48:13 Reason for Referral None Reported. Results Created Date Observation Date Name Description Value Unit Range Abnormal Flag Note LastModifiedBy Organization Detail LastModifiedTime 08/26/19 23 08/25/2022 rapid SARS CoV 2 Ag, QL IA, respi rator y speci men Unknown Analyte Normal =Negat dada Not Available [address] [place], [address], 08/25/2022 15:44:57 08/26/19 23 08/25/2022 rapid SARS CoV 2 Ag, QL IA, respi rator y speci men Unknown Analyte negati ve Not Available [address] [place], [address], 08/25/2022 15:44:57 08/26/19 23 08/25/2022 rapid flu (A+B) Unknown Analyte Normal = Negati ve Not Available [facility] [address] [place], [address], 08/25/2022 15:44:36 08/26/19 23 08/25/2022 rapid flu (A+B) Unknown Analyte negati ve Not Available [facility] [address] [place] [address], [address], 08/25/2022 15:44:36 08/26/19 23 08/25/2022 rapid flu (A+B) Unknown Analyte Normal = Negati ve Not Available [facility] [address] [place] [address], [address], 08/25/2022 15:44:36 08/26/19 23 08/25/2022 rapid flu (A+B) Unknown Analyte negati ve Not Available [facility] [address] [place], [address], 08/25/2022 15:44:36 08/26/19 23 08/25/2022 urina lysis , dipst ick Unknown Analyte Normal = light yellow Not Available [facility] [address] [place], [address], 08/25/2022 15:56:56 08/26/19 23 08/25/2022 urina lysis , dipst ick Unknown Analyte Yellow Not Available [facility] [address] [place], [address], 08/25/2022 15:56:56 08/26/1908/25/2022 urina lysis , dipst ick Unknown Analyte Normal = clear Not Available [facility] [address] [place], [address], 08/25/2022 15:56:56 08/26/19 23 08/25/2022 urina lysis , dipst ick Unknown Analyte Clear Not Available [address] [place] [address] [address] [place], [address], 08/25/2022 15:56:56 08/26/19 23 08/25/2022 urina lysis , dipst ick Unknown Analyte Normal = negati ve Not Available [facility] [address] [place], [address], 08/25/2022 15:56:56 08/26/19 23 08/25/2022 urina lysis , dipst ick Unknown Analyte Negati ve Not Available [facility] [address] [place], [address], 08/25/2022 15:56:56 08/26/1908/25/2022 urina lysis , dipst ick Unknown Analyte Normal = Negati ve Not Available [facility] [address] [place], [address], 08/25/2022 15:56:56 08/26/19 23 08/25/2022 urina lysis , dipst ick Unknown Analyte Negati ve Not Available [address] [place], [address], 08/25/2022 15:56:56 08/26/19 23 08/25/2022 urina lysis , dipst ick Unknown Analyte Normal = Negati ve Not Available [address] [place], [address], 08/25/2022 15:56:56 08/26/1908/25/2022 urina lysis , dipst ick Unknown Analyte Negati ve Not Available [facility] [address] [place], [address], 08/25/2022 15:56:56 08/26/1908/25/2022 urina lysis , dipst ick Unknown Analyte Normal = 1.010, 1.015, 1.020 Not Available [facility] [address] [place], [address], 08/25/2022 15:56:56 08/26/1908/25/2022 urina lysis , dipst ick Unknown Analyte 1.020 Not Available [facility] [address] [place], [address], 08/25/2022 15:56:56 08/26/1908/25/2022 urina lysis , dipst ick Unknown Analyte Normal = Negati ve Not Available [facility] [address] [place], [address], 08/25/2022 15:56:56 08/26/1908/25/2022 urina lysis , dipst ick Unknown Analyte Negati ve Not Available [address] [place], [address], 08/25/2022 15:56:56 08/26/1908/25/2022 urina lysis , dipst ick Unknown Analyte Normal = 6.5, 7.0, 7.5, 8.0 Not Available [address] [place], [address], 08/25/2022 15:56:56 08/26/19 23 08/25/2022 urina lysis , dipst ick Unknown Analyte 7.0 Not Available [facility] [address] [place], [address], 08/25/2022 15:56:56 08/26/19 23 08/25/2022 urina lysis , dipst ick Unknown Analyte Normal = Negati ve Not Available [address] [place], [address], 08/25/2022 15:56:56 08/26/1908/25/2022 urina lysis , dipst ick Unknown Analyte Negati ve Not Available [facility] [address] [place], [address], 08/25/2022 15:56:56 08/26/19 23 08/25/2022 urina lysis , dipst ick Unknown Analyte Normal = 0.2, 1.0 Not Available [facility] [address] [place], [address], 08/25/2022 15:56:56 08/26/19 23 08/25/2022 urina lysis , dipst ick Unknown Analyte 0.2 E.U./d L Not Available [facility] [address] [place], [address], 08/25/2022 15:56:56 08/26/19 23 08/25/2022 urina lysis , dipst ick Unknown Analyte Normal = Negati ve Not Available [address] [place], [address], 08/25/2022 15:56:56 08/26/19 23 08/25/2022 urina lysis , dipst ick Unknown Analyte Negati ve Not Available [address] [place], [address], 08/25/2022 15:56:56 08/26/1908/25/2022 urina lysis , dipst ick Unknown Analyte Normal = Negati ve Not Available [address] [place], [address], 08/25/2022 15:56:56 08/26/19 23 08/25/2022 urina lysis , dipst ick Unknown Analyte Negati ve Not Available [facility] [address] [place], [address], 08/25/2022 15:56:56 08/26/19 23 08/25/2022 pregn jade test, urine Unknown Analyte Normal = Negati ve Not Available [facility] [address] [place], [address], 08/25/2022 15:44:25 08/26/1908/25/2022 pregn jade test, urine Unknown Analyte positi ve Not Available [facility] [address] [place], [address], 08/25/2022 15:44:25 Result Notes None recorded. Problems Name Problem SNOMED Code Status Onset Date Resolution Date Notes Provider Name and Address Organization Details Recorded Time Disorder of thyroid gland [id number] Active 023 DAYRON [place] - [facility] 3 15:39:32 Problem Notes None recorded. Procedures Surgical History Date Name Laterality Status Provider Name and Address Organization Details Recorded Time Virtual Visit completed Maggie Diaz MD [address] [place] [address] [place], [address], [place] - [facility] 03/20/2023 12:07:15 Appendectomy [...] Updated DateTime 3 167.64 cm 35.5 kg/m2 22681.3 2 g 0 97.8 [degF] 18 /min 99 /min 99 % 99 % 130 mm[Hg] 80 mm[Hg] DAYRON GARAY [place] - [facility] 3 15:44:18 Date Recorded Body height Body mass index (BMI) Body weight Provider Name and Address Organization Details Last Updated DateTime 03/19/2023 167.64 cm 35.5 kg/m2 34038.32 g Mónica Hendrix PA - [facility] [...] SNOMED-CT Code Diagnosis ICD10 Code Diagnosis Note [id number] [address] [place] [address] 12/06/2021 09:02:56 12/06/2021 10:22:07 [id number] [address] [place] [address] 11/20/2021 08:49:48 11/20/2021 10:12:13 [id number] HUYEN COOK MD [address] [facility] [place] [address] 08/25/2022 15:18:12 08/25/2022 16:55:31 Morning sickness 77824499 O21.9 Follow-up with your OB Doctor within 1 week.Seek Emergency Medical evaluation for any worsening symptoms. [id number] [place] [address] [facility] [place] CÉ[place] [address] 03/19/2023 16:55:18 03/19/2023 17:52:18 Viral syndrome 142798605 B34.9 Acute bronchospasm 16972 28707 9100 J98.01 Health Concerns Section Related Observation LastModified by Organization Detai ls LastModified Time None Recorded Concern Status LastModified by Organization Details LastModified Time None Recorded Advance Directives Directive None Recorded Payers Encounter Date Sequence Insurance Name Policy Number Policy Mederos Covered Member ID Mederos Member ID Guarantor Name 08/25/2022 1 [facility] PLAN - [facility] (MEDICAID REPLACEMENT - HMO) VERNELL Zarate [id number] Risa Zarate 03/19/2023 1 [employer] (EPO) [id number] Risa Zarate [id number] Risa Zarate Notes Date Note Type Note [...] - 2 weeks HUYEN COOK MD [address] [facility] [place], [address], [place] - [facility] 08/25/2022 17:09:44 3 [...] No body aches. Maggie Diaz MD [address] [facility] [place], [address], [place] - [facility] 03/20/2023 12:10:29 OBGyn Episode No OBEpisode recorded.
--- OUTSIDE RECORDS SUMMARY | 2024-06-09 09:49 | XMS_ITS | Encounter Summary ---
Author Organization [facility] Address [address] [place] [address] Care Team Providers Care Glass Inspector Name Role Phone Negro Fraire MD Primary Care Provider [phone] Reason for Visit * Reason Onset Date Comments provider call back 05/22/2024 Encounter Details Date Type Department Care Team (Late st Contact Info) Description 05/22/2024 Telephone Internal Medicine - [facility] [address] [place] [phone] Negro Fraire MD [address] [place] [phone] provider call back Social History Tobacco Use [...] for your loved ones. For example, child support officer or elderly care for an older adult? [...] today to schedule an er f/u from [facility], there were not appts available until theend may. She requested to have a call back from a nurse to discuss an earlier appt. Per pt. Thank you documented in this encounter Plan of Treatment Upcoming Encounters Date Type Department Care Team (Late st Contact Info) Description 06/22/2024 4:00 PM EDT Office Visit Internal Medicine - [address] [address] Negro Fraire MD [address] [place] [phone] documented as of this encounter Visit Diagnoses Not on filedocumented in this encounter Additional Health Concerns Assessment Noted Time PHQ-9 Depression Total Score: 6 03/11/20 4:17 PM EST documented as of this encounter Care Teams Glass Inspector Relationship Specialty Start Date End Date Negro Fraire MD [address] [place] [address] PCP - General Internal Medicine 01/24/24 documented as of this encounter
--- OUTSIDE RECORDS SUMMARY | 2024-06-09 09:49 | XMS_ITS | Clinical Summary ---
Author Organization [facility] Address [address] [place] [address] Care Team Providers Care Dosier Operator Name Role Phone Pcp, No Primary Care [...] age to complete this topic Care Teams Dosier Operator Relationship Specialty Start Date End Date Pcp, No [address] [place] [address] PCP - General 08/28/22
--- OUTSIDE RECORDS SUMMARY | 2024-06-09 09:49 | XMS_ITS | Clinical Summary ---
Author Organization [facility] [address] [facility] Building Address [address] [place] [address] Phone Care Team Providers Care Director Of Golf Name Role Phone Negro Fraire MD Primary Care Provider Allergies No known active allergies Medications cholecalciferol [...] day for 15 days. 30 tablet 05/21/2024 06/06/19 25 Active Problems Problem Noted Date Diagnosed Date Vitamin D deficiency 04/12/2023 Hypothyroidism 05/20/2018 Abnormal Pap smear of cervix 02/11/2018 Chronic upper back pain 02/11/2018 Overview (01/20/2024): Large breasts Scoliosis 02/11/2018 Overview (01/20/2024): Bracing as child Mixed anxiety and depressive disorder 02/11/2018 Encounters Date Type Department Care Team Description 05/22/2024 12:00 PM EST Office Visit Internal Medicine - [address] [phone] Nathan Sawyer NP Abdominal pain, unspecified abdominal location (Primary Dx) 05/22/2024 Telephone Internal Medicine - [address] [phone] Negro Fraire MD provider call back 05/21/2024 2:25 PM EST - 05/21/2024 8:11 PM [facility] [address] [place] [phone] Epigastric pain (Primary Dx) Discharge Disposition: Home or Self Care 03/14/2024 6:12 PM EST - 03/14/2024 8:01 PM [facility] [address] [place] [phone] Unruly Wise MD Hypothyroidism, unspecified type (Primary Dx); Low magnesium level Discharge Disposition: Home or Self Care 03/12/2024 8:00 AM EST Office Visit Internal Medicine - [address] [phone] Negro Fraire MD Acne vulgaris (Primary Dx); Hypothyroidism, unspecified type; Class 2 obesity due to excess calories without serious comorbidity with body mass index (BMI) of 39.0 to 39.9 in adult 03/12/2024 Telephone Internal Medicine - [address] [phone] Negro Fraire MD Med Change Request 03/11/2024 Telephone Bariatric Surgery - [place] [facility] [address] [place] [phone] Browning, Karla E, PA Prior auth (Prior auth) from Last 3 Months Immunizations Name Administration Dates Next Due DTaP (Infanrix) 6wks to less than 7yo ,12/11/1993,1992,1992,03/01/1992 CRoH-HNB-RWO (Pentacel) 2mo to less than 5yo 12/21/1995,05/02/1993,06/21/1992,1991 HPV, Quadrivalent 08/27/2008,11/27/2007,03/27/20 06 Hepatitis B (Ftmldnb-D-Dtodn , Recombivax HB-Adult) 19yo and older 04/14/2018 [...] BIOPSY W/ LOOP ELECTRODE EXCISION 01/2017 PROCEDURE: MS CONIZATION CERVIX W/WO D&C RPR ELTRD EXC; COMMENT: Sandy Michelle APPENDECTOMY 2003 PROCEDURE: HISTORICAL APPENDECTOMY Medical History [...] for your loved ones. For example, child and adolescent psychologist or elderly care for an older adult? [...] PM EDT Office Visit Internal Medicine - [address] [phone] Negro Fraire MD [address] [place] [address] Health Maintenance Due Date Last Done Comments [...] Procedure Name Priority Date/Time Associated Diagnosis Comments EXTERNAL XRAY REPORT 06/04/2024 EXTERNAL XRAY REPORT 06/04/2024 EXTERNAL MRI REPORT 05/29/2024 EXTERNAL MRI REPORT 05/29/2024 US ABDOMEN LIMITED STAT 05/21/2024 4: 45 [...] Recently Relevant to Health Maintenance Results * External Xray Report (06/04/2024) Only the most recent of2 resultswithin the time period is included. Anatomical Region Laterality Modality Radiographic Dacia ging us Provider [facility] XR PROCEDURES Final Result * External MRI Report (05/29/2024) Only the most recent of2 resultswithin the time period is included. Anatomical Region Laterality Modality Magnetic Resonan ce us Provider [facility] MRI PROCEDURES Final Result * US Abdomen Limited (05/21/2024 4:44 PM EST) Anatomical Region Laterality Modality Body Ultrasound 05/21/2024 4:55 PM EST Impressions 05/21/2024 4:56 PM EST NEGATIVE RIGHT UPPER QUADRANT ULTRASOUND. -------- FINAL REPORT -------- Dictated By: Manuel Samuels Dictated Date: 05/21/2024 16:55 ET Assigned Physician: Manuel Samuels Reviewed and Electronically Signed By: Manuel Samuels Signed Date: 05/21/2024 16:56 ET Workstation ID: [id number] Transcribed By: Self Edit Transcribed Date: 05/21/2024 16:55 ET Narrative 05/21/2024 4:56 PM EST Exam: US ABDOMEN LIMITED Date of Study: 05/21/2024 4:18 PM CLINICAL INFORMATION: Eval for gallbladder disease TECHNIQUE: Real-time ultrasound scanning of the region of interest performed by the nailhead puncher. Account Manager Sales Representative static images and video clips are submitted [...] of the region of interestperformed by the nailhead puncher. Account Manager Sales Representative static images and video clipsare submitted for review. FINDINGS: The IVC is unremarkable. The pancreas is obscured. The liver tjxsrooj75.1 cm and is slightly echogenic suggesting fatty [...] Signed Date: 05/21/2024 16:56 ET Workstation ID: [id number] Transcribed By: Self Edit Transcribed Date: 05/21/2024 16:55 ET us Michael ARDON IMG US PROCEDURES Final Resul t * Patino urine culture tube (05/21/2024 10:24 AM EST) Extra Tube Hold for add-ons. 05/21/2024 3:01 PM EST [facility] Comment:Auto resulted. Urine Urine specimen obtained by clean catch procedure / Unknown 05/21/2024 10:24 AM EST 05/21/2024 1:54 PM EST us Negro Fraire MD LAB URINE ORDERABLES Final Res ult Performing Organization Address City/[facility]/ZIP Co de Phone Number [facility] [address] [place] [address], [place] [phone] * Winston top urine tube (05/21/2024 10:24 AM EST) Pathologist [facility] Extra Tube Hold for add-ons. 05/21/2024 3:01 PM EST [facility] Comment:Auto resulted. Urine Urine specimen obtained by clean catch procedure / Unknown 05/21/2024 10:24 AM EST 05/21/2024 1:54 PM EST us eNgro Fraire MD LAB URINE ORDERABLES Final Res ult Performing Organization Address [facility]/ZIP Co de Phone Number [facility] [address] [place] [address], [place] [phone] * (ABNORMAL) CBC auto differential (05/21/2024 10:24 AM EST) Only the most recent of2 resultswithin the time period is included. [facility] WBC 8.6 4.8 - 10.8 K/mcL LAB HEMETOLOGY METHOD 05/21/2024 10:55 AM [facility] RBC 4.80 3.80 - 4.80 M/mcL LAB HEMETOLOGY METHOD 05/21/2024 10:55 AM [facility] Hemoglobin 12.2 11.5 - 16.0 g/dL LAB HEMETOLOGY METHOD 05/21/2024 10:55 AM [facility] Hematocrit 39.5 35.0 - 47.0 % LAB HEMETOLOGY METHOD 05/21/2024 10:55 AM [facility] MCV 83.2 79.0 - 98.0 FL LAB HEMETOLOGY METHOD 05/21/2024 10:55 AM [facility] MCH 25.7(L) 27.0 - 32.0 pcg LAB HEMETOLOGY METHOD 05/21/2024 10:55 AM [facility] MCHC 30.9(L) 32.0 - 37.0 g/dL LAB HEMETOLOGY METHOD 05/21/2024 10:55 AM [facility] RDW 14.8 11.0 - 15.0 % LAB HEMETOLOGY METHOD 05/21/2024 10:55 AM [facility] Platelets 380 130 - 400 K/mcL LAB HEMETOLOGY METHOD 05/21/2024 10:55 AM [facility] MPV 9.3 7.0 - 11.0 FL LAB HEMETOLOGY METHOD 05/21/2024 10:55 AM [facility] NRBC 0.0 <1.0 % LAB HEMETOLOGY METHOD 05/21/2024 10:55 AM [facility] NRBC Absolute 0.00 <0.10 K/mcL LAB HEMETOLOGY METHOD 05/21/2024 10:55 AM [facility] Neutrophils Relative 74.1 % LAB HEMETOLOGY METHOD 05/21/2024 10:55 AM [facility] Lymphocytes Relative 17.1 % LAB HEMETOLOGY METHOD 05/21/2024 10:55 AM [facility] Monocytes Relative 5.6 % LAB HEMETOLOGY METHOD 05/21/2024 10:55 AM [facility] Eosinophils Relative 2.2 % LAB HEMETOLOGY METHOD 05/21/2024 10:55 AM [facility] Basophils Relative 0.5 % LAB HEMETOLOGY METHOD 05/21/2024 10:55 AM [facility] Immature Granulocytes Relative 0.5 % LAB HEMETOLOGY METHOD 05/21/2024 10:55 AM EST [facility] Neutrophils Absolute 6.40 1.50 - 7.00 K/mcL LAB HEMETOLOGY METHOD 05/21/2024 10:55 AM EST [facility] Lymphocytes Absolute 1.48 1.00 - 5.00 K/mcL LAB HEMETOLOGY METHOD 05/21/2024 10:55 AM EST [facility] Monocytes Absolute 0.48 0.20 - 1.00 K/[facility] LAB HEMETOLOGY METHOD 05/21/2024 10:55 AM EST [facility] Eosinophils Absolute 0.19 0.00 - 0.50 K/[facility] LAB HEMETOLOGY METHOD 05/21/2024 10:55 AM EST [facility] Basophils Absolute 0.04 0.00 - 0.20 K/mcL LAB HEMETOLOGY METHOD 05/21/2024 10:55 AM EST [facility] Immature Granulocytes Absolute 0.04(H) 0.00 - 0.03 K/[facility] LAB HEMETOLOGY METHOD 05/21/2024 10:55 AM EST [facility] Blood Venous blood specimen / Unknown Venipuncture / Unknown 05/21/2024 10:24 AM EST 05/21/2024 10:45 AM EST us Fannie ARDON LAB BLOOD ORDERABLES Final Re sult [facility] [address] [place] [address], * Lipase (05/21/2024 10:24 AM EST) Only the most recent of2 resultswithin the time period is included. Lipase 45 13 - 75 unit/L LAB CHEMISTRY METHOD 05/21/2024 11:20 AM EST [facility] Blood Venous blood specimen / Unknown Venipuncture / Unknown 05/21/2024 10:24 AM EST 05/21/2024 10:45 AM EST us Fannie ARDON LAB BLOOD ORDERABLES Final Re sult [facility] [address] [place] [address], [place] [phone] * (ABNORMAL) Comprehensive metabolic panel (05/21/2024 10:24 AM EST) Only the most recent of2 resultswithin the time period is included. Sodium 139 133 - 145 mmol/L LAB CHEMISTRY METHOD 05/21/2024 11:20 AM [facility] Potassium 3.8 3.5 - 5.5 mmol/L LAB CHEMISTRY METHOD 05/21/2024 11:20 AM [facility] Chloride 106 96 - 110 mmol/L LAB CHEMISTRY METHOD 05/21/2024 11:20 AM [facility] CO2 25 21 - 32 mmol/L LAB CHEMISTRY METHOD 05/21/2024 11:20 AM [facility] Anion Gap 8 3 - 11 LAB CHEMISTRY METHOD 05/21/2024 11:20 AM [facility] Glucose 102(H) 70 - 100 mg/dL LAB CHEMISTRY METHOD 05/21/2024 11:20 AM [facility] BUN 7 5 - 25 mg/dL LAB CHEMISTRY METHOD 05/21/2024 11:20 AM [facility] Creatinine 0.75 0.50 - 1.10 mg/dL LAB CHEMISTRY METHOD 05/21/2024 11:20 AM [facility] eGFR 109 >=60 mL/min/1. 73m2 LAB CHEMISTRY METHOD 05/21/2024 11:20 AM [facility] Comment:Calculation based on the??Chronic Kidney Disease Epidemiology Collaboration (CKD-EPI) equation refit??without adjustment for race. BUN/Creatinine Ratio 9.3 LAB CHEMISTRY METHOD 05/21/2024 11:20 AM [facility] Calcium 9.4 8.5 - 10.5 mg/dL LAB CHEMISTRY METHOD 05/21/2024 11:20 AM [facility] AST (SGOT) 20 10 - 42 unit/L LAB CHEMISTRY METHOD 05/21/2024 11:20 AM [facility] ALT (SGPT) 32 10 - 60 unit/L LAB CHEMISTRY METHOD 05/21/2024 11:20 AM [facility] Alkaline Phosphatase 64 42 - 121 unit/L LAB CHEMISTRY METHOD 05/21/2024 11:20 AM [facility] Total Protein 8.2(H) 6.0 - 8.0 g/dL LAB CHEMISTRY METHOD 05/21/2024 11:20 AM [facility] Albumin 3.6 3.2 - 5.0 g/dL LAB CHEMISTRY METHOD 05/21/2024 11:20 AM [facility] Total Bilirubin 0.3 0.0 - 1.4 mg/dL LAB CHEMISTRY METHOD 05/21/2024 11:20 AM [facility] Blood Venous blood specimen / Unknown Venipuncture / Unknown 05/21/2024 10:24 AM EST 05/21/2024 10:45 AM EST Fannie ARDON LAB BLOOD ORDERABLES Final Re sult [facility] [address] [place] [address], * POC , urine manually resulted (03/14/2024 7:59 PM EST) HCG, Ur POC Negative Negative POC hCG Int QC Pass? Yes Yes Urine Urine specimen obtained by clean catch procedure / Unknown 03/14/2024 7:59 PM EST Unruly Wise MD POINT OF CARE TEST ENTER/ EDIT ORDERABLES Final Result * Troponin I high sensitivity (03/14/2024 6:21 PM EST) [facility] High Sensitivity Troponin I <3 <=54 ng/L LAB CHEMISTRY METHOD 03/14/2024 7:12 PM EST [facility] Blood Venous blood specimen / Unknown Venipuncture / Unknown 03/14/2024 6:21 PM EST 03/14/2024 6:47 PM EST Narrative [facility] - 03/14/2024 7:12 PM EST High levels of biotin in samples may falsely decrease hsTroponin values. ??Use caution when interpreting hsTroponin results in patients taking biotin who exhibit renal impairment (eGFR <60) or in patients taking more than 20 mg/day of biotin. Unruly Wise MD LAB BLOOD ORDERABLES Mayra l Result Performing Organization Address City/[facility]/ZIP Co de Phone Number [facility] [address] [place] [address], [place] [phone] * (ABNORMAL) Magnesium (03/14/2024 6:21 PM EST) [facility] Magnesium 1.7(L) 1.9 - 2.6 mg/dL LAB CHEMISTRY METHOD 03/14/2024 7:12 PM EST [facility] Blood Venous blood specimen / Unknown Venipuncture / Unknown 03/14/2024 6:21 PM EST 03/14/2024 6:47 PM EST Unruly Wise MD LAB BLOOD ORDERABLES Mayra l Result [facility] [address] [place] [address], [place] [phone] * ECG 12 lead (03/14/2024 6:04 PM EST) [facility] Ventricular Rate ECG 78 BPM GEMUSE Atrial Rate 78 BPM GEMUSE P-R Interval 148 ms GEMUSE QRS Duration 66 ms GEMUSE Q-T Interval 378 ms GEMUSE QTc 430 ms GEMUSE P Wave Reliance 35 degrees GEMUSE R Reliance 29 degrees GEMUSE T Reliance 23 degrees GEMUSE ECG Interpretation Normal sinus rhythm Normal ECG When compared with ECG of 09-NOV-2020 07:41, No significant change was found Confirmed by TOD HERNANDEZ ([id number]) on 03/15/2024 12:25:26 AM GEMUSE 03/14/2024 6:04 PM EST 03/15/2024 12:25 AM EST Unruly Wise MD ECG ORDERABLES Final Res ult Performing Organization Address City/[facility]/ZIP Co de Phone Number [facility] * ECG-Annotated (03/14/2024) Provider Onbase ECG ORDERABLES Final Result * (ABNORMAL) Thyroid stimulating hormone with reflex to free t4 and free t3 (03/12/2024 9:00 AM EST) TSH 6.78(H) 0.40 - 4.00 mcIU/mL LAB CHEMISTRY METHOD 03/12/2024 12:43 PM EST [facility] Blood Venous blood specimen / Unknown Venipuncture / Unknown 03/12/2024 9:00 AM EST 03/12/2024 9:00 AM EST Negro Fraire MD LAB BLOOD ORDERABLES Final Res ult Performing Organization Address City/[facility]/ZIP Co de Phone Number [facility] [address] [place] [address], [place] [phone] * Free thyroxine with reflex to free triiodothyronine (03/12/2024 9:00 AM EST) Free T4 0.85 0.70 - 1.80 ng/dL LAB CHEMISTRY METHOD 03/12/2024 1:09 PM EST [facility] Blood Venous blood specimen / Unknown Venipuncture / Unknown 03/12/2024 9:00 AM EST 03/12/2024 9:00 AM EST us Negro Fraire MD LAB BLOOD ORDERABLES Final Res ult Performing Organization Address City/[facility]/ZIP Co de Phone Number [facility] [address] [place] [address], [place] [phone] * Triiodothyronine free (03/12/2024 9:00 AM EST) T3, Free 253 230 - 420 pcg/dL LAB CHEMISTRY METHOD 03/12/2024 1:35 PM EST [facility] Blood Venous blood specimen / Unknown Venipuncture / Unknown 03/12/2024 9:00 AM EST 03/12/2024 9:00 AM EST Negro Fraire MD LAB BLOOD ORDERABLES Final Res ult Performing Organization Address City/[facility]/ZIP Co de Phone Number [facility] [address] [place] [address], [place] [phone] * Depression Screening (10/02/2023) Pathologist [facility] Depression Screening abstracted Historical Provider HEALTH MAINTENANCE Final Result * Lipid panel (04/12/2023) Pathologist [facility] LDL/HDL Ratio 4 0 - 4 Triglycerides 101 0 - 150 mg/dL Cholesterol 160 0 - 200 mg/dL HDL 41 >=40 mg/dL LDL Cholesterol 99 0 - 100 mg/dL Blood Venous blood specimen / Unknown Historical Provider LAB BLOOD ORDERABLES Mayra l Result from Last 3 Months or Most Recently Relevant to Health Maintenance Insurance Care Teams Director Of Golf Relationship Specialty Start Date End Date Negro Fraire MD [address] [place] [phone] PCP - General Internal Medicine 01/24/24
--- OUTSIDE RECORDS SUMMARY | 2024-06-09 09:49 | XMS_ITS | Encounter Summary ---
Author Organization [facility] Address [address] [place] [address] Care Team Providers Care Health Consultant Name Role Phone Negro Fraire MD Primary Care Provider [phone] Reason for Visit * Reason Comments Follow-up Er f/u gi issues Encounter Details Date Type Department Care Team (Late st Contact Info) Description 05/22/2024 12:00 PM EST Office Visit Internal Medicine - [address] [phone] Nathan Sawyer NP [address] [place] [address] Abdominal pain, unspecified abdominal location (Primary Dx) [...] for your loved ones. For example, child abuse worker or elderly care for an older adult? [...] PM EDT Office Visit Internal Medicine - [address] [phone] Negro Fraire MD [address] [place] [phone] documented as of this encounter Visit Diagnoses Diagnosis Abdominal pain, unspecified abdominal location- Primary documented in this encounter Additional Health Concerns Assessment Noted Time PHQ-9 Depression Total Score: 6 03/11/20 24 4:17 PM EST documented as of this encounter Care Teams Health Consultant Relationship Specialty Start Date End Date Negro Fraire MD [address] [place] [phone] PCP - General Internal Medicine 01/24/24 documented as of this encounter
--- OUTSIDE RECORDS SUMMARY | 2024-06-09 09:49 | XMS_ITS ---
Author Name [facility] Organization Unknown Encounters Encounter Type Encounter Reason Primary Diagnosis Location Date [facility] 08/31/2022
--- OUTSIDE RECORDS SUMMARY | 2024-06-09 09:49 | XMS_ITS | Encounter Summary ---
Author Organization [facility] Address [address] [place] [address] Care Team Providers Care Layout Inspector Name Role Phone Negro Fraire MD Primary Care Provider [phone] Reason for Visit * Reason Comments Abdominal Pain Vomiting Diarrhea Since Saturday Encounter Details Date Type Department Care Team ([facility] st Contact Info) Description 05/21/2024 2:25 PM EST - 05/21/2024 8:11 PM EST Emergency [facility] Emergency [address] [place] [phone] Epigastric pain (Primary Dx) Discharge Disposition: Home [...] care for your loved ones. For example, childcare teacher or elderly care for an older [...] sent through Care Everywhere. * Abdominal Pain (Ku[place]i) documented in this encounter Medications at Time [...] every 7 (seven) days. 2 mL 02/04/2024 famotidine (PEPCID) 20 mg tablet Take 1 tablet (20 mg total) by mouth 2 (two) times a day for 15 days. 30 tablet 05/21/2024 06/05/2024 documented as of this encounter Ordered Prescriptions [...] BIOPSY W/ LOOP ELECTRODE EXCISION 01/2017 PROCEDURE: [place] CONIZATION CERVIX W/WO D&C RPR ELTRD EXC; [...] Procedure Abnormality Status --------- ------ CBC auto differential[[id number]] Abnormal Final result Please view results for [...] -------- FINAL REPORT -------- Dictated By: Manuel Samules Dictated Date: 05/21/2024 16:55 ET Assigned Physician: Manuel Samuels Reviewed and Electronically Signed By: Manuel Samuels Signed Date: 05/21/2024 16:56 ET Workstation ID: [id number] Transcribed By: Self Edit Transcribed Date: 05/21/2024 [...] I agree with the Nurse practitioner's/Physician assistant corporate secretary's note and plan by REVA Springer dated 05/21/2024, except as noted: None Troy Alarcon MD 05/23/24 1:30 PM EST documented in this encounter Plan of Treatment Upcoming Encounters Date Type Department Care Team (Late st Contact Info) Description 06/22/2024 4:00 PM EDT Office Visit Internal Medicine - [address] [address] Negro Fraire MD [address] [place] [phone] Pending Results Name Type Priority Associated Diagnoses [...] Signed Date: 05/21/2024 16:56 ET Workstation ID: [id number] Transcribed By: Self Edit Transcribed Date: 05/21/2024 16:55 ET Narrative 05/21/2024 4:56 PM EST Exam: US ABDOMEN LIMITED Date of Study: 05/21/2024 4:18 PM CLINICAL INFORMATION: Eval for gallbladder disease TECHNIQUE: Real-time ultrasound scanning of the region of interest performed by the family practice nurse practitioner. Fishing Instructor static images and video clips are submitted [...] of the region of interestperformed by the family practice nurse practitioner. Fishing Instructor static images and video clipsare submitted for review. FINDINGS: The IVC is unremarkable. The pancreas is obscured. The liver nqjhxxso02.1 cm and is slightly echogenic suggesting fatty [...] Signed Date: 05/21/2024 16:56 ET Workstation ID: [id number] Transcribed By: Self Edit Transcribed Date: 05/21/2024 16:55 ET us Michael ARDON IMG US PROCEDURES Final Resul t * [place] top urine tube (05/21/2024 10:24 AM EST) Extra Tube Hold for add-ons. 05/21/2024 3:01 PM EST [facility] ([facility]) [facility] Comment:Auto resulted. Urine Urine specimen obtained by clean catch procedure / Unknown 05/21/2024 10:24 AM EST 05/21/2024 1:54 PM EST us Negro Fraire MD LAB URINE ORDERABLES Final Res ult Performing Organization Address City/[facility]/ZIP Co de Phone Number [facility] [address] [place] [address], [place] [phone] * [place] urine culture tube (05/21/2024 10:24 AM EST) Pathologist [facility] Extra Tube Hold for add-ons. 05/21/2024 3:01 PM EST [facility] Comment:Auto resulted. Urine Urine specimen obtained by clean catch procedure / Unknown 05/21/2024 10:24 AM EST 05/21/2024 1:54 PM EST us Negro Fraire MD LAB URINE ORDERABLES Final Res ult Performing Organization Address [facility]/ZIP Co de Phone Number [facility] [address] [place] [address], [place] [phone] * (ABNORMAL) CBC auto differential (05/21/2024 10:24 AM EST) [facility] WBC 8.6 4.8 - 10.8 K/mcL LAB HEMETOLOGY METHOD 05/21/2024 10:55 AM [facility] RBC 4.80 3.80 - 4.80 M/mcL LAB HEMETOLOGY METHOD 05/21/2024 10:55 AM [facility] Hemoglobin 12.2 11.5 - 16.0 g/dL LAB HEMETOLOGY METHOD 05/21/2024 10:55 AM [facility] Hematocrit 39.5 35.0 - 47.0 % LAB HEMETOLOGY METHOD 05/21/2024 10:55 AM [facility] MCV 83.2 79.0 - 98.0 FL LAB HEMETOLOGY METHOD 05/21/2024 10:55 AM [facility] MCH 25.7(L) 27.0 - 32.0 pcg LAB HEMETOLOGY METHOD 05/21/2024 10:55 AM [facility] MCHC 30.9(L) 32.0 - 37.0 g/dL LAB HEMETOLOGY METHOD 05/21/2024 10:55 AM [facility] RDW 14.8 11.0 - 15.0 % LAB HEMETOLOGY METHOD 05/21/2024 10:55 AM [facility] Platelets 380 130 - 400 K/mcL LAB HEMETOLOGY METHOD 05/21/2024 10:55 AM [facility] MPV 9.3 7.0 - 11.0 FL LAB HEMETOLOGY METHOD 05/21/2024 10:55 AM [facility] NRBC 0.0 <1.0 % LAB HEMETOLOGY METHOD 05/21/2024 10:55 AM [facility] NRBC Absolute 0.00 <0.10 K/mcL LAB HEMETOLOGY METHOD 05/21/2024 10:55 AM [facility] Neutrophils Relative 74.1 % LAB HEMETOLOGY METHOD 05/21/2024 10:55 AM [facility] Lymphocytes Relative 17.1 % LAB HEMETOLOGY METHOD 05/21/2024 10:55 AM [facility] Monocytes Relative 5.6 % LAB HEMETOLOGY METHOD 05/21/2024 10:55 AM [facility] Eosinophils Relative 2.2 % LAB HEMETOLOGY METHOD 05/21/2024 10:55 AM [facility] Basophils Relative 0.5 % LAB HEMETOLOGY METHOD 05/21/2024 10:55 AM [facility] Immature Granulocytes Relative 0.5 % LAB HEMETOLOGY METHOD 05/21/2024 10:55 AM [facility] Neutrophils Absolute 6.40 1.50 - 7.00 K/mcL LAB HEMETOLOGY METHOD 05/21/2024 10:55 AM EST [facility] Lymphocytes Absolute 1.48 1.00 - 5.00 K/[facility] LAB HEMETOLOGY METHOD 05/21/2024 10:55 AM EST [facility] Monocytes Absolute 0.48 0.20 - 1.00 K/[facility] LAB HEMETOLOGY METHOD 05/21/2024 10:55 AM EST [facility] Eosinophils Absolute 0.19 0.00 - 0.50 K/[facility] HEMETOLOGY METHOD 05/21/2024 10:55 AM EST [facility] Basophils Absolute 0.04 0.00 - 0.20 K/[facility] HEMETOLOGY METHOD 05/21/2024 10:55 AM EST [facility]) [facility] Immature Granulocytes Absolute 0.04(H) 0.00 - 0.03 K/[facility] HEMETOLOGY METHOD 05/21/2024 10:55 AM EST [facility] Blood Venous blood specimen / Unknown Venipuncture / Unknown 05/21/2024 10:24 AM EST 05/21/2024 10:45 AM EST us Fannie ARDON LAB BLOOD ORDERABLES Final Re sult Performing Organization Address [facility]/ZIP Co de Phone Number [facility] [address] [place] [address], * Lipase (05/21/2024 10:24 AM EST) Lipase 45 13 - 75 unit/L LAB CHEMISTRY METHOD 05/21/2024 11:20 AM EST [facility] Blood Venous blood specimen / Unknown Venipuncture / Unknown 05/21/2024 10:24 AM EST 05/21/2024 10:45 AM EST us Fannie ARDON LAB BLOOD ORDERABLES Final Re sult [facility] [address] [place] [address], [place] [phone] * (ABNORMAL) Comprehensive metabolic panel (05/21/2024 10:24 AM EST) Sodium 139 133 - 145 mmol/L LAB CHEMISTRY METHOD 05/21/2024 11:20 AM EST [facility] Potassium 3.8 3.5 - 5.5 mmol/L LAB CHEMISTRY METHOD 05/21/2024 11:20 AM [facility] Chloride 106 96 - 110 mmol/L LAB CHEMISTRY METHOD 05/21/2024 11:20 AM [facility] CO2 25 21 - 32 mmol/L LAB CHEMISTRY METHOD 05/21/2024 11:20 AM [facility] Anion Gap 8 3 - 11 LAB CHEMISTRY METHOD 05/21/2024 11:20 AM [facility] Glucose 102(H) 70 - 100 mg/dL LAB CHEMISTRY METHOD 05/21/2024 11:20 AM [facility] BUN 7 5 - 25 mg/dL LAB CHEMISTRY METHOD 05/21/2024 11:20 AM [facility] Creatinine 0.75 0.50 - 1.10 mg/dL LAB CHEMISTRY METHOD 05/21/2024 11:20 AM [facility] eGFR 109 >=60 mL/min/1. 73m2 LAB CHEMISTRY METHOD 05/21/2024 11:20 AM [facility] Comment:Calculation based on the??Chronic Kidney Disease Epidemiology Collaboration (CKD-EPI) equation refit??without adjustment for race. BUN/Creatinine Ratio 9.3 LAB CHEMISTRY METHOD 05/21/2024 11:20 AM [facility] Calcium 9.4 8.5 - 10.5 mg/dL LAB CHEMISTRY METHOD 05/21/2024 11:20 AM [facility] AST (SGOT) 20 10 - 42 unit/L LAB CHEMISTRY METHOD 05/21/2024 11:20 AM [facility] ALT (SGPT) 32 10 - 60 unit/L LAB CHEMISTRY METHOD 05/21/2024 11:20 AM [facility] Alkaline Phosphatase 64 42 - 121 unit/L LAB CHEMISTRY METHOD 05/21/2024 11:20 AM [facility] Total Protein 8.2(H) 6.0 - 8.0 g/dL LAB CHEMISTRY METHOD 05/21/2024 11:20 AM EST [facility] Albumin 3.6 3.2 - 5.0 g/dL LAB CHEMISTRY METHOD 05/21/2024 11:20 AM [facility] Total Bilirubin 0.3 0.0 - 1.4 mg/dL LAB CHEMISTRY METHOD 05/21/2024 11:20 AM [facility] Blood Venous blood specimen / Unknown Venipuncture / Unknown 05/21/2024 10:24 AM EST 05/21/2024 10:45 AM EST us Fannie ARDON LAB BLOOD ORDERABLES Final Re sult [facility] [address] [place] [address], documented in this encounter Visit Diagnoses Diagnosis [...] documented as of this encounter Care Teams Layout Inspector Relationship Specialty Start Date End Date Negro Fraire MD [address] [place] [address] PCP - General Internal Medicine 01/24/24 documented as of this encounter
== END 2024-06-09 09:57 | disposition home or self-care (01) ==
LOC: HO.HOS 08:55
PROVIDERS: PCP Internal Medicine; Visit Provider Physician Assistant
DX: M22.2X2 Patellofemoral disorders, left knee (principal); W00.0XXA Fall on same level due to ice and snow, initial encounter; Z04.2 Encounter for examination and observation following work accident
CPT/HCPCS: 20610; 99203

== ENCOUNTER → 2024-06-09 08:55 | Outpatient (BNVA) | payer OTHER, SELFPAY | PROVIDERS: PCP Internal Medicine; Visit Provider Physician Assistant | DX: M22.2X2 Patellofemoral disorders, left knee (principal) | CPT/HCPCS: 20610; 99202; J1010; J2003 ==

== ENCOUNTER 2024-07-09 18:25 | Outpatient (REF) | payer OTHER, SELFPAY ==
--- NOTE | ~2024-07-09 | MR_ITS ---
EXAMINATION: MR LUMBAR SPINE WITHOUT IV CONTRAST History: PAIN LT KNEE/LEG NUMBNESS LT THIGH Technique: Sagittal T1, T2 and STIR, and axial T1 and T2 weighted images of the lumbar spine were obtained per departmental protocol. Comparison: Correlation is made with plain films of the lumbar spine dated 06/04/2024. Findings: There is mild to moderate levoscoliosis. The vertebral bodies maintain normal height and marrow signal intensity. The intervertebral discs maintain normal height and hydration. At T12-L1,there is no evidence of disc herniation, central spinal stenosis, or neural foraminal narrowing. At L1-2, there is a minimal disc bulge without central spinal stenosis or neural foraminal narrowing. At L2-3, there is no evidence of disc herniation, central spinal stenosis, or neural foraminal narrowing. At L3-4, there is no evidence of disc herniation, central spinal stenosis, or neural foraminal narrowing. At L4-5, there is no evidence of disc herniation, central spinal stenosis, or neural foraminal narrowing. At L5-S1, there is a small left paramedian/foraminal disc protrusion with annular tear. This causes left neural foraminal stenosis. There is no central spinal or right neural foraminal stenosis. The conus terminates at the T12-L1 level and demonstrates normal signal intensity. The visualized paraspinal soft tissues are unremarkable. MR/MR lumbar spine wo con Impression: 1. Mild to moderate levoscoliosis. 2. Small left paramedian/foraminal disc protrusion with annular tear at L5-S1 causing left neural foraminal stenosis. Electronically signed by: Freddy Song MD 07/10/2024 07:15 AM EDT
--- OUTSIDE RECORDS SUMMARY | 2024-07-09 18:31 | XMS_ITS | Clinical Summary ---
Author Organization [facility] Address [address] [place] [address] Care Team Providers Care Hose Finisher Name Role Phone Pcp, No Primary Care [...] age to complete this topic Care Teams Hose Finisher Relationship Specialty Start Date End Date Pcp, No [address] [place] [address] PCP - General 08/28/22
--- OUTSIDE RECORDS SUMMARY | 2024-07-09 18:31 | XMS_ITS | Data Portability ---
Author Organization [facility], [address] Address [address] [place] [address] Care Team Providers Care Bulk Materials Handling Plant Operator Name Role Phone [facility] Primary Care Provi marry Assessment No assessment recorded. Plan of Treatment Reminders Order Date Submit Date Provider Last Modified By Organization Details Last Modified Time Details Appointments None recorded. Lab test, urine 2022 023 [email or web address] 247 [address] [address], [address] [place], [address], 3 16:53:55 rapid flu (A+B) 2022 023 [email or web address] 247 [address] [address], [address] [place], [address], 3 16:53:55 rapid SARS CoV 2 Ag, QL IA, respiratory specimen 2022 023 [email or web address] 247 [address] [address], [address] [place], [address], 3 16:53:55 urinalysis, dipstick 2022 023 [email or web address] 247 [address] [address], [address] [place], [address], 3 16:53:55 Referral None recorded. Procedures None recorded. Surgeries None recorded. Imaging None recorded. Medication Orders albuterol sulfate HFA 90 mcg/actuati on aerosol inhaler 2022 023 [facility] #[id number], [address] [place], [address], 17:44:04 benzonatate 100 mg capsule 2022 023 [facility] #[id number], [address] [place], [address], 17:44:03 doxylamine 10 mg-pyridoxi ne (vit B6) 10 mg tablet,park yed release 2022 023 [email or web address] [facility]/Pharmacy #[id number], [address] [place] [address], [address], 17:14:33 Patient TargetsNo targets recorded. Patient Instructions Encounter Date Encounter Id Patient Instructions Last Modified By Organization Details Last Modified Time 08/25/2022 [id number] nausea and vomiting: care instructions [email or web address] Not available 08/25/2022 16:53:55 GI Clear Liquids [...] much worse, you should seek treatment immediately. [email or web address] Not available 08/25/2022 16:51:04 Follow-up with your OB Doctor within 1 week. Seek Emergency Medical evaluation for any worsening symptoms. [email or web address] Not available 08/25/2022 16:53:41 03/19/2023 [id number] wheezing or bronchoconstrictio n: care instructions [email or web address] Not available 03/19/2023 17:44:16 cough: care instructions [email or web address] Not available 03/19/2023 17:43:59 viral infections : care instructions [email or web address] Not available 03/19/2023 17:43:59 Assessing respiratory illnesses [...] of breath, chest pain, coughing up blood. [email or web address] Not available 03/19/2023 17:48:13 Reason for Referral None Reported. Results Created Date Observation Date Name Description Value Unit Range Abnormal Flag Note LastModifiedBy Organization Detail LastModifiedTime 08/26/19 23 08/25/2022 rapid SARS CoV 2 Ag, QL IA, respi rator y speci men Unknown Analyte Normal =Negat dada Not Available [address] [place], [address], 08/25/2022 15:44:57 08/26/19 23 08/25/2022 rapid SARS CoV 2 Ag, QL IA, respi rator y speci men Unknown Analyte negati ve Not Available [address] [place], [address], 08/25/2022 15:44:57 08/26/19 23 08/25/2022 rapid flu (A+B) Unknown Analyte Normal = Negati ve Not Available [facility] [address] [place], [address], 08/25/2022 15:44:36 08/26/19 23 08/25/2022 rapid flu (A+B) Unknown Analyte negati ve Not Available [facility] [address] [place] [address], [address], 08/25/2022 15:44:36 08/26/19 23 08/25/2022 rapid flu (A+B) Unknown Analyte Normal = Negati ve Not Available [facility] [address] [place] [address], [address], 08/25/2022 15:44:36 08/26/19 23 08/25/2022 rapid flu (A+B) Unknown Analyte negati ve Not Available [address] [place], [address], 08/25/2022 15:44:36 08/26/19 23 08/25/2022 urina lysis , dipst ick Unknown Analyte Normal = light yellow Not Available [address] [place], [address], 08/25/2022 15:56:56 08/26/19 23 08/25/2022 urina lysis , dipst ick Unknown Analyte Yellow Not Available [facility] [address] [place], [address], 08/25/2022 15:56:56 08/26/1908/25/2022 urina lysis , dipst ick Unknown Analyte Normal = clear Not Available [address] [place], [address], 08/25/2022 15:56:56 08/26/19 23 08/25/2022 urina lysis , dipst ick Unknown Analyte Clear Not Available [address] [place] [address] [address] [place], [address], 08/25/2022 15:56:56 08/26/19 23 08/25/2022 urina lysis , dipst ick Unknown Analyte Normal = negati ve Not Available [facility] [address] [place], [address], 08/25/2022 15:56:56 08/26/19 23 08/25/2022 urina lysis , dipst ick Unknown Analyte Negati ve Not Available [facility] [place], [address], 08/25/2022 15:56:56 08/26/1908/25/2022 urina lysis , dipst ick Unknown Analyte Normal = Negati ve Not Available [address] [place], [address], 08/25/2022 15:56:56 08/26/19 23 08/25/2022 urina lysis , dipst ick Unknown Analyte Negati ve Not Available [address] [place], [address], 08/25/2022 15:56:56 08/26/19 23 08/25/2022 urina lysis , dipst ick Unknown Analyte Normal = Negati ve Not Available [address] [place], [address], 08/25/2022 15:56:56 08/26/1908/25/2022 urina lysis , dipst ick Unknown Analyte Negati ve Not Available [address] [place], [address], 08/25/2022 15:56:56 08/26/1908/25/2022 urina lysis , dipst ick Unknown Analyte Normal = 1.010, 1.015, 1.020 Not Available [facility] [place], [address], 08/25/2022 15:56:56 08/26/1908/25/2022 urina lysis , dipst ick Unknown Analyte 1.020 Not Available [facility] [address] [place], [address], 08/25/2022 15:56:56 08/26/1908/25/2022 urina lysis , dipst ick Unknown Analyte Normal = Negati ve Not Available [facility] [place], [address], 08/25/2022 15:56:56 08/26/1908/25/2022 urina lysis , dipst ick Unknown Analyte Negati ve Not Available [address] [place], [address], 08/25/2022 15:56:56 08/26/1908/25/2022 urina lysis , dipst ick Unknown Analyte Normal = 6.5, 7.0, 7.5, 8.0 Not Available [address] [place], [address], 08/25/2022 15:56:56 08/26/19 23 08/25/2022 urina lysis , dipst ick Unknown Analyte 7.0 Not Available [facility] [address] [place], [address], 08/25/2022 15:56:56 08/26/19 23 08/25/2022 urina lysis , dipst ick Unknown Analyte Normal = Negati ve Not Available [address] [place], [address], 08/25/2022 15:56:56 08/26/1908/25/2022 urina lysis , dipst ick Unknown Analyte Negati ve Not Available [facility] [place], [address], 08/25/2022 15:56:56 08/26/19 23 08/25/2022 urina lysis , dipst ick Unknown Analyte Normal = 0.2, 1.0 Not Available [address] [place], [address], 08/25/2022 15:56:56 08/26/19 23 08/25/2022 urina lysis , dipst ick Unknown Analyte 0.2 E.U./d L Not Available [facility] [place], [address], 08/25/2022 15:56:56 08/26/19 23 08/25/2022 urina lysis , dipst ick Unknown Analyte Normal = Negati ve Not Available [address] [place], [address], 08/25/2022 15:56:56 08/26/19 23 08/25/2022 urina lysis , dipst ick Unknown Analyte Negati ve Not Available [address] [place], [address], 08/25/2022 15:56:56 08/26/1908/25/2022 urina lysis , dipst ick Unknown Analyte Normal = Negati ve Not Available [address] [place], [address], 08/25/2022 15:56:56 08/26/19 23 08/25/2022 urina lysis , dipst ick Unknown Analyte Negati ve Not Available [facility] [place], [address], 08/25/2022 15:56:56 08/26/19 23 08/25/2022 pregn jade test, urine Unknown Analyte Normal = Negati ve Not Available [facility] [address] [place], [address], 08/25/2022 15:44:25 08/26/1908/25/2022 pregn jade test, urine Unknown Analyte positi ve Not Available [facility] [address] [place], [address], 08/25/2022 15:44:25 Result Notes None recorded. Problems Name Problem SNOMED Code Status Onset Date Resolution Date Notes Provider Name and Address Organization Details Recorded Time Disorder of thyroid gland 17737177 Active 023 [place] - [facility] 3 15:39:32 Problem Notes None recorded. Procedures Surgical History Date Name Laterality Status Provider Name and Address Organization Details Recorded Time Virtual Visit completed Maggie Diaz MD [address] [place] [address] [place], [address], [place] - [facility] 03/20/2023 12:07:15 Appendectomy [...] Updated DateTime 3 167.64 cm 35.5 kg/m2 79157.3 2 g 0 97.8 [degF] 18 /min 99 /min 99 % 99 % 130 mm[Hg] 80 mm[Hg] DAYRON GARAY [place] - [facility] 3 15:44:18 Date Recorded Body height Body mass index (BMI) Body weight Provider Name and Address Organization Details Last Updated DateTime 03/19/2023 167.64 cm 35.5 kg/m2 37721.32 g Mónica Hendrix [place] - [facility] [...] SNOMED-CT Code Diagnosis ICD10 Code Diagnosis Note [id number] [address] [place] [address] 12/06/2021 09:02:56 12/06/2021 10:22:07 [id number] [address] [place] [address] 11/20/2021 08:49:48 11/20/2021 10:12:13 [id number] HUYEN COOK MD [address] [facility] JULIO CÉSAR bet[place]court [address] 08/25/2022 15:18:12 08/25/2022 16:55:31 Morning sickness 95708561 O21.9 Follow-up with your OB Doctor within 1 week.Seek Emergency Medical evaluation for any worsening symptoms. [id number] Maggie Diaz [place] [address] [facility] JULIO CÉSAR [place] [address] 03/19/2023 16:55:18 03/19/2023 17:52:18 Viral syndrome 959400933 B34.9 Acute bronchospasm 31655 77774 9100 J98.01 Health Concerns Section Related Observation LastModified by Organization Detai ls LastModified Time None Recorded Concern Status LastModified by Organization Details LastModified Time None Recorded Advance Directives Directive None Recorded Payers Encounter Date Sequence Insurance Name Policy Number Policy Mederos Covered Member ID Mederos Member ID Guarantor Name 08/25/2022 1 [facility] - [facility] (MEDICAID REPLACEMENT - HMO) VERNELL Zarate [id number] Risa Zarate 03/19/2023 1 [employer] (EPO) [id number] Risa Zarate [id number] Risa Zarate Notes Date Note Type Note [...] - 2 weeks HUYEN COOK MD [address] [facility] [place], [address], [place] - [facility] 08/25/2022 17:09:44 3 [...] No body aches. Maggie Diaz MD [address] [facility] [place], [address], [place] - [facility] 03/20/2023 12:10:29 OBGyn Episode No OBEpisode recorded.
--- OUTSIDE RECORDS SUMMARY | 2024-07-09 18:31 | XMS_ITS | Clinical Summary ---
Author Organization [facility] [place] [address] [facility] Building Address [address] [place] [phone] Phone Care Team Providers Care Live Truck Technician Name Role Phone Negro Fraire MD Primary Care Provider [phone] Allergies No known active allergies Medications levothyroxine (SYNTHROID, LEVOTHROID) 50 mcg tablet Take 1 tablet (50 mcg total) by mouth 1 (one) time each day. 90 each 1 5 Active cholecalciferol (VITAMIN D-3) 125 mcg (5,000 unit) capsule Take 1 Tablet by mouth daily. 06/23/19 25 Discontinue d(Discontin ued by another clinician) FLUoxetine (PROzac) 40 mg capsule Take 1 Capsule by mouth daily. 06/23/19 25 Discontinue d(Discontin ued by another clinician) hydrOXYzine HCL (ATARAX) 25 mg tablet Take 1 Tablet by mouth 3 times daily as needed for Itching for up to 360 days. 06/23/19 25 Discontinue d(Discontin ued by another clinician) semaglutide (Wegovy) 0.25 mg/0.5 mL injection penIndications: Morbid obesity (CMS/HCC V24, CMS/HCC V28) Inject 0.25 mg under the skin every 7 (seven) days. 2 mL 4 06/23/19 25 Discontinue d(Discontin ued by another clinician) ondansetron (ZOFRAN) 4 mg tablet Take 1 tablet (4 mg total) by mouth every 8 (eight) hours if needed for nausea or vomiting for up to 7 days. 20 tablet 5 06/30/19 25 Active Problems Problem Noted Date Diagnosed Date Vitamin D deficiency 04/12/2023 Hypothyroidism 05/20/2018 Abnormal Pap smear of cervix 02/11/2018 Chronic upper back pain 02/11/2018 Overview (01/20/2024): Large breasts Scoliosis 02/11/2018 Overview (01/20/2024): Bracing as child Mixed anxiety and depressive disorder 02/11/2018 Encounters Date Type Department Care Team Description 06/29/2024 Telephone Internal Medicine - [address] [phone] Negro Fraire MD Referral (Infertility, [facility]) 06/22/2024 4:00 PM EDT Office Visit Internal Medicine - [address] [phone] Negro Fraire MD Adult general medical examination (Primary Dx); Screening for deficiency anemia; Screening for hyperlipidemia; Screening for diabetes mellitus; Screening for thyroid disorder; STD exposure 05/22/2024 12:00 PM EST Office Visit Internal Medicine - [address] [phone] Nathan Sawyer NP Abdominal pain, unspecified abdominal location (Primary Dx) 05/22/2024 Telephone Internal Medicine - [address] [phone] Negro Fraire MD provider call back 05/21/2024 2:25 PM EST - 05/21/2024 8:11 PM EST Emergency [facility] Emergency [address] [place] [address] Epigastric pain (Primary Dx) Discharge Disposition: Home or Self Care from Last 3 Months Immunizations Name Administration Dates Next Due DTaP (Infanrix) 6wks to less than 7yo ,12/11/1993,1992,1992,03/01/1992 [id number] (Pentacel) 2mo to less than 5yo 12/21/1995,05/02/1993,06/21/1992,1991 HPV, Quadrivalent 08/27/2008,11/27/2007,03/27/20 06 Hepatitis B (Admcvay-Y-Dpmad , Recombivax HB-Adult) 19yo and older 04/14/2018 [...] BIOPSY W/ LOOP ELECTRODE EXCISION 01/2017 PROCEDURE: ID CONIZATION CERVIX W/WO D&C RPR ELTRD EXC; COMMENT: [facility] APPENDECTOMY 2003 PROCEDURE: HISTORICAL APPENDECTOMY Medical History [...] you may not have stable housing? No 06/18/2024 Food Access & Nutrition Answer Date Rec orded Do you have access to a vari ety of food including fruits and vegetables? Yes 06/18/2024 Health Literacy Answer Date Recorded How often do you need to hav e someone help you when you read instructions, pamphlets, or other written material from your doctor or pharmacy? Never 06/18/2024 Caregiver: How often do you need to have someone help you when you read instructions, pamphlets, or other written material from your doctor or pharmacy? Not on file 06/18/2024 Financial Risk Answer Date Recorded How hard is it for you to pa y for the very basics like food, housing, medical care, and air conditioning / heating? Not very hard 06/18/2024 Transportation Answer Date Recorded Has the lack of transportati on kept you from meetings, work, or from getting things needed for daily living? No Has the lack of transportati on kept you from medical appointments or from getting medications? No 06/18/2024 Social Isolation Answer Date Recorded How often do you feel lonely or isolated from th ose around you? Never 06/18/2024 Food Risk Answer Date Recorded Within the past 12 months we worried whether our food would run out before we got money to buy more. Never true 06/18/2024 Within the past 12 months th e food we bought just didn't last and we didn't have money to get more. Never true 06/18/2024 Dependent Care Answer Date Recorded Do you need help finding or paying for care for your loved ones. For example, child day care center worker or elderly care for an older adult? No 06/18/2024 Education Answer Date Recorded Do you think completing more education or training, like finishing a GED, going to college, or learning a trade, would be helpful for you? N/A 06/18/2024 Employment and Income Answer Date Recor ded During the last four weeks, have you been actively looking for work? No 06/18/2024 Living Situation Answer Date Recorded What is your living situation? 0 06/18/2024 Comments No Sex and Gender Information Value Date Recorded Sex Assigned at Female 03/14/2024 7:24 PM EST Legal Sex Female 4:51 AM EST Gender Identity Female 03/14/2024 7:24 PM EST Sexual Orientation Straight 03/02/2024 9: 19 AM EST Obstetrics History Last Filed Vital Signs Vital Sign Reading Time Taken Comments Blood Pressure 120/74 06/22/2024 4:20 PM EDT Pulse 82 06/22/2024 4:20 PM EDT Temperature 36.7 ??C (98.1 ??F) 05/21/2024 8:10 PM ES T Respiratory Rate 18 05/21/2024 8:10 PM EST Oxygen Saturation 100% 05/21/2024 8:10 PM EST Inhaled Oxygen Concentration - - Weight 105 kg (232 lb) 06/22/2024 4:20 PM EDT Height 167.6 cm (5' 6 ) 06/22/2024 4:20 PM EDT Body Mass Index 37.45 06/22/2024 4:20 PM EDT Plan of Treatment Upcoming Encounters Date Type Department Care Team (Late st Contact Info) Description 06/29/2025 4:00 PM EDT Office Visit Internal Medicine - [address] [phone] Negro Fraire MD [address] [place] [phone] Health Maintenance Due Date Last Done Comments Cervical Cancer Screening: Pap Smear 12/19/2012 COVID-19 Vaccine ( season) 2023 12/27/2020, 11/08/2020 Depression Screening 06/18/2025 06/18/2024, 10/02/19 Social Influencers of Health Screening 06/18/2025 06/18/2024 Cholesterol Screening (Lipid Panel) 06/22/2029 06/22/2024, 04/12/2023 DTaP,Tdap,and Td Vaccines (12 - Td [...] Completed 02/12/2024, , 02/11/2018, Additional history exists HIV Screening Completed 06/22/2024 Hepatitis C Screening Completed 06/22/2024 Hepatitis A Vaccines Aged Out No long er eligible based on patient's age to complete this topic Meningococcal ACWY Vaccine Aged Out N o longer eligible based on patient's age to complete this topic Meningococcal B Vaccine Aged Out No l onger eligible based on patient's age to complete this topic Pneumococcal Vaccine: Pediatrics (0 to 5 Years) and At-Risk Patients (6 to 64 Years) Aged Out No longer eligible based on patient's age to complete this topic RSV Immunization Patients Under 20 months Aged Out No longer eligible based on patient's age to complete this topic Procedures Procedure Name Priority Date/Time Associated Diagnosis Comments HEPATIC FUNCTION PANEL Routine 8:57 AM EDT Elevated total protein TRIIODOTHYRONINE FREE Routine 06/22/2024 4:57 PM EDT Screening for thyroid disorder FREE THYROXINE WITH REFLEX TO FREE TRIIODOTHYRONINE Routine 06/22/2024 4:57 PM EDT Screening for thyroid disorder HEPATITIS PANEL, ACUTE WITH REFLEX TO CONFIRMATION Routine 06/22/2024 4:57 PM EDT Screening for thyroid disorder Screening for hyperlipidemia Screening for diabetes mellitus Screening for deficiency anemia STD exposure HIV 1, 2 ANTIBODY, P24 ANTIGEN WITH REFLEX TO DIFFERENTIATION Routine 06/22/2024 4:57 PM EDT STD exposure TREPONEMA PALLIDUM ANTIBODY WITH REFLEX TO RPR AND PARTICLE AGGLUTINATION Routine 06/22/2024 4:57 PM EDT STD exposure COMPLETE BLOOD COUNT Routine 06/22/2024 4:57 PM EDT Screening for deficiency anemia COMPREHENSIVE METABOLIC PANEL Routine 06/22/2024 4:57 PM EDT Screening for diabetes mellitus LIPID PANEL WITH REFLEX TO DIRECT LDL Routine 06/22/2024 4:57 PM EDT Screening for hyperlipidemia THYROID STIMULATING HORMONE WITH REFLEX TO FREE T4 AND FREE T3 Routine 06/22/2024 4:57 PM EDT Screening for thyroid disorder HERPES SIMPLEX VIRUS 1 AND 2 PCR, QUALITATIVE Routine 06/22/2024 4:57 PM EDT Screening for thyroid disorder Screening for hyperlipidemia Screening for diabetes mellitus Screening for deficiency anemia STD exposure CHLAMYDIA TRACHOMATIS AND NEISSERIA GONORRHOEAE PCR Routine 06/22/2024 4:57 PM EDT Screening for thyroid disorder Screening for hyperlipidemia Screening for diabetes mellitus Screening for deficiency anemia STD exposure EXTERNAL XRAY REPORT 06/04/2024 EXTERNAL XRAY REPORT [...] AND DIFFERENTIAL STAT 05/21/2024 10:24 AM EST HM DEPRESSION SCREENING Routine 10/02/2023 from Last 3 Months or Most Recently Relevant to Health Maintenance Results * (ABNORMAL) Hepatic function panel (07/09/2024 8:57 AM EDT) Total Protein 7.7 6.0 - 8.0 g/dL LAB CHEMISTRY METHOD 07/09/2024 1:00 PM [facility] Albumin 3.5 3.2 - 5.0 g/dL LAB CHEMISTRY METHOD 07/09/2024 1:00 PM [facility] Total Bilirubin 0.3 0.0 - 1.4 mg/dL LAB CHEMISTRY METHOD 07/09/2024 1:00 PM [facility] Bilirubin, Direct 0.1 0.0 - 0.3 mg/dL LAB CHEMISTRY METHOD 07/09/2024 1:00 PM [facility] Bilirubin, Indirect 0.2 0.0 - 1.1 mg/dL LAB CHEMISTRY METHOD 07/09/2024 1:00 PM [facility] ALT (SGPT) 26 10 - 60 unit/L LAB CHEMISTRY METHOD 07/09/2024 1:00 PM [facility] AST (SGOT) 7(L) 10 - 42 unit/L LAB CHEMISTRY METHOD 07/09/2024 1:00 PM EDT [facility] Alkaline Phosphatase 61 42 - 121 unit/L LAB CHEMISTRY METHOD 07/09/2024 1:00 PM EDT [facility] Blood Venous blood specimen / Unknown Venipuncture / Unknown 07/09/2024 8:57 AM EDT 07/09/2024 8:57 AM EDT us Negro Fraire MD LAB BLOOD ORDERABLES Final Res ult Performing Organization Address [facility]/ZIP Co de Phone Number [facility] [address] [place] [address], [place] [phone] * HIV 1,2 antibody, p24 antigen with reflex to differentiation (06/22/2024 4:57 PM EDT) [facility] HIV Combo AB/AG Negative Negative LAB CHEMISTRY METHOD 06/22/2024 8:43 PM EDT [facility] Blood Venous blood specimen / Unknown Venipuncture / Unknown 06/22/2024 4:57 PM EDT 06/22/2024 5:01 PM EDT Narrative [facility] - 06/22/2024 8:43 PM EDT This assay is a 4th generation assay allowing for earlier detection of HIV infection by detecting the presence of the HIV-1 p24 antigen as well as the traditional antibodies to HIV type 1 (including group O) and type 2. ??Use of a 4th generation assay is the current CDC recommendation for HIV screening. us Negro Fraire MD LAB BLOOD ORDERABLES Final Res ult Performing Organization Address [facility]/ZIP Co de Phone Number [facility] [address] [place] [address], [place] [phone] * Treponema pallidum antibody with reflex to RPR and particle agglutination (06/22/2024 4:57 PM EDT) T. Pallidum Antibodies Negative Negative LAB CHEMISTRY METHOD 06/22/2024 8:14 PM EDT [facility] Blood Venous blood specimen / Unknown Venipuncture / Unknown 06/22/2024 4:57 PM EDT 06/22/2024 5:01 PM EDT us Negro Fraire MD LAB BLOOD ORDERABLES Final Res ult Performing Organization Address [facility]/ZIP Co de Phone Number [facility] [address] [place] [address], [place] [phone] * (ABNORMAL) Thyroid stimulating hormone with reflex to free t4 and free t3 (06/22/2024 4:57 PM EDT) [facility] TSH 4.05(H) 0.40 - 4.00 mcIU/mL LAB CHEMISTRY METHOD 06/22/2024 8:04 PM EDT [facility] Blood Venous blood specimen / Unknown Venipuncture / Unknown 06/22/2024 4:57 PM EDT 06/22/2024 5:01 PM EDT us Negro Fraire MD LAB BLOOD ORDERABLES Final Res ult Performing Organization Address [facility] Co de Phone Number [facility] [address] [place] [address], [place] [phone] * Free thyroxine with reflex to free triiodothyronine (06/22/2024 4:57 PM EDT) [facility] Free T4 1.10 0.70 - 1.80 ng/dL LAB CHEMISTRY METHOD 06/22/2024 9:19 PM EDT [facility] Blood Venous blood specimen / Unknown Venipuncture / Unknown 06/22/2024 4:57 PM EDT 06/22/2024 5:01 PM EDT us Negro Fraire MD LAB BLOOD ORDERABLES Final Res ult Performing Organization Address City/[facility]/ZIP Co de Phone Number [facility] [address] [place] [address], [place] [phone] * Lipid panel with reflex to direct LDL (06/22/2024 4:57 PM EDT) Cholesterol 163 0 - 200 mg/dL LAB CHEMISTRY METHOD 06/22/2024 7:02 PM EDT [facility] Triglycerides 97 0 - 150 mg/dL LAB CHEMISTRY METHOD 06/22/2024 7:02 PM EDT [facility] HDL 55 >=40 mg/dL LAB CHEMISTRY METHOD 06/22/2024 7:02 PM EDT [facility] LDL Calculated 89 0 - 100 mg/dL LAB CHEMISTRY METHOD 06/22/2024 7:02 PM EDT [facility] VLDL Cholesterol Sukhdev 19.4 mg/dL LAB CHEMISTRY METHOD 06/22/2024 7:02 PM EDT [facility] Non HDL Chol. (LDL+VLDL) 108 <145 mg/dL LAB CHEMISTRY METHOD 06/22/2024 7:02 PM EDT [facility] Chol/HDL Ratio 3.0 0.0 - 4.4 LAB CHEMISTRY METHOD 06/22/2024 7:02 PM EDT [facility] Blood Venous blood specimen / Unknown Venipuncture / Unknown 06/22/2024 4:57 PM EDT 06/22/2024 5:01 PM EDT us Negro Fraire MD LAB BLOOD ORDERABLES Final Res ult [facility] [address] [place] [address], [place] [phone] * Hepatitis panel, acute with reflex to confirmation (06/22/2024 4:57 PM EDT) Hepatitis B Surface Ag Negative Negative LAB CHEMISTRY METHOD 06/22/2024 10:00 PM EDT [facility] Hepatitis A Antibody IgM Negative Negative LAB CHEMISTRY METHOD 06/22/2024 10:00 PM EDT [facility] Hep B Core IgM Negative Negative LAB CHEMISTRY METHOD 06/22/2024 10:00 PM EDT [facility] Hepatitis C Antibody Negative Negative LAB CHEMISTRY METHOD 06/22/2024 10:00 PM EDT [facility] Blood Venous blood specimen / Unknown Venipuncture / Unknown 06/22/2024 4:57 PM EDT 06/22/2024 5:01 PM EDT us Negro Fraire MD LAB BLOOD ORDERABLES Final Res ult [facility] [address] [place] [address], * Herpes simplex virus 1 and 2 molecular study, qualitative (06/22/2024 4:57 PM EDT) Specimen Source Blood - Plasma 06/25/2024 11:21 AM EDT [facility] Herpes simplex Virus I Not detected Not detected 06/25/2024 11:21 AM EDT [facility] Herpes simplex Virus II Not detected Not detected 06/25/2024 11:21 AM EDT [facility] Comment: This test utilizes a real-time polymerase chain reaction procedure to amplify and detect portions of the herpes simplex virus glycoprotein G genes. ??The analytical sensitivity of this assay is 50 copies/mL. A Not detected result does not rule out infection. This test uses commercial reagents that have not been approved or cleared by the FDA. ??The FDA has determined that such clearance or approval is not necessary. ??The performance characteristics of this procedure were determined by [facility]. This test is performed pursuant to a license agreement with [employer] Test performed at [facility], [address] [place] ??[address] ? [phone] Cassy Solis MD, PhD - Traffic Line Painter Blood Venous blood specimen / Unknown Venipuncture / Unknown 06/22/2024 4:57 PM EDT 06/22/2024 5:01 PM EDT Negro Fraire MD LAB MICROBIOLOGY - GENERAL ORD ERABLES Final Result [facility] [address] [place] [address] * Chlamydia trachomatis and Neisseria gonorrhoeae molecular study (06/22/2024 4:57 PM EDT) Pathologist [facility] Neisseria gonorrhoeae PCR Negative Negative LAB MOLECULAR DIAGNOSTICS METHOD 06/23/2024 2:41 PM EDT [facility] Chlamydia trachomatis PCR Negative Negative LAB MOLECULAR DIAGNOSTICS METHOD 06/23/2024 2:41 PM EDT [facility] Swab Urine specimen from urethra / Unknown Non-blood Collection / Unknown 06/22/2024 4:57 PM EDT 06/22/2024 5:01 PM EDT Negro Fraire MD LAB MICROBIOLOGY - GENERAL ORD ERABLES Final Result Performing Organization Address City/[facility]/ZIP Co de Phone Number [facility] [address] [place] [address], [place] [phone] * (ABNORMAL) Complete blood count (06/22/2024 4:57 PM EDT) Pathologist [facility] WBC 8.9 4.8 - 10.8 K/mcL LAB HEMETOLOGY METHOD 06/22/2024 6:24 PM EDT [facility] RBC 4.80 3.80 - 4.80 M/mcL LAB HEMETOLOGY METHOD 06/22/2024 6:24 PM EDT [facility] Hemoglobin 12.2 11.5 - 16.0 g/dL LAB HEMETOLOGY METHOD 06/22/2024 6:24 PM EDT [facility] Hematocrit 38.9 35.0 - 47.0 % LAB HEMETOLOGY METHOD 06/22/2024 6:24 PM EDT [facility] MCV 81.9 79.0 - 98.0 FL LAB HEMETOLOGY METHOD 06/22/2024 6:24 PM EDT [facility] MCH 25.7(L) 27.0 - 32.0 pcg LAB HEMETOLOGY METHOD 06/22/2024 6:24 PM EDT [facility] MCHC 31.4(L) 32.0 - 37.0 g/dL LAB HEMETOLOGY METHOD 06/22/2024 6:24 PM EDT [facility] RDW 14.9 11.0 - 15.0 % LAB HEMETOLOGY METHOD 06/22/2024 6:24 PM EDT [facility] Platelets 399 130 - 400 K/mcL LAB HEMETOLOGY METHOD 06/22/2024 6:24 PM EDT [facility] MPV 9.6 7.0 - 11.0 FL LAB HEMETOLOGY METHOD 06/22/2024 6:24 PM EDT [facility] NRBC 0.0 <1.0 % LAB HEMETOLOGY METHOD 06/22/2024 6:24 PM EDT [facility] NRBC Absolute 0.00 <0.10 K/mcL LAB HEMETOLOGY METHOD 06/22/2024 6:24 PM EDT [facility] Blood Venous blood specimen / Unknown Venipuncture / Unknown 06/22/2024 4:57 PM EDT 06/22/2024 5:01 PM EDT us Negro Fraire MD LAB BLOOD ORDERABLES Final Res ult [facility] [address] [place] [address], * Triiodothyronine free (06/22/2024 4:57 PM EDT) T3, Free 245 230 - 420 pcg/dL LAB CHEMISTRY METHOD 06/22/2024 9:45 PM EDT [facility] Blood Venous blood specimen / Unknown Venipuncture / Unknown 06/22/2024 4:57 PM EDT 06/22/2024 5:01 PM EDT us Negro Fraire MD LAB BLOOD ORDERABLES Final Res ult [facility] [address] [place] [address], [place] [phone] * (ABNORMAL) Comprehensive metabolic panel (06/22/2024 4:57 PM EDT) Only the most recent of2 resultswithin the time period is included. Pathologist [facility] Sodium 138 133 - 145 mmol/L LAB CHEMISTRY METHOD 06/22/2024 7:02 PM [facility] Potassium 3.8 3.5 - 5.5 mmol/L LAB CHEMISTRY METHOD 06/22/2024 7:02 PM [facility] Chloride 104 96 - 110 mmol/L LAB CHEMISTRY METHOD 06/22/2024 7:02 PM [facility] CO2 29 21 - 32 mmol/L LAB CHEMISTRY METHOD 06/22/2024 7:02 PM [facility] Anion Gap 5 3 - 11 LAB CHEMISTRY METHOD 06/22/2024 7:02 PM [facility] Glucose 89 70 - 100 mg/dL LAB CHEMISTRY METHOD 06/22/2024 7:02 PM [facility] BUN 5 5 - 25 mg/dL LAB CHEMISTRY METHOD 06/22/2024 7:02 PM [facility] Creatinine 0.68 0.50 - 1.10 mg/dL LAB CHEMISTRY METHOD 06/22/2024 7:02 PM [facility] eGFR 119 >=60 mL/min/1. 73m2 LAB CHEMISTRY METHOD 06/22/2024 7:02 PM [facility] Comment:Calculation based on the??Chronic Kidney Disease Epidemiology Collaboration (CKD-EPI) equation refit??without adjustment for race. BUN/Creatinine Ratio 7.4 LAB CHEMISTRY METHOD 06/22/2024 7:02 PM [facility] Calcium 9.6 8.5 - 10.5 mg/dL LAB CHEMISTRY METHOD 06/22/2024 7:02 PM [facility] AST (SGOT) 16 10 - 42 unit/L LAB CHEMISTRY METHOD 06/22/2024 7:02 PM [facility] ALT (SGPT) 39 10 - 60 unit/L LAB CHEMISTRY METHOD 06/22/2024 7:02 PM [facility] Alkaline Phosphatase 66 42 - 121 unit/L LAB CHEMISTRY METHOD 06/22/2024 7:02 PM [facility] Total Protein 8.5(H) 6.0 - 8.0 g/dL LAB CHEMISTRY METHOD 06/22/2024 7:02 PM [facility] Albumin 3.9 3.2 - 5.0 g/dL LAB CHEMISTRY METHOD 06/22/2024 7:02 PM [facility] Total Bilirubin 0.3 0.0 - 1.4 mg/dL LAB CHEMISTRY METHOD 06/22/2024 7:02 PM [facility] Blood Venous blood specimen / Unknown Venipuncture / Unknown 06/22/2024 4:57 PM EDT 06/22/2024 5:01 PM EDT us Negro Fraire MD LAB BLOOD ORDERABLES Final Res ult [facility] [address] [place] [address], [place] [phone] * External Xray Report (06/04/2024) Only the [...] Signed Date: 05/21/2024 16:56 ET Workstation ID: [id number] Transcribed By: Self Edit Transcribed Date: 05/21/2024 16:55 ET Narrative 05/21/2024 4:56 PM EST Exam: US ABDOMEN LIMITED Date of Study: 05/21/2024 4:18 PM CLINICAL INFORMATION: Eval for gallbladder disease TECHNIQUE: Real-time ultrasound scanning of the region of interest performed by the medical nurse. Nurse Midwife static images and video clips are submitted [...] of the region of interestperformed by the medical nurse. Nurse Midwife static images and video clipsare submitted for review. FINDINGS: The IVC is unremarkable. The pancreas is obscured. The liver [id number] cm and is slightly echogenic suggesting fatty [...] Signed Date: 05/21/2024 16:56 ET Workstation ID: [id number] Transcribed By: Self Edit Transcribed Date: 05/21/2024 16:55 ET us Michael ARDON IMG US PROCEDURES Final Resul t * [place] urine culture tube (05/21/2024 10:24 AM EST) Extra Tube Hold for add-ons. 05/21/2024 3:01 PM EST [facility] Comment:Auto resulted. Urine Urine specimen obtained by clean catch procedure / Unknown 05/21/2024 10:24 AM EST 05/21/2024 1:54 PM EST us Negro Fraire MD LAB URINE ORDERABLES Final Res ult [facility] [address] [place] [address], [place] [phone] * [place] top urine tube (05/21/2024 10:24 AM EST) Extra Tube Hold for add-ons. 05/21/2024 3:01 PM [facility] Comment:Auto resulted. Urine Urine specimen obtained by clean catch procedure / Unknown 05/21/2024 10:24 AM EST 05/21/2024 1:54 PM EST us Negro Fraire MD LAB URINE ORDERABLES Final Res ult [facility] [address] [place] [address], * (ABNORMAL) CBC auto differential (05/21/2024 10:24 AM EST) WBC 8.6 4.8 - 10.8 K/mcL LAB HEMETOLOGY METHOD 05/21/2024 10:55 AM [facility] RBC 4.80 3.80 - 4.80 M/mcL LAB HEMETOLOGY METHOD 05/21/2024 10:55 AM [facility] Hemoglobin 12.2 11.5 - 16.0 g/dL LAB HEMETOLOGY METHOD 05/21/2024 10:55 AM [facility] Hematocrit 39.5 35.0 - 47.0 % LAB HEMETOLOGY METHOD 05/21/2024 10:55 AM [facility] MCV 83.2 79.0 - 98.0 FL LAB HEMETOLOGY METHOD 05/21/2024 10:55 AM [facility] MCH 25.7(L) 27.0 - 32.0 pcg LAB HEMETOLOGY METHOD 05/21/2024 10:55 AM [facility] MCHC 30.9(L) 32.0 - 37.0 g/dL LAB HEMETOLOGY METHOD 05/21/2024 10:55 AM [facility] RDW 14.8 11.0 - 15.0 % LAB HEMETOLOGY METHOD 05/21/2024 10:55 AM [facility] Platelets 380 130 - 400 K/mcL LAB HEMETOLOGY METHOD 05/21/2024 10:55 AM [facility] [facility] LAB MPV 9.3 7.0 - 11.0 [place] LAB HEMETOLOGY METHOD 05/21/2024 10:55 AM [facility] NRBC 0.0 <1.0 % LAB HEMETOLOGY METHOD 05/21/2024 10:55 AM [facility] NRBC Absolute 0.00 <0.10 K/mcL LAB HEMETOLOGY METHOD 05/21/2024 10:55 AM [facility] Neutrophils Relative 74.1 % LAB HEMETOLOGY METHOD 05/21/2024 10:55 AM [facility] Lymphocytes Relative 17.1 % LAB HEMETOLOGY METHOD 05/21/2024 10:55 AM [facility] Monocytes Relative 5.6 % LAB HEMETOLOGY METHOD 05/21/2024 10:55 AM [facility] Eosinophils Relative 2.2 % LAB HEMETOLOGY METHOD 05/21/2024 10:55 AM [facility] Basophils Relative 0.5 % LAB HEMETOLOGY METHOD 05/21/2024 10:55 AM [facility] Immature Granulocytes Relative 0.5 % LAB HEMETOLOGY METHOD 05/21/2024 10:55 AM [facility] Neutrophils Absolute 6.40 1.50 - 7.00 K/mcL LAB HEMETOLOGY METHOD 05/21/2024 10:55 AM [facility] Lymphocytes Absolute 1.48 1.00 - 5.00 K/mcL LAB HEMETOLOGY METHOD 05/21/2024 10:55 AM [facility] Monocytes Absolute 0.48 0.20 - 1.00 K/mcL LAB HEMETOLOGY METHOD 05/21/2024 10:55 AM [facility] Eosinophils Absolute 0.19 0.00 - 0.50 K/[facility] LAB HEMETOLOGY METHOD 05/21/2024 10:55 AM EST [facility] Basophils Absolute 0.04 0.00 - 0.20 K/[facility] LAB HEMETOLOGY METHOD 05/21/2024 10:55 AM EST [facility] Immature Granulocytes Absolute 0.04(H) 0.00 - 0.03 K/[facility] LAB HEMETOLOGY METHOD 05/21/2024 10:55 AM EST [facility] Blood Venous blood specimen / Unknown Venipuncture / Unknown 05/21/2024 10:24 AM EST 05/21/2024 10:45 AM EST Fannie ARDON LAB BLOOD ORDERABLES Final Re sult Performing Organization Address [facility]/ZIP Co de Phone Number [facility] [address] [place] [address], [place] [phone] * Lipase (05/21/2024 10:24 AM EST) Lipase 45 13 - 75 unit/L LAB CHEMISTRY METHOD 05/21/2024 11:20 AM EST [facility] Blood Venous blood specimen / Unknown Venipuncture / Unknown 05/21/2024 10:24 AM EST 05/21/2024 10:45 AM EST Fannie ARDON LAB BLOOD ORDERABLES Final Re sult [facility] [address] [place] [address], [place] [phone] * Hm Depression Screening (10/02/2023) HM Depression Screening abstracted Historical Provider HEALTH MAINTENANCE Final Result from Last 3 Months or Most Recently Relevant to Health Maintenance [place] [address] [place] [address] [employer] [facility] Care Teams Live Truck Technician Relationship Specialty Start Date End Date Negro Fraire MD [address] [place] [id number] PCP - General Internal Medicine 01/24/24
== END 2024-07-09 18:26 | disposition home or self-care (01) ==
LOC: HO.MRI 18:25
PROVIDERS: PCP Internal Medicine; Visit Provider Internal Medicine
DX: M25.562 Pain in left knee (principal)
CPT/HCPCS: 72148

== ENCOUNTER → 2024-07-09 18:50 | Outpatient (BNV) | payer OTHER, SELFPAY | PROVIDERS: PCP Internal Medicine; Visit Provider Radiology Diagnostic Radiology | DX: M41.86 Other forms of scoliosis, lumbar region (principal); M99.63 Osseous and subluxation stenosis of intervertebral foramina of lumbar region | CPT/HCPCS: 72148 ==

== ENCOUNTER → 2024-08-07 11:07 | Outpatient (BNVA) | payer OTHER, SELFPAY | PROVIDERS: PCP Internal Medicine; Visit Provider Internal Medicine | DX: Z13.89 Encounter for screening for other disorder (principal) | CPT/HCPCS: 99213 ==

== ENCOUNTER → 2024-08-26 10:37 | Outpatient (BNVA) | payer OTHER, SELFPAY | PROVIDERS: PCP Internal Medicine; Visit Provider Internal Medicine | DX: Z13.89 Encounter for screening for other disorder (principal) | CPT/HCPCS: 99213 ==

== ENCOUNTER 2024-09-01 10:04 | Outpatient (RCR) | payer OTHER, SELFPAY ==
--- NOTE | 2024-09-28 09:28 | MHC.PT.DC ---
[facility] [place] Office [place] Office [place] Office [address] Jame [place] 140 [facility] [phone] F: [phone] F: [phone] F: [phone] F: [phone] Physical Therapy Discharge Report Diagnosis: LEFT KNEE AND LOW BACK PAIN 03/23/24 () Date of Surgery: Date of Evaluation: 08/21/24 Date of Discharge: 09/11/24 Treatments to Date: 3 Cancellations to Date: 1 No Shows to Date: 3 Discharge Status: Visit Non-compliance Discharge Summary: 09/28 ADDENDUM: Pt WAS GRANTED A CHANCE FOR RE-EVALUATION ON THIS DATE TO RESUME THERAPY HOWEVER, SHE NO SHOWED FOR THIS VISIT WELL, AND WILL BE D/Yusuf ON THIS DATE FOR NON-COMPLIANCE. SINCE INITIAL EVAL POST INJURY SHE HAS NO SHOWED A TOTAL OF 6 VISITS. 09/11/24: Cancelled and No showed for 3 visits and will be DCed for non-compliance. Of note, she was previously evaluated and also DCed for non-compliance after initial injury. Electronically signed by: Laura Miller PT DPT Please sign and return to therapist. Thank you for your referral.
== END 2025-03-05 11:13 | disposition home or self-care (01) ==
LOC: HO.PT 10:04
PROVIDERS: PCP Internal Medicine; Visit Provider Internal Medicine
DX: M51.27 Other intervertebral disc displacement, lumbosacral region (principal); R20.2 Paresthesia of skin; M25.569 Pain in unspecified knee
CPT/HCPCS: 97110; 97161

== ENCOUNTER 2024-09-07 10:24 | Outpatient (AMB) | payer OTHER, SELFPAY ==
[2024-09-07 10:31] VITALS: BP 121/75; PULSE 70; O2SAT 100; BMI 37.3
--- NOTE | 2024-09-07 10:31 | A.OFFVIS_ITS ---
Vital Signs 09/07/24 10:31 Height 5 ft 6 in Weight 231 lb BMI 37.3 BP 121/75 Blood Pressure Location Lt brachial Position Sitting Pulse 70 Pulse Source Pulse Oximeter Pulse Oximetry (%) 100 Oxygen Delivery Method Room Air Intake Visit Reasons: WC Lt knee contusion-DOI 03/23/24 Assistant Community Director Required: No Allergies No Known Allergies Allergy (Verified 09/07/24 10:32) HPI Comments Details: The patient is a 33-year-old female presenting with the evaluation of chronic left knee pain due to a fall on ice resulting in a Workers' compensation injury. The incident occurred on March 24 of the previous year, leading to persistent pain and associated leg numbness. Lumbar MRI findings include mild to moderate levoscoliosis and a small left paramedian/foraminal disc protrusion with annular tear at L5-S1 causing left neural foraminal stenosis. Left knee MRI findings are compatible with strain versus low-grade partial tear of the semimembranosus. A cortisone injection throught [facility] provided temporary relief, and physical therapy was restarted with minimal improvements so far. The pain, exacerbated by cold weather and stair activity, is partially managed with ibuprofen and Lidocaine patches while continuous physical therapy and modified work duties continues. - Onset and Timing: Pain commenced post-fall in March,. - Quality and Character: Pain described as constant, throbbing, pounding, sharp, stabbing, burning, and tingling. - Pain is rated 7-8/10 during mornings, and 2-3/10 during afternoon when taken medications - Primary Location: Left knee, with some associated numbness in left thigh and leg. - Exacerbating/Relieving Factors: Worsens with cold weather, stairs, and randomly more than usual times; relieved somewhat by ibuprofen, Lidocaine patches, and warmth. - Interference: Interferes with daily activities, particularly in the morning, when ascending stairs, and if exposed to cold environments. - Affect: Pain adversely affects daily activities and psychological well-being due to constant management and interference with routine tasks. - Analgesia: Ibuprofen 800 mg three times daily and Lidocaine patches are used for pain management. - Adverse Effects: None reported from medications. - Activities of Daily Living: Significant impact observed; activities involving stairs and cold environments are challenging. - Aberrant Drug Related Behaviors: None reported; pain managed strictly as prescribed. 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 Review of Systems Const Details: - Musculoskeletal: Reports chronic knee pain, exacerbated by weather. - Neurological: Reports leg numbness, especially with activity. Denies bladder or bowel dysfunction, weakness, foot drop, or saddle anesthesia. All systems reviewed & are unremarkable except as noted in HPI and below Physical Exam Vital Signs: Last Vital Signs Pulse 70 09/07/24 10:31 BP 121/75 09/07/24 10:31 Pulse Ox 100 09/07/24 10:31 Oxygen Delivery Method Room Air 09/07/24 10:31 BMI result Body Mass Index 37.3 General: Appears afebrile. Alert and oriented. Mood and affect appropriate. Follows and participates in conversation appropriately. Respiratory effort is unlabored. No cough. Able to transition from sit to stand unassisted. Ambulates with bilaterally normal heel strike and toe off. General: Yes no CVA tenderness Back/Spine/Pelvis Back: no CVA tenderness Cervical Spine: cervical ROM normal, cervical muscular tenderness and No Cervical spine tenderness Thoracic/Lumbar Spine: thoracic and lumbar spine normal to inspection, No Thoracic/lumbar spine scar(s), thoraco-lumbar ROM normal, Lasegue's sign negative, straight leg raise negative bilaterally, paraspinal muscle tenderness, No thoracic spinal tenderness and No lumbar spinal tenderness Extrem General: Yes capillary refill normal, Yes no clubbing, cyanosis or edema and Yes no calf tenderness Left lower extremity: knee (Limited ROM due to pain.) Details: normal to inspection and tenderness Location: of the lateral joint line and of the infrapatellar area; no swelling, no ecchymosis, no crepitus and no unusual warmth Results Reviewed Results Reviewed: MRI LEFT KNEE WITHOUT CONTRAST 05/28/24 HISTORY: DERANGEMENT, CONTUSION COMPARISON: Correlation is made with plain films of the left knee dated 03/23/2024. TECHNIQUE: Coronal T1 and fat-suppressed proton density, sagittal proton density and fat-suppressed proton density, and axial fat suppressed T2 weighted MR images of the left knee were obtained. FINDINGS: Bone marrow: Bone marrow signal intensity is normal. Joint effusion: There is no significant joint effusion. Cassidy's cyst: There is no Cassidy's cyst. Articular cartilage: Intact Muscles/soft tissues: There is faint increased signal intensity at the musculotendinous junction of the semimembranosus muscle and surrounding the tendon, compatible with muscle strain versus low-grade partial tear. The popliteus and gastrocnemius tendons are intact. Anterior cruciate ligament: Intact Posterior cruciate ligament: Intact Medial collateral ligament: Intact Lateral collateral ligament: Intact Medial meniscus: Intact Lateral meniscus: Intact Quadriceps tendon: Intact Patellar tendon: Intact Patellar retinacula: Intact IMPRESSION: Findings compatible with strain versus low-grade partial tear of the semimembranosus. Otherwise unremarkable MRI of the left knee. MR LUMBAR SPINE WITHOUT IV CONTRAST 07/09/24 History: PAIN LT KNEE/LEG NUMBNESS LT THIGH Technique: Sagittal T1, T2 and STIR, and axial T1 and T2 weighted images of the lumbar spine were obtained per departmental protocol. Comparison: Correlation is made with plain films of the lumbar spine dated 06/04/2024. Findings: There is mild to moderate levoscoliosis. The vertebral bodies maintain normal height and marrow signal intensity. The intervertebral discs maintain normal height and hydration. At T12-L1,there is no evidence of disc herniation, central spinal stenosis, or neural foraminal narrowing. At L1-2, there is a minimal disc bulge without central spinal stenosis or neural foraminal narrowing. At L2-3, there is no evidence of disc herniation, central spinal stenosis, or neural foraminal narrowing. At L3-4, there is no evidence of disc herniation, central spinal stenosis, or neural foraminal narrowing. At L4-5, there is no evidence of disc herniation, central spinal stenosis, or neural foraminal narrowing. At L5-S1, there is a small left paramedian/foraminal disc protrusion with annular tear. This causes left neural foraminal stenosis. There is no central spinal or right neural foraminal stenosis. The conus terminates at the T12-L1 level and demonstrates normal signal intensity. The visualized paraspinal soft tissues are unremarkable. Impression: 1. Mild to moderate levoscoliosis. 2. Small left paramedian/foraminal disc protrusion with annular tear at L5-S1 causing left neural foraminal stenosis. Assessment & Plan Assessment & Plan (1) Patellofemoral syndrome of left knee: Code(s): M22.2X2 - Patellofemoral disorders, left knee Category: Medical (2) Chronic pain of left knee: Code(s): M25.562 - Pain in left knee; G89.29 - Other chronic pain Category: Medical (3) Work related injury: Code(s): Y99.0 - Civilian activity done for income or pay Category: Medical Plan Patient will continue physical therapy sessions and explore long-term pain management strategies such as genicular nerve blocks for radiofrequency ablation (RFA) or saphenous nerve block coupled with nerve stimulation therapy for a longer term pain relief. Temporary relief with cortisone suggests the need for durable solutions, and with the patient expressing interest, alternative non- invasive therapies will be considered. Persistent engagement in therapy will facilitate functionality improvements with observation and potential adjustments to therapeutic regimes as necessary. Schedule Left Diagnostic Saphenous Nerve Block with local and US guidance for potential Sprint PNS trial. Expectations, risks and benefits were reviewed. Patient is aware she will be contacted to schedule this procedure. All questions and concerns have been answered and patient agreed with the plan. Follow up after injection and sooner as needed. Patient was informed and verbally consented to the use of an ambient scribe for clinic note documentation during this visit. Patient Instructions: I discussed possible management options for chronic left knee pain, emphasizing the long-lasting benefits of alternatives like genicular radiofrequency ablation or nerve stimulation therapy. Risks and benefits of discussed procedures were discussed with patient in greater detail. Patient expressed the intent to proceed with nerve stimulation therapy for extended relief relative to cortisone injections and have genicular RFA as back up option, understanding its non- surgical nature and minimal risks. Follow-ups for insurance approval and scheduling of diagnostic nerve block injections were communicated, and anticipatory guidance for expected outcomes was provided. - Continue attending physical therapy sessions as advised. - Use prescribed medications like Ibuprofen and Lidocaine patches for pain as directed. - Maintain awareness of pain responses and report any significant changes. - Consider long-term non-invasive pain management therapies discussed, such as nerve stimulation vs RFA. - Return if pain significantly worsens or if there are any new symptoms. Coding Level of Care Code New Pt Level 4 (20357) Diagnoses Patellofemoral syndrome of left knee M22.2X2 Chronic pain of left knee M25.562; G89.29 Work related injury Y99.0
--- OUTSIDE RECORDS SUMMARY | 2024-09-07 11:37 | XMS_ITS | Clinical Summary ---
Author Organization [facility] [address] [facility] Address [address] [place] [address] Phone Care Team Providers Care Director Of Mechanical Engineering Name Role Phone Negro Fraire MD Primary Care Provider [phone] Allergies No known active allergies Medications levothyroxine (SYNTHROID, LEVOTHROID) 50 mcg tablet Take 1 tablet (50 mcg total) by mouth 1 (one) time each day. 90 each 1 04/14/2024 Active Active Problems Problem Noted Date Diagnosed Date Class 2 obesity due to exces s calories with body mass index (BMI) of 38.0 to 38.9 in adult 08/21/2024 Vitamin D deficiency 04/12/2023 Hypothyroidism 05/20/2018 Abnormal Pap smear of cervix 02/11/2018 Chronic upper back pain 02/11/2018 Overview (01/20/2024): Large breasts Scoliosis 02/11/2018 Overview (01/20/2024): Bracing as child Mixed anxiety and depressive disorder 02/11/2018 Encounters Date Type Department Care Team Description 08/18/2024 4:00 PM EDT Office Visit Bariatric Surgery - [address] [place] [address] Karla Plasencia PA Class 2 obesity due to excess calories with body mass index (BMI) of 38.0 to 38.9 in adult, unspecified whether serious comorbidity present (Primary Dx) 08/10/2024 7:35 AM EDT - 08/10/2024 11:54 AM EDT Emergency [facility] Emergency [address] [place] [address] Negro Turner MD Epigastric pain (Primary Dx) Discharge Disposition: Home or Self Care 06/29/2024 Telephone Internal Medicine - [address] [phone] Negro Fraire MD Referral (Infertility, [place] [facility]) 06/22/2024 4:00 PM EDT Office Visit Internal Medicine - [address] [phone] Negro Fraire MD Adult general medical examination (Primary Dx); Screening for deficiency anemia; Screening for hyperlipidemia; Screening for diabetes mellitus; Screening for thyroid disorder; STD exposure from Last 3 Months Immunizations Name Administration Dates Next Due DTaP (Infanrix) 6wks to less than 7yo ,12/11/1993,1992,1992,03/01/1992 [id number] (Pentacel) 2mo to less than 5yo 12/21/1995,05/02/1993,06/21/1992,1991 HPV, Quadrivalent 08/27/2008,11/27/2007,03/27/20 06 Hepatitis B (Qixsvrn-G-[id number] , Recombivax HB-Adult) 19yo and older 04/14/2018 [...] BIOPSY W/ LOOP ELECTRODE EXCISION 01/2017 PROCEDURE: [place] CONIZATION CERVIX W/WO D&C RPR ELTRD EXC; [...] your loved ones. For example, child welfare specialist or elderly care for an older adult? [...] 03/02/2024 9: 19 AM EST Obstetrics History Para Term AB IAB SAB Ectopic Multiple Livin g Live Births 0 0 0 0 0 0 0 0 0 0 0 Last Filed Vital Signs Vital Sign Reading Time Taken Comments Blood Pressure 112/73 08/18/2024 3:46 PM EDT Pulse 84 08/18/2024 3:46 PM EDT Temperature 36.5 ??C (97.7 ??F) 08/10/2024 11:26 AM E DT Respiratory Rate 19 08/10/2024 11:26 AM EDT Oxygen Saturation 100% 08/10/2024 11:26 AM EDT Inhaled Oxygen Concentration - - Weight 108 kg (237 lb) 08/18/2024 3:46 PM EDT Height 167.6 cm (5' 6 ) 08/10/2024 2:45 AM EDT Body Mass Index 38.25 08/10/2024 2:45 AM EDT Plan of Treatment Upcoming Encounters Date Type Department Care Team (Late st Contact Info) Description 12/09/2024 4:00 PM EDT Office Visit Bariatric Surgery - [place] [address] [address] Karla Plasencia PA [address] [address] 06/29/2025 4:00 PM EDT Office Visit Internal Medicine - [address] [phone] Negro Fraire MD [address] [place] [id number] Health Maintenance Due Date Last Done Comments [...] Procedure Name Priority Date/Time Associated Diagnosis Comments ECG ANNOTATED 08/11/2024 US ABDOMEN LIMITED STAT 08/10/2024 10 :16 AM EDT US OB LESS 14 WKS SINGLE OR FIRST GESTATION STAT 08/10/2024 10:16 AM EDT TROPONIN I HIGH SENSITIVITY STAT 08/10/2024 4:22 AM EDT POC , URINE DIAGNOSTIC STAT 08/10/2024 4:21 AM EDT ECG 12-LEAD STAT 08/10/2024 4:19 AM EDT CBC WITH AUTO DIFFERENTIAL STAT 08/10/2024 2:46 AM EDT B-TYPE NATRIURETIC PEPTIDE STAT 08/10/2024 2:46 AM EDT MAGNESIUM STAT 08/10/2024 2:46 AM EDT LIPASE STAT 08/10/2024 2:46 AM EDT COMPREHENSIVE METABOLIC PANEL STAT 08/10/2024 2:46 AM EDT CBC AND DIFFERENTIAL STAT 08/10/2024 2:46 AM EDT TROPONIN I HIGH SENSITIVITY STAT 08/10/2024 2:46 AM EDT ECG 12-LEAD STAT 08/10/2024 2:42 AM EDT EXTERNAL MRI REPORT 07/10/2024 HEPATIC FUNCTION PANEL Routine 8:57 AM EDT [...] mellitus Screening for deficiency anemia STD exposure HM DEPRESSION SCREENING Routine 10/02/2023 from Last 3 Months or Most Recently Relevant to Health Maintenance Results * ECG-Annotated (08/11/2024) us Provider Onbase MD ECG ORDERABLES Final Result * US Abdomen Limited (08/10/2024 10:16 AM EDT) Anatomical Region Laterality Modality Body Ultrasound 08/10/2024 10:3 5 AM EDT Impressions 08/10/2024 10:37 AM EDT 1. ??Echogenic liver parenchyma suggestive of steatosis. 2. ??Gallbladder is contracted, limiting evaluation. ??No appreciable pericholecystic or wall thickening. ??Negative sonographic Mera sign. -------- FINAL REPORT -------- Dictated By: Rodolfo Arreola Dictated Date: 08/10/2024 10:35 ET Assigned Physician: Rodolfo Arreola Reviewed and Electronically Signed By: Rodolfo Arreola Signed Date: 08/10/2024 10:37 ET Workstation ID: [id number] Transcribed By: Self Edit Transcribed Date: 08/10/2024 10:35 ET Narrative 08/10/2024 10:37 AM EDT PROCEDURE: Right upper quadrant ultrasound. HISTORY: pain ruq pain suspect biliary colic/noble. COMPARISON: 05/21/2024. TECHNIQUE: Grayscale, color Doppler, and spectral Doppler ultrasound evaluation of the right upper quadrant of the abdomen. FINDINGS: LIVER: Echogenic parenchyma. ??No focal lesion. ??Normal flow in the main portal vein. BILIARY: Contracted gallbladder, difficult to evaluate as a result. ??Normal caliber biliary tree. ??Negative sonographic Mera sign. PANCREAS: Visualized portions are normal. RIGHT KIDNEY: Normal size and echotexture. ??No hydronephrosis or focal lesion. Procedure Note Rodolfo Arreola MD - 08/10/2024 PROCEDURE: Right upper quadrant ultrasound. HISTORY: pain ruq pain suspect biliary colic/noble. COMPARISON: 05/21/2024. TECHNIQUE: Grayscale, color Doppler, and spectral Doppler ultrasoundevaluation of the right upper quadrant of the abdomen. FINDINGS: LIVER: Echogenic parenchyma. No focal lesion. Normal flow in the mainportal vein. BILIARY: Contracted gallbladder, difficult to evaluate as a result.Normal caliber biliary tree. Negative sonographic Mera sign. PANCREAS: Visualized portions are normal. RIGHT KIDNEY: Normal size and echotexture. No hydronephrosis or focallesion. IMPRESSION: 1. Echogenic liver parenchyma suggestive of steatosis. 2. Gallbladder is contracted, limiting evaluation. No appreciablepericholecystic or wall thickening. Negative sonographic Mera sign. -------- FINAL REPORT -------- Dictated By: Rodolfo Arreola Dictated Date: 08/10/2024 10:35 ET Assigned Physician: Rodolfo Arreola Reviewed and Electronically Signed By: Rodolfo Arreola Signed Date: 08/10/2024 10:37 ET Workstation ID: [id number] Transcribed By: Self Edit Transcribed Date: 08/10/2024 10:35 ET us Negro Turner MD IMMaximo US PROCEDURES Final Result * US OB Less 14 Wks Single or First Gestation (08/10/2024 10:16 AM EDT) Anatomical Region Laterality Modality Body Ultrasound 08/10/2024 10:4 9 AM EDT Impressions 08/10/2024 10:53 AM EDT Impression: 1. Single live intrauterine gestation, with estimated sonographic age of 8 weeks (CHRISTIAN 03/22/25). 2. No adnexal masses. Telerad REVA ([id number]) -------- FINAL REPORT -------- Dictated By: Sasha Shaikh Dictated Date: 08/10/2024 10:49 ET Assigned Physician: Sasha Shaikh Reviewed and Electronically Signed By: Sasha Shaikh Signed Date: 08/10/2024 10:53 ET Workstation ID: [id number] Transcribed By: Self Edit Transcribed Date: 08/10/2024 10:49 ET Narrative 08/10/2024 10:53 AM EDT History: 33-year-old 3 para 2, LMP 06/16/24 (menstrual age 7 weeks 6 days) with pelvic pain. Findings: Transvesical imaging of the pelvis is supplemented with transvaginal imaging for better detail of the intrauterine contents and adnexa. The uterus measures 11.7 cm in length by 7.7 cm in depth by 8.3 cm in width. An intrauterine gestational sac is demonstrated, containing a yolk sac and pole. Regular cardiac activity is present, at 166 bpm. The crown-rump length corresponds to a gestational age of 8 weeks, +/- 5 days (CHRISTIAN 03/22/25). No perigestational hemorrhage is seen. A nabothian cyst is noted in the cervix. There is no free fluid in the cul-de-sac. The left ovary measures 3.5 x 1.5 x 3.0 cm and the right ovary measures 3.3 x 1.3 x 2.2 cm. Normal vascular flow is demonstrated within the ovaries with Doppler. No adnexal masses are seen. Procedure Note Sasha Shaikh MD - 08/10/2024 History: 33-year-old 3 para 2, LMP 06/16/24 (menstrual age 7 weeks6 days) with pelvic pain. Findings: Transvesical imaging of the pelvis is supplemented with transvaginalimaging for better detail of the intrauterine contents and adnexa. The uterus measures 11.7 cm in length by 7.7 cm in depth by 8.3 cm inwidth. An intrauterine gestational sac is demonstrated, containing a yolksac and pole. Regular cardiac activity is present, at 166 bpm.The crown-rump length corresponds to a gestational age of 8 weeks,+/- 5 days (CHRISTIAN 03/22/25). No perigestational hemorrhage is seen. A nabothian cyst is noted in the cervix. There is no free fluid in the cul-de-sac. The left ovary measures 3.5 x 1.5 x 3.0 cm and the right ovary measures3.3 x 1.3 x 2.2 cm. Normal vascular flow is demonstrated within theovaries with Doppler. No adnexal masses are seen. IMPRESSION: Impression: 1. Single live intrauterine gestation, with estimated sonographic age of 8weeks (CHRISTIAN 03/22/25). 2. No adnexal masses. Telerad NC ([id number]) -------- FINAL REPORT -------- Dictated By: Sasha Shaikh Dictated Date: 08/10/2024 10:49 ET Assigned Physician: Sasha Shaikh Reviewed and Electronically Signed By: Sasha Shaikh Signed Date: 08/10/2024 10:53 ET Workstation ID: [id number] Transcribed By: Self Edit Transcribed Date: 08/10/2024 10:49 ET us Negro Turner MD IMG OB US PROCEDURES Final Resu lt * Troponin I high sensitivity (08/10/2024 4:22 AM EDT) Only the most recent of2 resultswithin the time period is included. High Sensitivity Troponin I <3 <=54 ng/L LAB CHEMISTRY METHOD 08/10/2024 6:18 AM EDT [facility] Blood Venous blood specimen / Unknown Venipuncture / Unknown 08/10/2024 4:22 AM EDT 08/10/2024 5:51 AM EDT Narrative [facility] - 08/10/2024 6:18 AM EDT High levels of biotin in samples may falsely decrease hsTroponin values. ??Use caution when interpreting hsTroponin results in patients taking biotin who exhibit renal impairment (eGFR <60) or in patients taking more than 20 mg/day of biotin. us Negro Turner MD LAB BLOOD ORDERABLES Final Resu lt Performing Organization Address City/[facility]/ZIP Co de Phone Number [facility] [address] [place] [address], [place] [phone] * (ABNORMAL) POC , urine manually resulted (08/10/2024 4:21 AM EDT) HCG, Ur POC Positive(A ) Negative POC hCG Int QC Pass? Yes Yes Urine Urine specimen obtained by clean catch procedure / Unknown 08/10/2024 4:21 AM EDT us Negro Turner MD POINT OF CARE TEST ENTER/EDIT O RDERABLES Final Result * ECG 12 lead (08/10/2024 4:19 AM EDT) Only the most recent of2 resultswithin the time period is included. Ventricular Rate ECG 71 BPM GEMUSE Atrial Rate 71 BPM GEMUSE P-R Interval 156 ms GEMUSE QRS Duration 72 ms GEMUSE Q-T Interval 390 ms GEMUSE QTc 423 ms GEMUSE P Wave [place] 39 degrees GEMUSE R [place] 25 degrees GEMUSE T [place] 14 degrees GEMUSE ECG Interpretation Normal sinus rhythm Normal ECG When compared with ECG of 10-AUG-2024 02:42, (unconfirmed) No significant change was found Confirmed by Bin BAUER JOHN ([id number]) on 08/10/2024 7:30:22 PM GEMUSE 08/10/2024 4:19 AM EDT 08/10/2024 7:30 PM EDT us Negro Turner MD ECG ORDERABLES Final Result Performing Organization Address City/[facility]/ZIP Co de Phone Number GEMUSE * (ABNORMAL) CBC auto differential (08/10/2024 2:46 AM EDT) [facility] WBC 9.7 4.8 - 10.8 K/mcL LAB HEMETOLOGY METHOD 08/10/2024 3:23 AM [facility] RBC 4.00 3.80 - 4.80 M/mcL LAB HEMETOLOGY METHOD 08/10/2024 3:23 AM [facility] Hemoglobin 10.4(L) 11.5 - 16.0 g/dL LAB HEMETOLOGY METHOD 08/10/2024 3:23 AM [facility] Hematocrit 32.2(L) 35.0 - 47.0 % LAB HEMETOLOGY METHOD 08/10/2024 3:23 AM [facility] MCV 79.7 79.0 - 98.0 FL LAB HEMETOLOGY METHOD 08/10/2024 3:23 AM [facility] MCH 25.7(L) 27.0 - 32.0 pcg LAB HEMETOLOGY METHOD 08/10/2024 3:23 AM [facility] MCHC 32.3 32.0 - 37.0 g/dL LAB HEMETOLOGY METHOD 08/10/2024 3:23 AM [facility] RDW 16.1(H) 11.0 - 15.0 % LAB HEMETOLOGY METHOD 08/10/2024 3:23 AM [facility] Platelets 299 130 - 400 K/mcL LAB HEMETOLOGY METHOD 08/10/2024 3:23 AM [facility] MPV 9.4 7.0 - 11.0 FL LAB HEMETOLOGY METHOD 08/10/2024 3:23 AM [facility] NRBC 0.0 <1.0 % LAB HEMETOLOGY METHOD 08/10/2024 3:23 AM [facility] NRBC Absolute 0.00 <0.10 K/mcL LAB HEMETOLOGY METHOD 08/10/2024 3:23 AM [facility] Neutrophils Relative 77.6 % LAB HEMETOLOGY METHOD 08/10/2024 3:23 AM [facility] Lymphocytes Relative 11.9 % LAB HEMETOLOGY METHOD 08/10/2024 3:23 AM [facility] Monocytes Relative 7.7 % LAB HEMETOLOGY METHOD 08/10/2024 3:23 AM [facility] Eosinophils Relative 2.0 % LAB HEMETOLOGY METHOD 08/10/2024 3:23 AM [facility] Basophils Relative 0.4 % LAB HEMETOLOGY METHOD 08/10/2024 3:23 AM [facility] Immature Granulocytes Relative 0.4 % LAB HEMETOLOGY METHOD 08/10/2024 3:23 AM [facility] Neutrophils Absolute 7.53(H) 1.50 - 7.00 K/mcL LAB HEMETOLOGY METHOD 08/10/2024 3:23 AM [facility] Lymphocytes Absolute 1.15 1.00 - 5.00 K/mcL LAB HEMETOLOGY METHOD 08/10/2024 3:23 AM [facility] Monocytes Absolute 0.75 0.20 - 1.00 K/mcL LAB HEMETOLOGY METHOD 08/10/2024 3:23 AM [facility] Eosinophils Absolute 0.19 0.00 - 0.50 K/mcL LAB HEMETOLOGY METHOD 08/10/2024 3:23 AM [facility] Basophils Absolute 0.04 0.00 - 0.20 K/mcL LAB HEMETOLOGY METHOD 08/10/2024 3:23 AM [facility] Immature Granulocytes Absolute 0.04(H) 0.00 - 0.03 K/mcL LAB HEMETOLOGY METHOD 08/10/2024 3:23 AM EDT [facility] Blood Venous blood specimen / Unknown Venipuncture / Unknown 08/10/2024 2:46 AM EDT 08/10/2024 3:17 AM EDT us Negro Turner MD LAB BLOOD ORDERABLES Final Resu lt Performing Organization Address [facility]/ZIP Co de Phone Number [facility] [address] [place] [address], [place] [phone] * B-type natriuretic peptide (08/10/2024 2:46 AM EDT) BNP 22 <=100 pcg/mL LAB CHEMISTRY METHOD 08/10/2024 3:48 AM EDT [facility] Blood Venous blood specimen / Unknown Venipuncture / Unknown 08/10/2024 2:46 AM EDT 08/10/2024 3:17 AM EDT us Negro Turner MD LAB BLOOD ORDERABLES Final Resu lt Performing Organization Address [facility]/ZIP Co de Phone Number [facility] [address] [place] [address], [place] [phone] * (ABNORMAL) Magnesium (08/10/2024 2:46 AM EDT) Magnesium 1.7(L) 1.9 - 2.6 mg/dL LAB CHEMISTRY METHOD 08/10/2024 3:42 AM EDT [facility] Blood Venous blood specimen / Unknown Venipuncture / Unknown 08/10/2024 2:46 AM EDT 08/10/2024 3:17 AM EDT us Negro Turner MD LAB BLOOD ORDERABLES Final Resu lt Performing Organization Address City/[facility]/ZIP Co de Phone Number [facility] [address] [place] [address], [place] [phone] * Lipase (08/10/2024 2:46 AM EDT) Lipase 38 13 - 75 unit/L LAB CHEMISTRY METHOD 08/10/2024 3:42 AM [facility] Blood Venous blood specimen / Unknown Venipuncture / Unknown 08/10/2024 2:46 AM EDT 08/10/2024 3:17 AM EDT us Negro Turner MD LAB BLOOD ORDERABLES Final Resu lt [facility] [address] [place] [address], * (ABNORMAL) Comprehensive metabolic panel (08/10/2024 2:46 AM EDT) Only the most recent of2 resultswithin the time period is included. Pathologist [facility] Sodium 136 133 - 145 mmol/L LAB CHEMISTRY METHOD 08/10/2024 3:42 AM [facility] Potassium 3.6 3.5 - 5.5 mmol/L LAB CHEMISTRY METHOD 08/10/2024 3:42 AM [facility] Chloride 106 96 - 110 mmol/L LAB CHEMISTRY METHOD 08/10/2024 3:42 AM [facility] CO2 23 21 - 32 mmol/L LAB CHEMISTRY METHOD 08/10/2024 3:42 AM [facility] Anion Gap 7 3 - 11 LAB CHEMISTRY METHOD 08/10/2024 3:42 AM [facility] Glucose 91 70 - 100 mg/dL LAB CHEMISTRY METHOD 08/10/2024 3:42 AM [facility] BUN 7 5 - 25 mg/dL LAB CHEMISTRY METHOD 08/10/2024 3:42 AM [facility] Creatinine 0.57 0.50 - 1.10 mg/dL LAB CHEMISTRY METHOD 08/10/2024 3:42 AM [facility] eGFR 124 >=60 mL/min/1. 73m2 LAB CHEMISTRY METHOD 08/10/2024 3:42 AM [facility] Comment:Calculation based on the Chronic Kidney Disease Epidemiology Collaboration (CKD-EPI) equation refit without adjustment for race. BUN/Creatinine Ratio 12.3 LAB CHEMISTRY METHOD 08/10/2024 3:42 AM [facility] Calcium 8.9 8.5 - 10.5 mg/dL LAB CHEMISTRY METHOD 08/10/2024 3:42 AM [facility] AST (SGOT) 10 10 - 42 unit/L LAB CHEMISTRY METHOD 08/10/2024 3:42 AM [facility] ALT (SGPT) 18 10 - 60 unit/L LAB CHEMISTRY METHOD 08/10/2024 3:42 AM [facility] Alkaline Phosphatase 57 42 - 121 unit/L LAB CHEMISTRY METHOD 08/10/2024 3:42 AM [facility] Total Protein 6.9 6.0 - 8.0 g/dL LAB CHEMISTRY METHOD 08/10/2024 3:42 AM [facility] Albumin 3.0(L) 3.2 - 5.0 g/dL LAB CHEMISTRY METHOD 08/10/2024 3:42 AM [facility] Total Bilirubin 0.2 0.0 - 1.4 mg/dL LAB CHEMISTRY METHOD 08/10/2024 3:42 AM [facility] Blood Venous blood specimen / Unknown Venipuncture / Unknown 08/10/2024 2:46 AM EDT 08/10/2024 3:17 AM EDT us Negro Turner MD LAB BLOOD ORDERABLES Final Resu lt [facility] [address] [place] [address], * External MRI Report (07/10/2024) Anatomical Region Laterality Modality Magnetic Resonan ce us Provider [facility] IMG MRI PROCEDURES Final Result * (ABNORMAL) Hepatic function panel (07/09/2024 8:57 AM EDT) Total Protein 7.7 6.0 - 8.0 g/dL LAB CHEMISTRY METHOD 07/09/2024 1:00 PM EDT [facility] Albumin 3.5 3.2 - 5.0 g/dL LAB CHEMISTRY METHOD [facility] Total Bilirubin 0.3 0.0 - 1.4 mg/dL LAB CHEMISTRY METHOD 07/09/2024 1:00 PM [facility] Bilirubin, Direct 0.1 0.0 - 0.3 mg/dL LAB CHEMISTRY METHOD 07/09/2024 1:00 PM [facility] Bilirubin, Indirect 0.2 0.0 - 1.1 mg/dL LAB CHEMISTRY METHOD 07/09/2024 1:00 PM [facility] ALT (SGPT) 26 10 - 60 unit/L LAB CHEMISTRY METHOD 07/09/2024 1:00 PM [facility] AST (SGOT) 7(L) 10 - 42 unit/L LAB CHEMISTRY METHOD 07/09/2024 1:00 PM [facility] Alkaline Phosphatase 61 42 - 121 unit/L LAB CHEMISTRY METHOD 07/09/2024 1:00 PM [facility] Blood Venous blood specimen / Unknown Venipuncture / Unknown 07/09/2024 8:57 AM EDT 07/09/2024 8:57 AM EDT us Ngero Fraire MD LAB BLOOD ORDERABLES Final Res ult [facility] [address] [place] [address], [place] [phone] * HIV 1,2 antibody, p24 antigen with reflex to differentiation (06/22/2024 4:57 PM EDT) Pathologist [facility] HIV Combo AB/AG Negative Negative LAB CHEMISTRY METHOD 06/22/2024 8:43 PM EDT [facility] Blood Venous blood specimen / Unknown Venipuncture / Unknown 06/22/2024 4:57 PM EDT 06/22/2024 5:01 PM EDT Narrative [facility] - 06/22/2024 8:43 PM EDT [...] City/[facility]/ZIP Co de Phone Number [facility] [address] [place] [address], [place] [phone] * Treponema pallidum antibody with reflex to RPR and particle agglutination (06/22/2024 4:57 PM EDT) [facility] T. Pallidum Antibodies Negative Negative LAB CHEMISTRY METHOD 06/22/2024 8:14 PM EDT [facility] Blood Venous blood specimen / Unknown Venipuncture / Unknown 06/22/2024 4:57 PM EDT 06/22/2024 5:01 PM EDT us Negro Fraire MD LAB BLOOD ORDERABLES Final Res ult [facility] [address] [place] [address], [place] [phone] * (ABNORMAL) Thyroid stimulating hormone with reflex to free t4 and free t3 (06/22/2024 4:57 PM EDT) TSH 4.05(H) 0.40 - 4.00 mcIU/mL LAB CHEMISTRY METHOD 06/22/2024 8:04 PM EDT [facility] Blood Venous blood specimen / Unknown Venipuncture / Unknown 06/22/2024 4:57 PM EDT 06/22/2024 5:01 PM EDT us Negro Fraire MD LAB BLOOD ORDERABLES Final Res ult Performing Organization Address [facility]/ZIP Co de Phone Number [facility] [address] [place] [address], [place] [phone] * Free thyroxine with reflex to free triiodothyronine (06/22/2024 4:57 PM EDT) [facility] Free T4 1.10 0.70 - 1.80 ng/dL LAB CHEMISTRY METHOD 06/22/2024 9:19 PM EDT [facility] Blood Venous blood specimen / Unknown Venipuncture / Unknown 06/22/2024 4:57 PM EDT 06/22/2024 5:01 PM EDT us Negro Fraire MD LAB BLOOD ORDERABLES Final Res ult Performing Organization Address City/[facility]/ZIP Co de Phone Number [facility] [address] [place] [address], [place] [phone] * Lipid panel with reflex to direct LDL (06/22/2024 4:57 PM EDT) [facility] Cholesterol 163 0 - 200 mg/dL LAB CHEMISTRY METHOD 06/22/2024 7:02 PM EDT [facility] Triglycerides 97 0 - 150 mg/dL LAB CHEMISTRY METHOD 06/22/2024 7:02 PM EDT [facility] HDL 55 >=40 mg/dL LAB CHEMISTRY METHOD 06/22/2024 7:02 PM EDT [facility] LDL Calculated 89 0 - 100 mg/dL LAB CHEMISTRY METHOD 06/22/2024 7:02 PM EDT [facility] VLDL Cholesterol Sukhdev 19.4 mg/dL LAB CHEMISTRY METHOD 06/22/2024 7:02 PM EDT [facility] Non HDL Chol. (LDL+VLDL) 108 <145 mg/dL LAB CHEMISTRY METHOD 06/22/2024 7:02 PM EDT [facility] Chol/HDL Ratio 3.0 0.0 - 4.4 LAB CHEMISTRY METHOD 06/22/2024 7:02 PM EDT [facility] Blood Venous blood specimen / Unknown Venipuncture / Unknown 06/22/2024 4:57 PM EDT 06/22/2024 5:01 PM EDT us Negro Fraire MD LAB BLOOD ORDERABLES Final Res ult [facility] [address] [place] [address], [place] [phone] * Hepatitis panel, acute with reflex to confirmation (06/22/2024 4:57 PM EDT) Hepatitis B Surface Ag Negative Negative LAB CHEMISTRY METHOD 06/22/2024 10:00 PM EDT [facility] Hepatitis A Antibody IgM Negative Negative LAB CHEMISTRY METHOD 06/22/2024 10:00 PM EDT [facility] Hep B Core IgM Negative Negative LAB CHEMISTRY METHOD 06/22/2024 10:00 PM EDT [facility] Hepatitis C Antibody Negative Negative LAB CHEMISTRY METHOD 06/22/2024 10:00 PM EDT [facility] Blood Venous blood specimen / Unknown Venipuncture / Unknown 06/22/2024 4:57 PM EDT 06/22/2024 5:01 PM EDT us Negro Fraire MD LAB BLOOD ORDERABLES Final Res ult [facility] [address] [place] [address], * Herpes simplex virus 1 and 2 molecular study, qualitative (06/22/2024 4:57 PM EDT) Specimen Source Blood - Plasma 06/25/2024 11:21 AM EDT [facility] Herpes simplex Virus I Not detected Not detected 06/25/2024 11:21 AM EDT [facility] Herpes simplex Virus II Not detected Not detected 06/25/2024 11:21 AM EDT [facility] Comment: This test utilizes a real-time [...] characteristics of this procedure were determined by [facility]. This test is performed pursuant to a license agreement with [employer]. Test performed at [facility], [address], [place], [place] ??[address] ? [phone] Cassy Solis MD, PhD - Golf Ball Cover Treater Blood Venous blood specimen / Unknown Venipuncture / Unknown 06/22/2024 4:57 PM EDT 06/22/2024 5:01 PM EDT Negro Fraire MD LAB MICROBIOLOGY - GENERAL ORD ERABLES Final Result [facility] [address] [place] [address] * Chlamydia trachomatis and Neisseria gonorrhoeae molecular study (06/22/2024 4:57 PM EDT) Neisseria gonorrhoeae PCR Negative Negative LAB MOLECULAR DIAGNOSTICS METHOD 06/23/2024 2:41 PM EDT [facility] Chlamydia trachomatis PCR Negative Negative LAB MOLECULAR DIAGNOSTICS METHOD 06/23/2024 2:41 PM EDT [facility] Swab Urine specimen from urethra / Unknown Non-blood Collection / Unknown 06/22/2024 4:57 PM EDT 06/22/2024 5:01 PM EDT us Ngero Fraire MD LAB MICROBIOLOGY - GENERAL ORD ERABLES Final Result [facility] [address] [place] [address], [place] [phone] * (ABNORMAL) Complete blood count (06/22/2024 4:57 PM EDT) WBC 8.9 4.8 - 10.8 K/mcL LAB HEMETOLOGY METHOD 06/22/2024 6:24 PM EDT [facility] RBC 4.80 3.80 - 4.80 M/mcL LAB HEMETOLOGY METHOD 06/22/2024 6:24 PM EDT [facility] Hemoglobin 12.2 11.5 - 16.0 g/dL LAB HEMETOLOGY METHOD 06/22/2024 6:24 PM EDT [facility] Hematocrit 38.9 35.0 - 47.0 % LAB HEMETOLOGY METHOD 06/22/2024 6:24 PM EDT [facility] MCV 81.9 79.0 - 98.0 FL LAB HEMETOLOGY METHOD 06/22/2024 6:24 PM EDT [facility] MCH 25.7(L) 27.0 - 32.0 pcg LAB HEMETOLOGY METHOD 06/22/2024 6:24 PM [facility] MCHC 31.4(L) 32.0 - 37.0 g/dL LAB HEMETOLOGY METHOD 06/22/2024 6:24 PM EDT [facility] RDW 14.9 11.0 - 15.0 % LAB HEMETOLOGY METHOD 06/22/2024 6:24 PM EDT [facility] Platelets 399 130 - 400 K/mcL LAB HEMETOLOGY METHOD 06/22/2024 6:24 PM EDT [facility] MPV 9.6 7.0 - 11.0 FL LAB HEMETOLOGY METHOD 06/22/2024 6:24 PM EDT [facility] NRBC 0.0 <1.0 % LAB HEMETOLOGY METHOD 06/22/2024 6:24 PM EDT [facility] NRBC Absolute 0.00 <0.10 K/mcL LAB HEMETOLOGY METHOD 06/22/2024 6:24 PM EDT [facility] Blood Venous blood specimen / Unknown Venipuncture / Unknown 06/22/2024 4:57 PM EDT 06/22/2024 5:01 PM EDT us Negro Fraire MD LAB BLOOD ORDERABLES Final Res ult [facility] [address] [place] [address], [place] [phone] * Triiodothyronine free (06/22/2024 4:57 PM EDT) T3, Free 245 230 - 420 pcg/dL LAB CHEMISTRY METHOD 06/22/2024 9:45 PM EDT [facility] Blood Venous blood specimen / Unknown Venipuncture / Unknown 06/22/2024 4:57 PM EDT 06/22/2024 5:01 PM EDT us Negro Fraire MD LAB BLOOD ORDERABLES Final Res ult [facility] [address] [place] [address], [place] [phone] * Depression Screening (10/02/2023) Depression Screening abstracted us Historical Provider HEALTH MAINTENANCE Final Result from Last 3 Months or Most Recently Relevant to Health Maintenance Insurance [employer] [facility] Care Teams 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
== END 2024-09-07 11:07 | disposition home or self-care (01) ==
LOC: HO.PMC 10:25
PROVIDERS: PCP Internal Medicine; Visit Provider Nurse Practitioner Family
DX: M22.2X2 Patellofemoral disorders, left knee (principal); M25.562 Pain in left knee; G89.29 Other chronic pain; Y99.0 Civilian activity done for income or pay
CPT/HCPCS: 99204

== ENCOUNTER → 2024-09-07 10:24 | Outpatient (BNVA) | payer OTHER, SELFPAY | PROVIDERS: PCP Internal Medicine; Visit Provider Nurse Practitioner Family | DX: M25.562 Pain in left knee (principal); G89.29 Other chronic pain; M22.2X2 Patellofemoral disorders, left knee; S80.02XD Contusion of left knee, subsequent encounter; W00.0XXD Fall on same level due to ice and snow, subsequent encounter; Z04.2 Encounter for examination and observation following work accident | CPT/HCPCS: 99202 ==

== ENCOUNTER → 2024-09-09 09:23 | Outpatient (BNVA) | payer OTHER, SELFPAY | PROVIDERS: PCP Internal Medicine; Visit Provider Internal Medicine | DX: Z13.89 Encounter for screening for other disorder (principal) | CPT/HCPCS: 99213 ==

== ENCOUNTER 2024-09-25 11:33 | Outpatient (AMB) | payer OTHER, SELFPAY ==
[2024-09-25 11:44] VITALS: BP 108/68; PULSE 79; RESP 16; O2SAT 96; BMI 37.1
--- NOTE | 2024-09-25 11:44 | A.OFFVIS_ITS ---
Vital Signs 09/25/24 11:44 Height 5 ft 6 in Weight 230 lb BMI 37.1 BP 108/68 Blood Pressure Location Lt brachial Position Sitting Respiration 16 Pulse 79 Pulse Source Pulse Oximeter Pulse Oximetry (%) 96 Oxygen Delivery Method Room Air Intake Visit Reasons: Left Dx SNB Senior Security Analyst Required: No Blasting Miner: Blasting Miner Present Accompanied by: Wilbert Singletary Allergies No Known Allergies Allergy (Verified 09/25/24 11:46) Medication List - Last Reconciled 09/25/24 by Yancy Fuller LPN bismutpaulino tribrom-petrolatum,wh 2 X 2 (Xeroform Petrolatum Dressing) As directed with daily dressing changes ibuprofen 800 mg PO Q8H PRN 30 days levothyroxine mcg PO DAILY lidocaine 5% 1 patch topically 1 patch daily q 12 hours; leave on most painful area for up to 12 hrs HPI HPI Left Dx SNB: Details: History of Present Illness The patient is a 33-year-old female presenting with knee pain and associated nerve pain. The knee pain began after a fall in March, and since then, she has experienced a burning sensation and nerve pain that occurs almost daily. The pain radiates from the knee upwards, and she describes it as a tickling and burning sensation. An MRI has shown a potential tear in the tendon, which is expected to take a significant amount of time to heal, possibly up to two years. Physical therapy and quadricep strengthening exercises have been recommended, although previous physical therapy for back issues did not alleviate numbness. The patient has b een advised to engage in low-impact activities such as swimming to avoid further strain on the knee. Pain Description - Onset: Pain began after a fall in March. - Quality: Burning and tickling sensation. - Location: From the knee upwards. - Exacerbating factors: Daily activities. - Relieving factors: None explicitly mentioned. - Interference: Pain affects daily activities and requires management. Physical Exam - Musculoskeletal: Tenderness at the site of potential tendon tear in the left knee. Results - Imaging: MRI shows potential tendon tear in the knee. Pain Management - Affect: Pain impacts daily activities. - Analgesia: Test injection with numbing agent planned to assess pain relief. - Adverse Effects: None reported from current pain management. - Activities of Daily Living: Pain affects daily activities; advised to engage in low-impact exercises. - Aberrant Drug Related Behaviors: None reported. 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 The patient was placed supine on the table. The medial thigh area overlying the adductor canal was widely prepped with chloraprep, allowed to dry. Using ultrasound, the appropriate landmarks including the femoral artery and saphenous nerve were identified. A 21 gauge 80 mm echostim needle was advanced under sonographic guidance to the adductor canal. Aspiration was negative for heme and synovial fluid. 10 cc of lidocaine 1%? was injected around the saphenous nerve. US image of the injection was saved. The needle was removed, skin cleansed and a sterile bandage was applied. The patient tolerated the procedure well and no complications were encountered. Following the procedure the patient's vital signs and knee strength were stable. The patient was discharged home in good condition with post-procedural instructions. Time Out: Immediately prior to the procedure, the following was verbally confirmed that there is a signed consent form and that the correct patient, planned procedure, site and side are consistent with documentation and that necessary equipment and/or blood products are available prior to the start of the case. Complications: none EBL: <1 cc 73936 - Femoral (adductor injection) Procedure code (CPT) selection complete Assessment & Plan Assessment & Plan (1) Patellofemoral syndrome of left knee: Code(s): M22.2X2 - Patellofemoral disorders, left knee Category: Medical (2) Chronic pain of left knee: Code(s): M25.562 - Pain in left knee; G89.29 - Other chronic pain Category: Medical Plan Plan - S/p diagnostic saphenous block to evaluate pain relief. - Recommend physical therapy focusing on quadricep strengthening and low-impact exercises such as swimming. - Monitor the healing process of the potential tendon tear, which may take up to two years. - Follow-up with the primary care provider to assess the effectiveness of the injection and adjust the treatment plan as necessary. Patient was informed and verbally consented to the use of an ambient scribe for clinic note documentation during this visit. Discussion Notes I discussed with the patient the potential tendon tear identified on the MRI and the expected healing time, which could be up to two years. We talked about the use of a test injection with a numbing agent to evaluate its effectiveness in managing her pain and for potential planning for a trial of temporary PNS. I advised her to engage in low-impact exercises such as swimming and to follow up with her primary care provider to determine the next steps based on the injection's outcome. Patient Instructions - Monitor your pain levels after the injection and compare them to before the injection. - Engage in low-impact exercises like swimming to avoid further strain on your knee. - Follow up with your primary care provider to discuss the effectiveness of the injection and adjust your treatment plan as needed. Coding Level of Care Code Est Pt Level 3 (94292) Diagnoses Patellofemoral syndrome of left knee M22.2X2 Chronic pain of left knee M25.562; G89.29 CPT Codes Nerve Block - Nerve Block 7: 86367 - Femoral (adductor injection) ([id number])
--- OUTSIDE RECORDS SUMMARY | 2024-09-25 12:47 | XMS_ITS | Clinical Summary ---
Author Organization [facility] [address] [facility] Building Address [address] [place] [address] Phone Care Team Providers Care Oven Dauber Name Role Phone Negro Fraire MD Primary Care Provider [phone] Allergies No known active allergies Medications levothyroxine [...] PM EDT Office Visit Bariatric Surgery - [address] [place] [address] Karla Plasencia PA Class 2 obesity due to excess calories with body mass index (BMI) of 38.0 to 38.9 in adult, unspecified whether serious comorbidity present (Primary Dx) 08/10/2024 7:35 AM EDT - 08/10/2024 11:54 AM EDT Emergency [facility] Emergency [address] [place] [address] Negro Turner MD Epigastric pain (Primary Dx) Discharge Disposition: Home or Self Care 06/29/2024 Telephone Internal Medicine - [place] [address] [place] [address] Negro Fraire MD Referral ([facility] [place] IV[facility]) from Last 3 Months Immunizations Name Administration Dates Next Due DTaP (Infanrix) 6wks to less than 7yo ,12/11/1993,1992,1992,03/01/1992 [id number] (Pentacel) 2mo to less than 5yo 12/21/1995,05/02/1993,06/21/1992,1991 HPV, Quadrivalent 08/27/2008,11/27/2007,03/27/20 06 Hepatitis B (Osdylcq-U-Gsuit , Recombivax HB-Adult) 19yo and older 04/14/2018 [...] BIOPSY W/ LOOP ELECTRODE EXCISION 01/2017 PROCEDURE: [place] CONIZATION CERVIX W/WO D&C RPR ELTRD EXC; [...] care for your loved ones. For example, maternal child nurse or elderly care for an older adult? [...] 84 08/18/2024 3:46 PM EDT Temperature 36.5 C (97.7 F) 08/10/2024 11:26 AM EDT Respiratory Rate 19 08/10/2024 11:26 AM EDT [...] PM EDT Office Visit Bariatric Surgery - [place] [address] [place] [phone] Karla Plasencia PA [address] [place] [address] [place] [address] 06/29/2025 4:00 PM EDT Office Visit Internal Medicine - [address] [phone] Negro Fraire MD [address] [place] [address] Health Maintenance Due Date Last Done Comments [...] Routine 8:57 AM EDT Elevated total protein HEPATITIS PANEL, ACUTE WITH REFLEX TO CONFIRMATION Routine 06/22/2024 4:57 PM EDT Screening for thyroid disorder Screening for hyperlipidemia Screening for diabetes mellitus Screening for deficiency anemia STD exposure HIV 1, 2 ANTIBODY, P24 ANTIGEN WITH REFLEX TO DIFFERENTIATION Routine 06/22/2024 4:57 PM EDT STD exposure LIPID PANEL WITH REFLEX TO DIRECT LDL Routine 06/22/2024 4:57 PM EDT Screening for hyperlipidemia HM DEPRESSION SCREENING Routine 10/02/2023 from Last 3 Months or Most Recently Relevant to Health Maintenance Results * ECG-Annotated (08/11/2024) us Provider Onbase MD ECG ORDERABLES Final Result * US Abdomen Limited (08/10/2024 10:16 AM EDT) Anatomical Region Laterality Modality Body Ultrasound 08/10/2024 10:3 5 AM EDT Impressions 08/10/2024 10:37 AM EDT 1. Echogenic liver parenchyma suggestive of steatosis. 2. Gallbladder is contracted, limiting evaluation. No appreciable pericholecystic or wall thickening. Negative sonographic Mera sign. -------- FINAL REPORT -------- Dictated By: Rodolfo Arreola Dictated Date: 08/10/2024 10:35 ET Assigned Physician: Rodolfo Arreola Reviewed and Electronically Signed By: Rodolfo Arreola Signed Date: 08/10/2024 10:37 ET Workstation ID: [id number] Transcribed By: Self Edit Transcribed Date: 08/10/2024 10:35 ET Narrative 08/10/2024 10:37 AM EDT PROCEDURE: Right upper quadrant ultrasound. HISTORY: pain ruq pain suspect biliary colic/noble. COMPARISON: 05/21/2024. TECHNIQUE: Grayscale, color Doppler, and spectral Doppler ultrasound evaluation of the right upper quadrant of the abdomen. FINDINGS: LIVER: Echogenic parenchyma. No focal lesion. Normal flow in the main portal vein. BILIARY: Contracted gallbladder, difficult to evaluate as a result. Normal caliber biliary tree. Negative sonographic Mera sign. PANCREAS: Visualized portions are normal. RIGHT KIDNEY: Normal size and echotexture. No hydronephrosis or focal lesion. Procedure Note Rodolfo [...] Signed Date: 08/10/2024 10:37 ET Workstation ID: [id number] Transcribed By: Self Edit Transcribed Date: 08/10/2024 10:35 ET us Negro Turner MD IMG US PROCEDURES Final Result * US OB Less 14 Wks Single or First Gestation (08/10/2024 10:16 AM EDT) Anatomical Region Laterality Modality Body Ultrasound 08/10/2024 10:4 9 AM EDT Impressions 08/10/2024 10:53 AM EDT Impression: 1. Single live intrauterine gestation, with estimated sonographic age of 8 weeks (CHRISTIAN 03/22/25). 2. [place] ([id number]) -------- FINAL REPORT -------- Dictated By: Sasha Shaikh Dictated Date: 08/10/2024 10:49 ET Assigned Physician: Sasha Shaikh Reviewed and Electronically Signed By: Sasha Shaikh Signed Date: 08/10/2024 10:53 ET Workstation ID: [id number] Transcribed By: Self Edit Transcribed Date: 08/10/2024 [...] 03/22/25). 2. No adnexal masses. Telerad REVA ([id number]) -------- FINAL REPORT -------- Dictated By: Sasha Shaikh Dictated Date: 08/10/2024 10:49 ET Assigned Physician: Sasha Shaikh Reviewed and Electronically Signed By: Sasha Shaikh Signed Date: 08/10/2024 10:53 ET Workstation ID: [id number] Transcribed By: Self Edit Transcribed Date: 08/10/2024 10:49 ET us Negro Turner MD IMG OB US PROCEDURES Final Resu lt * Troponin I high sensitivity (08/10/2024 4:22 AM EDT) Only the most recent of2 resultswithin the time period is included. High Sensitivity Troponin I <3 <=54 ng/L LAB CHEMISTRY METHOD 08/10/2024 6:18 AM EDT [facility] Blood Venous blood specimen / Unknown Venipuncture / Unknown 08/10/2024 4:22 AM EDT 08/10/2024 5:51 AM EDT Narrative [facility] - 08/10/2024 6:18 AM EDT High levels of biotin in samples may falsely decrease hsTroponin values. Use caution when interpreting hsTroponin results in patients taking biotin who exhibit renal impairment (eGFR <60) or in patients taking more than 20 mg/day of biotin. us Negro Turner MD LAB BLOOD ORDERABLES Final Resu lt [facility] [address] [place] [address], [place] [phone] * (ABNORMAL) POC , urine manually resulted [...] GEMUSE QTc 423 ms GEMUSE P Wave Crystal 39 degrees GEMUSE R Crystal 25 degrees GEMUSE T Crystal 14 degrees GEMUSE ECG Interpretation Normal sinus rhythm Normal ECG When compared with ECG of 10-AUG-2024 02:42, (unconfirmed) No significant change was found Confirmed by Bin BAUER JOHN ([id number]) on 08/10/2024 7:30:22 PM GEMUSE 08/10/2024 4:19 AM EDT 08/10/2024 7:30 PM EDT us Negro Turner MD ECG ORDERABLES Final Result GEMUSE * (ABNORMAL) CBC auto differential (08/10/2024 2:46 AM EDT) WBC 9.7 4.8 - 10.8 K/mcL LAB HEMETOLOGY METHOD 08/10/2024 3:23 AM [facility] RBC 4.00 3.80 - 4.80 M/mcL LAB HEMETOLOGY METHOD 08/10/2024 3:23 AM [facility] Hemoglobin 10.4(L) 11.5 - 16.0 g/dL LAB HEMETOLOGY METHOD 08/10/2024 3:23 AM [facility] Hematocrit 32.2(L) 35.0 - 47.0 % LAB HEMETOLOGY METHOD 08/10/2024 3:23 AM [facility] MCV 79.7 79.0 - 98.0 FL LAB HEMETOLOGY METHOD 08/10/2024 3:23 AM [facility] MCH 25.7(L) 27.0 - 32.0 pcg LAB HEMETOLOGY METHOD 08/10/2024 3:23 AM [facility] MCHC 32.3 32.0 - 37.0 g/dL LAB HEMETOLOGY METHOD 08/10/2024 3:23 AM [facility] RDW 16.1(H) 11.0 - 15.0 % LAB HEMETOLOGY METHOD 08/10/2024 3:23 AM [facility] Platelets 299 130 - 400 K/mcL LAB HEMETOLOGY METHOD 08/10/2024 3:23 AM [facility] MPV 9.4 7.0 - 11.0 FL LAB HEMETOLOGY METHOD 08/10/2024 3:23 AM [facility] NRBC 0.0 <1.0 % LAB HEMETOLOGY METHOD 08/10/2024 3:23 AM [facility] NRBC Absolute 0.00 <0.10 K/mcL LAB HEMETOLOGY METHOD 08/10/2024 3:23 AM [facility] Neutrophils Relative 77.6 % LAB HEMETOLOGY METHOD 08/10/2024 3:23 AM [facility] Lymphocytes Relative 11.9 % LAB HEMETOLOGY METHOD 08/10/2024 3:23 AM [facility] Monocytes Relative 7.7 % LAB HEMETOLOGY METHOD 08/10/2024 3:23 AM [facility] Eosinophils Relative 2.0 % LAB HEMETOLOGY METHOD 08/10/2024 3:23 AM [facility] Basophils Relative 0.4 % LAB HEMETOLOGY METHOD 08/10/2024 3:23 AM [facility] Immature Granulocytes Relative 0.4 % LAB HEMETOLOGY METHOD 08/10/2024 3:23 AM [facility] Neutrophils Absolute 7.53(H) 1.50 - 7.00 K/mcL LAB HEMETOLOGY METHOD 08/10/2024 3:23 AM [facility] Lymphocytes Absolute 1.15 1.00 - 5.00 K/mcL LAB HEMETOLOGY METHOD 08/10/2024 3:23 AM [facility] Monocytes Absolute 0.75 0.20 - 1.00 K/mcL LAB HEMETOLOGY METHOD 08/10/2024 3:23 AM [facility] Eosinophils Absolute 0.19 0.00 - 0.50 K/mcL LAB HEMETOLOGY METHOD 08/10/2024 3:23 AM [facility] Basophils Absolute 0.04 0.00 - 0.20 K/mcL LAB HEMETOLOGY METHOD 08/10/2024 3:23 AM EDT [facility] Immature Granulocytes Absolute 0.04(H) 0.00 - 0.03 K/[facility] LAB HEMETOLOGY METHOD 08/10/2024 3:23 AM EDT [facility] Blood Venous blood specimen / Unknown Venipuncture / Unknown 08/10/2024 2:46 AM EDT 08/10/2024 3:17 AM EDT us Negro Turner MD LAB BLOOD ORDERABLES Final Resu lt Performing Organization Address City/[facility]/ZIP Co de Phone Number [facility] [address] [place] [address], [place] [phone] * B-type natriuretic peptide (08/10/2024 2:46 AM EDT) BNP 22 <=100 pcg/mL LAB CHEMISTRY METHOD 08/10/2024 3:48 AM EDT [facility] Blood Venous blood specimen / Unknown Venipuncture / Unknown 08/10/2024 2:46 AM EDT 08/10/2024 3:17 AM EDT us Negro Turner MD LAB BLOOD ORDERABLES Final Resu lt [facility] [address] [place] [address], [place] [phone] * (ABNORMAL) Magnesium (08/10/2024 2:46 AM EDT) Magnesium 1.7(L) 1.9 - 2.6 mg/dL LAB CHEMISTRY METHOD 08/10/2024 3:42 AM EDT [facility] Blood Venous blood specimen / Unknown Venipuncture / Unknown 08/10/2024 2:46 AM EDT 08/10/2024 3:17 AM EDT us Negro Turner MD LAB BLOOD ORDERABLES Final Resu lt Performing Organization Address City/[facility]/ZIP Co de Phone Number [facility] [address] [place] [address], [place] [phone] * Lipase (08/10/2024 2:46 AM EDT) Lipase 38 13 - 75 unit/L LAB CHEMISTRY METHOD 08/10/2024 3:42 AM EDT [facility] Blood Venous blood specimen / Unknown Venipuncture / Unknown 08/10/2024 2:46 AM EDT 08/10/2024 3:17 AM EDT us Negro Turner MD LAB BLOOD ORDERABLES Final Resu lt Performing Organization Address [facility]/ZIP Co de Phone Number [facility] [address] [place] [address], [place] [phone] * (ABNORMAL) Comprehensive metabolic panel (08/10/2024 2:46 AM EDT) Pathologist [facility] Sodium 136 133 - 145 mmol/L LAB CHEMISTRY METHOD 08/10/2024 3:42 AM [facility] Potassium 3.6 3.5 - 5.5 mmol/L LAB CHEMISTRY METHOD 08/10/2024 3:42 AM [facility] Chloride 106 96 - 110 mmol/L LAB CHEMISTRY METHOD 08/10/2024 3:42 AM [facility] CO2 23 21 - 32 mmol/L LAB CHEMISTRY METHOD 08/10/2024 3:42 AM [facility] Anion Gap 7 3 - 11 LAB CHEMISTRY METHOD 08/10/2024 3:42 AM [facility] Glucose 91 70 - 100 mg/dL LAB CHEMISTRY METHOD 08/10/2024 3:42 AM [facility] BUN 7 5 - 25 mg/dL LAB CHEMISTRY METHOD 08/10/2024 3:42 AM [facility] Creatinine 0.57 0.50 - 1.10 mg/dL LAB CHEMISTRY METHOD 08/10/2024 3:42 AM [facility] eGFR 124 >=60 mL/min/1. 73m2 LAB CHEMISTRY METHOD 08/10/2024 3:42 AM [facility] Comment:Calculation based on the Chronic Kidney Disease Epidemiology Collaboration (CKD-EPI) equation refit without adjustment for race. BUN/Creatinine Ratio 12.3 LAB CHEMISTRY METHOD 08/10/2024 3:42 AM [facility] Calcium 8.9 8.5 - 10.5 mg/dL LAB CHEMISTRY METHOD 08/10/2024 3:42 AM [facility] AST (SGOT) 10 10 - 42 unit/L LAB CHEMISTRY METHOD 08/10/2024 3:42 AM [facility] ALT (SGPT) 18 10 - 60 unit/L LAB CHEMISTRY METHOD 08/10/2024 3:42 AM [facility] Alkaline Phosphatase 57 42 - 121 unit/L LAB CHEMISTRY METHOD 08/10/2024 3:42 AM [facility] Total Protein 6.9 6.0 - 8.0 g/dL LAB CHEMISTRY METHOD 08/10/2024 3:42 AM [facility] Albumin 3.0(L) 3.2 - 5.0 g/dL LAB CHEMISTRY METHOD 08/10/2024 3:42 AM [facility] Total Bilirubin 0.2 0.0 - 1.4 mg/dL LAB CHEMISTRY METHOD 08/10/2024 3:42 AM [facility] Blood Venous blood specimen / Unknown Venipuncture / Unknown 08/10/2024 2:46 AM EDT 08/10/2024 3:17 AM EDT us Negro Turner MD LAB BLOOD ORDERABLES Final Resu lt [facility] [address] [place] [address], * External MRI Report (07/10/2024) Anatomical Region Laterality Modality Magnetic Resonan ce us Provider [facility] On[facility] IMG MRI PROCEDURES Final Result * (ABNORMAL) Hepatic function panel (07/09/2024 8:57 AM EDT) Total Protein 7.7 6.0 - 8.0 g/dL LAB CHEMISTRY METHOD 07/09/2024 1:00 PM EDT [facility] Albumin 3.5 3.2 - 5.0 g/dL LAB CHEMISTRY METHOD [facility] Total Bilirubin 0.3 0.0 - 1.4 mg/dL LAB CHEMISTRY METHOD 07/09/2024 1:00 PM [facility] Bilirubin, Direct 0.1 0.0 - 0.3 mg/dL LAB CHEMISTRY METHOD 07/09/2024 [facility] Bilirubin, Indirect 0.2 0.0 - 1.1 mg/dL LAB CHEMISTRY METHOD 07/09/2024 1:00 PM [facility] ALT (SGPT) 26 10 - 60 unit/L LAB CHEMISTRY METHOD 07/09/2024 1:00 PM [facility] AST (SGOT) 7(L) 10 - 42 unit/L LAB CHEMISTRY METHOD 07/09/2024 1:00 PM [facility] Alkaline Phosphatase 61 42 - 121 unit/L LAB CHEMISTRY METHOD 07/09/2024 1:00 PM [facility] Blood Venous blood specimen / Unknown Venipuncture / Unknown 07/09/2024 8:57 AM EDT 07/09/2024 8:57 AM EDT us Negro Fraire MD LAB BLOOD ORDERABLES Final Res ult Performing Organization Address [facility]/ZIP Co de Phone Number [facility] [address] [place] [address], [place] [phone] * HIV 1,2 antibody, p24 antigen with reflex to differentiation (06/22/2024 4:57 PM EDT) [facility] HIV Combo AB/AG Negative Negative LAB CHEMISTRY METHOD 06/22/2024 8:43 PM EDT [facility] Blood Venous blood specimen / Unknown Venipuncture / Unknown 06/22/2024 4:57 PM EDT 06/22/2024 5:01 PM EDT Narrative [facility] - 06/22/2024 8:43 PM EDT This assay is a 4th generation assay allowing for earlier detection of HIV infection by detecting the presence of the HIV-1 p24 antigen as well as the traditional antibodies to HIV type 1 (including group O) and type 2. Use of a 4th generation assay is the current CDC recommendation for HIV screening. us Negro Fraire MD LAB BLOOD ORDERABLES Final Res ult Performing Organization Address [facility]/ZIP Co de Phone Number [facility] [address] [place] [address], [place] [phone] * Lipid panel with reflex to direct LDL (06/22/2024 4:57 PM EDT) [facility] Cholesterol 163 0 - 200 mg/dL LAB CHEMISTRY METHOD 06/22/2024 7:02 PM EDT [facility] Triglycerides 97 0 - 150 mg/dL LAB CHEMISTRY METHOD 06/22/2024 7:02 PM EDT [facility] HDL 55 >=40 mg/dL LAB CHEMISTRY METHOD 06/22/2024 7:02 PM EDT [facility] LDL Calculated 89 0 - 100 mg/dL LAB CHEMISTRY METHOD 06/22/2024 7:02 PM EDT [facility] VLDL Cholesterol Sukhdev 19.4 mg/dL LAB CHEMISTRY METHOD 06/22/2024 7:02 PM EDT [facility] Non HDL Chol. (LDL+VLDL) 108 <145 mg/dL LAB CHEMISTRY METHOD 06/22/2024 7:02 PM EDT [facility] Chol/HDL Ratio 3.0 0.0 - 4.4 LAB CHEMISTRY METHOD 06/22/2024 7:02 PM EDT [facility] Blood Venous blood specimen / Unknown Venipuncture / Unknown 06/22/2024 4:57 PM EDT 06/22/2024 5:01 PM EDT us Negro Fraire MD LAB BLOOD ORDERABLES Final Res ult Performing Organization Address City/[facility]/ZIP Co de Phone Number [facility] [address] [place] [address], [place] [phone] * Hepatitis panel, acute with reflex to confirmation (06/22/2024 4:57 PM EDT) Hepatitis B Surface Ag Negative Negative LAB CHEMISTRY METHOD 06/22/2024 10:00 PM EDT [facility] Hepatitis A Antibody IgM Negative Negative LAB CHEMISTRY METHOD 06/22/2024 10:00 PM EDT [facility] Hep B Core IgM Negative Negative LAB CHEMISTRY METHOD 06/22/2024 10:00 PM EDT [facility] Hepatitis C Antibody Negative Negative LAB CHEMISTRY METHOD 06/22/2024 10:00 PM EDT [facility] Blood Venous blood specimen / Unknown Venipuncture / Unknown 06/22/2024 4:57 PM EDT 06/22/2024 5:01 PM EDT us Negro Fraire MD LAB BLOOD ORDERABLES Final Res ult Performing Organization Address City/[facility]/ZIP Co de Phone Number [facility] [address] [place] [address], * Depression Screening (10/02/2023) Depression Screening abstracted us Historical Provider MD HEALTH MAINTENANCE Final Result from Last 3 Months or Most Recently Relevant to Health Maintenance Insurance [employer] [facility] Care Teams Oven Dauber Relationship Specialty Start Date End Date Negro Fraire MD [address] [place] [phone] PCP - General Internal Medicine 01/24/24
== END 2024-09-25 12:17 | disposition home or self-care (01) ==
LOC: HO.PMC 11:34
PROVIDERS: PCP Internal Medicine; Visit Provider Internal Medicine
DX: M22.2X2 Patellofemoral disorders, left knee (principal); M25.562 Pain in left knee; G89.29 Other chronic pain
CPT/HCPCS: 64450; 76942; 99213

== ENCOUNTER → 2024-09-25 11:33 | Outpatient (BNVA) | payer OTHER, SELFPAY | PROVIDERS: PCP Internal Medicine; Visit Provider Internal Medicine | DX: M22.2X2 Patellofemoral disorders, left knee (principal); M25.562 Pain in left knee; G89.29 Other chronic pain | CPT/HCPCS: 64450; 99212; J2003 ==

== ENCOUNTER 2024-10-12 14:42 | Emergency (ER) | payer MEDICAID, SELFPAY ==
[2024-10-12 15:11] VITALS: BP 106/61; PULSE 87; RESP 16; TEMP 36.3; O2SAT 99; BMI 30.4
--- NOTE | 2024-10-12 15:12 | ECG_ITS ---
Test Reason : CP Blood Pressure : */* mmHG Vent. Rate : 81 BPM Atrial Rate : 81 BPM P-R Int : 150 ms QRS Dur : 68 ms QT Int : 378 ms P-R-T Axes : 33 19 -1 degrees QTcB Int : 439 ms Normal sinus rhythm Nonspecific ST and T wave abnormality Abnormal ECG No previous ECGs available Referred By: Ira Scanlon Electronically Signed By: ELVIRA ALEX
--- NOTE | 2024-10-12 15:13 | ED_ITS ---
HPI - General Adult General Chief complaint: General Medical Stated complaint: vomiting Time Seen by Provider: 10/12/24 21:03 Related Data Home Medications ?Medication ?Instructions ?Recorded ?Confirmed levothyroxine 50 mcg tablet mcg PO DAILY 06/09/2408/31 Previous Rx's ?Medication ?Instructions ?Recorded bismuth tribrom-petrolatum,wh 2 X #1 packet 03/26/24 2 bandage (Xeroform Petrolatum Dressing) lidocaine 5 % topical patch 1 patch topical .COMPLEX p ain #30 08/21/24 ea ibuprofen 800 mg tablet 800 mg PO Q8H PRN pain 30 da ys #90 09/01/24 tabs Allergies Allergy/AdvReac Type Severity Reaction Status Date / Time No Known Allergies Allergy Verified 10/12/24 15:13 [facility] Past Medical History Surgical History History of loop electrical excision procedure (LEEP) Hx of appendectomy Social History Social History Patient Tobacco Use Status: Never used Tobacco Advance Directives: No Advance Directives Information Provided: No Do you have a plan to hurt others: No Plan Current occupational status: employed Current occupation: [employer] Physical Exam ED Vital Signs: Vital Signs - 24 hr 10/12/24 15:11 10/12/24 19:01 10/12/24 20:46 Temperature 97.4 F 98.2 F 97.1 F Pulse Rate 87 83 82 Respiratory Rate 16 16 15 Blood Pressure 106/61 111/66 100/61 Pulse Oximetry 99 97 100 Oxygen Delivery Method Room Air Room Air Room Air BMI result Body Mass Index 30.4 Course Course Course Narrative: 10/12/24 1513 REVA Murray This is a Rapid Medical Examination (RME) performed by Chata Scanlon PA-C in triage. Full HPI, ROS, assessment and treatment plan per primary provider in the Main ED. Hx: 33 yo F here w/ chest pain, N/V, burning sensation to epigastric region x2 hours. intermittent. somewhat relieved with motrin. no hx gerd. still has gallbladder. PE/vitals: well appearing. Plan: labs, ekg, virals Reevaluation(s) Reevaluation #1: Patient left the emergency department before myself or any of the other clinicians could review or explain physical exam findings, test results, need or lack there of for additional testing, treatment options, or a treatment plan. Medical Decision Making Lab Data 10/12/24 15:41 10/12/24 15:41 Labs: Lab Results 10/12/24 Range/Units 15:41 WBC 11.6 H (4.8-10.8) X10*3/uL RBC 3.70 L (4.20-5.50) X10*6/uL Hgb 9.3 L (12.0-16.0) g/dl Hct 29.0 L (37.0-47.0) % MCV 78.4 L (80.0-98.0) fL MCH 25.1 L (27.0-33.0) pg MCHC 32.1 (31.0-35.0) g/dl RDW 15.1 (11.0-16.0) % Plt Count 335 (160-400) X10*3/uL MPV 9.1 L (9.4-12.3) fL Immature Gran % (Auto) 0.3 (0.0-0.4) % Neut % (Auto) 79.9 H (45-73) % Lymph % (Auto) 10.2 L (20-40) % [place] % (Auto) 7.8 (2-11) % Eos % (Auto) 1.4 (0-4) % Baso % (Auto) 0.4 (0-2) % Lymph # (Auto) 1.2 (1.2-4.9) X10*3/uL [place] # (Auto) 0.9 (0.1-1.2) X10*3/uL Eos # (Auto) 0.2 (0.0-0.4) X10*3/uL Baso # (Auto) 0.1 (0.0-0.2) X10*3/uL Abs Immat Gran (auto) 0.04 H (0.00-0.03) X10*3/uL Absolute Neuts (auto) 9.3 H (2.0-8.3) x10*3/uL Absolute Nucleated RBC 0.000 (0.0-0.012) X10*3/uL Nucleated RBC % (auto) 0.0 (0.0-0.2) /100WBC Sodium 138 (135-145) mmol/L Potassium 3.7 (3.3-5.1) mmol/L Chloride 107 (96-108) mmol/L Carbon Dioxide 24 (22-29) mmol/L Anion Gap 11 L (12-20) BUN 10 (9-16) mg/dL Creatinine 0.62 (0.5-1.4) mg/dL Estim Creat Clear Calc 153.4 Estimated GFR > 60 Random Glucose 126 H (60-115) mg/dL Calcium 8.6 (8.4-10.2) mg/dL Magnesium 1.8 (1.6-2.6) mg/dL Total Bilirubin 0.3 (0.0-1.0) mg/dL AST 33 H (5-31) U/L ALT 24 (0-31) U/L Alkaline Phosphatase 64 (39-117) U/L Troponin I High Sens < 2.7 (<3.5-17.0) ng/L Total Protein 7.3 (6.5-8.0) g/dL Albumin 3.7 (3.5-5.0) g/dL Lipase 27 (8-78) U/L Beta HCG, Quant < 2 mIU/mL Influenza Type A (PCR) NEGATIVE (Negative) Influenza Type B (PCR) NEGATIVE (Negative) RSV RNA Qual (PCR) NEGATIVE (Negative) SARS-CoV-2 RNA (RT-PCR) NEGATIVE (Negative) Discharge Plan Discharge Clinical Impression: Abdominal pain Patient Disposition: Left W/O Completing Treatment Prescriptions: No Action lidocaine 5 % adhesive patch,medicated 1 patch topical .COMPLEX Qty: 30 2RF Rx Instructions: 1 patch topically 1 patch daily q 12 hours; leave on most painful area for up to 12 hrs ibuprofen 800 mg tablet 800 mg PO Q8H PRN (Reason: pain) 30 Days Qty: 90 0RF levothyroxine 50 mcg tablet PO DAILY (DME) Xeroform Petrolatum Dressing 2 X 2 bandage See Rx Instructions .Route Qty: 1 0RF Rx Instructions: As directed with daily dressing changes Discharge Date/Time: 10/12/24 21:03
--- NOTE | 2024-10-12 15:27 | MHC.EDTECH ---
delay on EKG Due to the machine being use by another patient nurse aware
[2024-10-12 15:46] LABS: MANUAL DIFF FLAG NO
[2024-10-12 15:50] LABS: Hematocrit 29.0 % (37.0-47.0); Hemoglobin 9.3 g/dl (12.0-16.0); Imm Gran Abs Auto 0.04 X10*3/uL (0.00-0.03); Imm Gran Pct Auto 0.3 % (0.0-0.4); Lymphocytes Absolute Auto 1.2 X10*3/uL (1.2-4.9); Mean Corpuscular HGB Conc 32.1 g/dl (31.0-35.0); Mean Corpuscular Hemoglobin 25.1 pg (27.0-33.0); Mean Corpuscular Volume 78.4 fL (80.0-98.0); NRBC Abs Auto 0.000 X10*3/uL (0.0-0.012); NRBC Pct Auto 0.0 /100WBC (0.0-0.2); Platelet Count 335 X10*3/uL (160-400); Red Blood Count 3.70 X10*6/uL (4.20-5.50); White Blood Count 11.6 X10*3/uL (4.8-10.8)
[2024-10-12 16:04] LABS: Alanine Aminotransferase 24 U/L (0-31); Albumin Level 3.7 g/dL (3.5-5.0); Alkaline Phosphatase 64 U/L (39-117); Anion Gap 11 (12-20); Aspartate Amino Transferase 33 U/L (5-31); Blood Urea Nitrogen 10 mg/dL (9-16); Calcium 8.6 mg/dL (8.4-10.2); Carbon Dioxide 24 mmol/L (22-29); Chloride 107 mmol/L (96-108); Creatinine Clr Calc Pharmacy 153.4; Estimated Glomerular Filt Rate > 60; Lipase 27 U/L (8-78); Magnesium 1.8 mg/dL (1.6-2.6); Potassium 3.7 mmol/L (3.3-5.1); Sodium 138 mmol/L (135-145); Total Protein 7.3 g/dL (6.5-8.0)
[2024-10-12 16:13] LABS: Troponin-I High Sensitivity < 2.7 ng/L (<3.5-17.0)
[2024-10-12 16:34] LABS: Resp Syncy Virus RNA Qual PCR NEGATIVE (Negative); SARS COV2 PCR INHOUSE NEGATIVE (Negative)
[2024-10-12 19:01] VITALS: BP 111/66; PULSE 83; RESP 16; TEMP 36.8; O2SAT 97
[2024-10-12 20:46] VITALS: BP 100/61; PULSE 82; RESP 15; TEMP 36.2; O2SAT 100
== END 2024-10-12 21:03 | disposition left against medical advice (07) ==
PROVIDERS: Physician Assistant Medical; Emergency Provider Emergency Medicine; PCP Internal Medicine
DX: R10.9 Unspecified abdominal pain (principal); R07.9 Chest pain, unspecified
CPT/HCPCS: 36415; 80053; 83690; 83735; 84484; 84702; 85025; 87637; 93005; 99283

== ENCOUNTER → 2024-10-12 15:12 | Outpatient (BNV) | payer MEDICAID, SELFPAY | PROVIDERS: Emergency Provider Emergency Medicine; PCP Internal Medicine; Visit Provider Internal Medicine | DX: R94.31 Abnormal electrocardiogram [ECG] [EKG] (principal); R07.9 Chest pain, unspecified | CPT/HCPCS: 93010 ==

== ENCOUNTER 2024-11-05 08:43 | Outpatient (AMB) | payer MEDICAID, SELFPAY ==
--- NOTE | 2024-11-05 08:50 | A.OFFVIS_ITS ---
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 Chow. She reports 100% pain relief which temporarily alleviated the pain, although it resulted in leg weakness and numbness immediately post-procedure. The patient reports that the nerve block provided relief for approximately eight hours, with no pain but a sensation of heaviness in the leg. Patient reports better mobility, better tolerance to climb stairs and perform activities during 8 hours after injection. Patient is interested to proceed with Sprint PNS trial as next steps. The patient received a cortisone injection earlier this year, which provided relief for about two months. The patient acknowledges being overweight and has expressed interest in weight management to potentially alleviate her leg, knee and back pain. Past Procedures: 09/25/24: Left diagnostic saphenous nerve block-100% for 8 hours PRIOR: The patient is a 33-year-old female presenting with the evaluation of chronic left knee pain due to a fall on ice resulting in a Workers' compensation injury. The incident occurred on March 24 of the previous year, leading to persistent pain and associated leg numbness. Lumbar MRI findings include mild to moderate levoscoliosis and a small left paramedian/foraminal disc protrusion with annular tear at L5-S1 causing left neural foraminal stenosis. Left knee MRI findings are compatible with strain versus low-grade partial tear of the semimembranosus. A cortisone injection throught [facility] provided temporary relief, and physical therapy was restarted with minimal improvements so far. The pain, exacerbated by cold weather and stair activity, is partially m anaged with ibuprofen and Lidocaine patches while continuous physical therapy and modified work duties continues. - Onset and Timing: Pain commenced post-fall in March,. - Quality and Character: Pain described as constant, throbbing, pounding, sharp, stabbing, burning, and tingling. - Pain is rated 7-8/10 during mornings, and 2-3/10 during afternoon when taken medications - Primary Location: Left knee, with some associated numbness in left thigh and leg. - Exacerbating/Relieving Factors: Worsens with cold weather, stairs, and randomly more than usual times; relieved somewhat by ibuprofen, Lidocaine patches, and warmth. - Interference: Interferes with daily activities, particularly in the morning, when ascending stairs, and if exposed to cold environments. - Affect: Pain adversely affects daily activities and psychological well-being due to constant management and interference with routine tasks. - Analgesia: Ibuprofen 800 mg three times daily and Lidocaine patches are used f or pain management. - Adverse Effects: None reported from medications. - Activities of Daily Living: Significant impact observed; activities involving stairs and cold environments are challenging. - Aberrant Drug Related Behaviors: None reported; pain managed strictly as prescribed. 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 Alert and oriented. Mood and affect appropriate. Follows and participates in conversation appropriately. Respiratory effort is unlabored. No cough. Able to transition from sit to stand unassisted. Ambulates with bilaterally normal heel strike and toe off. Extrem General: Yes capillary refill normal, Yes no clubbing, cyanosis or edema and Yes no calf tenderness Left lower extremity: knee (Limited ROM due to pain.) Details: normal to inspection and tenderness Location: of the lateral joint line; no swelling, no ecchymosis, no crepitus, no deformity and no unusual warmth Results Reviewed Results Reviewed: MRI LEFT KNEE WITHOUT CONTRAST 05/28/24 HISTORY: DERANGEMENT, CONTUSION COMPARISON: Correlation is made with plain films of the left knee dated 03/23/2024. TECHNIQUE: Coronal T1 and fat-suppressed proton density, sagittal proton density and fat-suppressed proton density, and axial fat suppressed T2 weighted MR images of the left knee were obtained. FINDINGS: Bone marrow: Bone marrow signal intensity is normal. Joint effusion: There is no significant joint effusion. Cassidy's cyst: There is no Cassidy's cyst. Articular cartilage: Intact Muscles/soft tissues: There is faint increased signal intensity at the musculotendinous junction of the semimembranosus muscle and surrounding the tendon, compatible with muscle strain versus low-grade partial tear. The popliteus and gastrocnemius tendons are intact. Anterior cruciate ligament: Intact Posterior cruciate ligament: Intact Medial collateral ligament: Intact Lateral collateral ligament: Intact Medial meniscus: Intact Lateral meniscus: Intact Quadriceps tendon: Intact Patellar tendon: Intact Patellar retinacula: Intact IMPRESSION: Findings compatible with strain versus low-grade partial tear of the semimembranosus. Otherwise unremarkable MRI of the left knee. MR LUMBAR SPINE WITHOUT IV CONTRAST 07/09/24 History: PAIN LT KNEE/LEG NUMBNESS LT THIGH Technique: Sagittal T1, T2 and STIR, and axial T1 and T2 weighted images of the lumbar spine were obtained per departmental protocol. Comparison: Correlation is made with plain films of the lumbar spine dated 06/04/2024. Findings: There is mild to moderate levoscoliosis. The vertebral bodies maintain normal height and marrow signal intensity. The intervertebral discs maintain normal height and hydration. At T12-L1,there is no evidence of disc herniation, central spinal stenosis, or neural foraminal narrowing. At L1-2, there is a minimal disc bulge without central spinal stenosis or neural foraminal narrowing. At L2-3, there is no evidence of disc herniation, central spinal stenosis, or neural foraminal narrowing. At L3-4, there is no evidence of disc herniation, central spinal stenosis, or neural foraminal narrowing. At L4-5, there is no evidence of disc herniation, central spinal stenosis, or neural foraminal narrowing. At L5-S1, there is a small left paramedian/foraminal disc protrusion with annular tear. This causes left neural foraminal stenosis. There is no central spinal or right neural foraminal stenosis. The conus terminates at the T12-L1 level and demonstrates normal signal intensity. The visualized paraspinal soft tissues are unremarkable. Impression: 1. Mild to moderate levoscoliosis. 2. Small left paramedian/foraminal disc protrusion with annular tear at L5-S1 causing left neural foraminal stenosis. Assessment & Plan Assessment & Plan (1) Chronic pain of left knee: Code(s): M25.562 - Pain in left knee; G89.29 - Other chronic pain Category: Medical (2) Patellofemoral syndrome of left knee: Code(s): M22.2X2 - Patellofemoral disorders, left knee Category: Medical Plan The patient will proceed with left saphenous nerve Sprint PNS trial as the next step in managing her chronic left knee pain and associated nerve pain given po sitive results with recent diagnostic left SNB. Expectations, risks and benefits were reviewed. Patient is aware she will be contacted to schedule this procedure. Recommend physical therapy focusing on quadricep strengthening and low-impact exercises such as swimming. Monitor the healing process of the potential tendon tear, which may take up to two years. The patient is advised to seek a referral for weight management through her insurance to address her overweight status, which may help alleviate her back, knee and leg pain. All questions and concerns have been answered and patient agreed with the plan. Follow up after Sprint placement and sooner as needed. Patient was informed and verbally consented to the use of an ambient scribe for clinic note documentation during this visit. Coding Level of Care Code Est Pt Level 3 (44970) Complex EM visit Add On G2211 Diagnoses Chronic pain of left knee M25.562; G89.29 Patellofemoral syndrome of left knee M22.2X2
[2024-11-05 08:53] VITALS: BP 122/70; PULSE 77; O2SAT 100; BMI 34.9
--- OUTSIDE RECORDS SUMMARY | 2024-11-05 09:01 | XMS_ITS | Clinical Summary ---
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 Feeder Name Role Phone Pcp, No Primary Care Provider Unavailabl e Immunizations Immunization Administration Dates Next Due Tdap 04/15/2014 Varicella 01/26/1997 Social History Tobacco Use Types Packs/Day Years Used Date Smoking Tobacco: Never Assessed Comments Unknown Sex and Gender Information Value Date Recorded Sex Assigned at Not on file Legal Sex Female 10:00 AM EDT Gender Identity Not on file Sexual Orientation Not on file Plan of Treatment Health Maintenance Due Date Last Done Comments Hepatitis C Virus Screening 1991 HIV Screening 12/19/2004 Hepatitis B Vaccines (1 of 3 - 19+ 3-dose series) 12/19/2010 Pap Smear (Ages 21-65) 12/19/2012 COVID-19 Vaccine ( - 2023-2 5 season) 2023 DTaP/Tdap/Td Vaccines (2 - T d or Tdap) 04/15/2024 04/15/2014 Influenza Vaccine 10/30/2024 02/12/2014, 12/23/2008, 03/07/2006 HPV Vaccines Aged Out No longer eligi ble based on patient's age to complete this topic Pneumococcal Vaccine: Pediatric (0-5 Years) and At-Risk Patients (6 to 49 Years) Aged Out No longer eligible b ased on patient's age to complete this topic Care Teams Glass Vial Bending Conveyor Feeder Relationship Specialty Start Date End Date Pcp, [address] [place] [address] PCP - General 08/28/22
--- OUTSIDE RECORDS SUMMARY | 2024-11-05 09:01 | XMS_ITS ---
Author Name [facility] Organization Unknown Encounters Encounter Type Encounter Reason Primary Diagnosis Location Date Ambulatory [facility] 08/31/2022 Care Team Organization Name Specialty Phone Email Start Date End Da te [facility] NO PCP Primary Care 08/31/2022 08/31/2022 [facility] PCP,No Primary Care 08/31/2022 [facility] Primary Care 02/06/2022 11/18/19 24
--- OUTSIDE RECORDS SUMMARY | 2024-11-05 09:01 | XMS_ITS | Clinical Summary ---
Author Organization [address] [facility] Address [address] [place] [address] Phone Care Team Providers Care Casting Chipper Name Role Phone Negro Fraire MD Primary Care Provider [phone] Allergies No known active allergies Medications levothyroxine [...] Encounters Date Type Department Care Team Description 10/19/2024 Telephone Internal Medicine - [facility] [address], [place] [phone] Negro Fraire MD Cough 08/18/2024 4:00 PM EDT Office Visit Bariatric Surgery - [address] [place] [address] Karla Plasencia PA Class 2 obesity due to excess calories with body mass index (BMI) of 38.0 to 38.9 in adult, unspecified whether serious comorbidity present (Primary Dx) 08/10/2024 7:35 AM EDT - 08/10/2024 11:54 AM EDT Emergency [facility] Emergency [address] [place] [address] Negro Turner MD Epigastric pain (Primary Dx) Discharge Disposition: Home or Self Care from Last 3 Months Immunizations Name Administration Dates Next Due DTaP (Infanrix) 6wks to less than 7yo ,12/11/1993,1992,1992,03/01/1992 DMoF-[id number]-JIQ (Pentacel) 2mo to less than 5yo 12/21/1995,05/02/1993,06/21/1992,1991 HPV, Quadrivalent 08/27/2008,11/27/2007,03/27/20 06 Hepatitis B (Odvmsoe-N-Uhnzt , Recombivax HB-Adult) 19yo and older 04/14/2018 [...] BIOPSY W/ LOOP ELECTRODE EXCISION 01/2017 PROCEDURE: CO CONIZATION CERVIX W/WO D&C RPR ELTRD EXC; [...] care for your loved ones. For example, children's tutor nursery or elderly care for an older adult? [...] PM EDT Office Visit Bariatric Surgery - [place] [facility] [address] [place] [phone] Karla Plasencia PA [address] [facility] [place] [address] [place] [phone] 06/29/2025 4:00 PM EDT Office Visit Internal Medicine - [address] [phone] Negro Fraire MD [address] [place] [phone] Health Maintenance Due Date Last Done Comments Cervical Cancer Screening: Pap Smear 12/19/2012 COVID-19 Vaccine ( season) 2023 12/27/2020, 11/08/2020 Influenza Vaccine (#1) 2024 , 11/27/2021, 02/11/2018, Additional history exists Social Influencers of Health Screening 06/18/2025 06/18/2024 [...] on patient's age to complete this topic Depression Screening Completed 06/18/2024, 10/02/19 HIV Screening Completed 06/22/2024 Hepatitis C Screening [...] 5 Years) and At-Risk Patients (6 to 49 Years) Aged Out No longer eligible based [...] ECG 12-LEAD STAT 08/10/2024 2:42 AM EDT HEPATITIS PANEL, ACUTE WITH REFLEX TO CONFIRMATION [...] Signed Date: 08/10/2024 10:37 ET Workstation ID: [id number] Transcribed By: Self Edit Transcribed Date: 08/10/2024 [...] Signed Date: 08/10/2024 10:37 ET Workstation ID: [id number] Transcribed By: Self Edit Transcribed Date: 08/10/2024 [...] 03/22/25). 2. No adnexal masses. Telerad REVA ([id number]) -------- FINAL REPORT -------- Dictated By: Sasha Shaikh Dictated Date: 08/10/2024 10:49 ET Assigned Physician: Sasha Shaikh Reviewed and Electronically Signed By: Sasha Shaikh Signed Date: 08/10/2024 10:53 ET Workstation ID: [id number] Transcribed By: Self Edit Transcribed Date: 08/10/2024 [...] 03/22/25). 2. No adnexal masses. Telerad REVA ([id number]) -------- FINAL REPORT -------- Dictated By: Sasha Shaikh Dictated Date: 08/10/2024 10:49 ET Assigned Physician: Sasha Shaikh Reviewed and Electronically Signed By: Sasha Shaikh Signed Date: 08/10/2024 10:53 ET Workstation ID: [id number] Transcribed By: Self Edit Transcribed Date: 08/10/2024 10:49 ET us Negro Turner MD IMG OB US PROCEDURES Final Resu lt * Troponin I high sensitivity (08/10/2024 4:22 AM EDT) Only the most recent of2 resultswithin the time period is included. High Sensitivity Troponin I <3 <=54 ng/L LAB CHEMISTRY METHOD 08/10/2024 6:18 AM EDT [facility] ([facility] Blood Venous blood specimen / Unknown Venipuncture / Unknown 08/10/2024 4:22 AM EDT 08/10/2024 5:51 AM EDT Narrative [facility] - 08/10/2024 6:18 AM EDT High levels of biotin in samples may falsely decrease hsTroponin values. Use caution when interpreting hsTroponin results in patients taking biotin who exhibit renal impairment (eGFR <60) or in patients taking more than 20 mg/day of biotin. us Negro Turner MD LAB BLOOD ORDERABLES Final Resu lt [facility]) [facility] [address] [place] [address], [place] [phone] * (ABNORMAL) POC , urine manually resulted (08/10/2024 4:21 AM EDT) Pathologist [facility] HCG, Ur POC Positive(A ) Negative POC [...] GEMUSE QTc 423 ms GEMUSE P Wave Biddle 39 degrees GEMUSE R Biddle 25 degrees GEMUSE T Biddle 14 degrees GEMUSE ECG Interpretation Normal sinus rhythm Normal ECG When compared with ECG of 10-AUG-2024 02:42, (unconfirmed) No significant change was found Confirmed by Bin BAUER JOHN ([id number]) on 08/10/2024 7:30:22 PM GEMUSE 08/10/2024 4:19 AM EDT 08/10/2024 7:30 PM EDT us Negro Turner MD ECG ORDERABLES Final Result GEMUSE * (ABNORMAL) CBC auto differential (08/10/2024 2:46 AM EDT) WBC 9.7 4.8 - 10.8 K/mcL LAB HEMETOLOGY METHOD 08/10/2024 3:23 AM EDT [facility] RBC 4.00 3.80 - 4.80 M/mcL LAB HEMETOLOGY METHOD 08/10/2024 3:23 AM EDT [facility] Hemoglobin 10.4(L) 11.5 - 16.0 g/dL LAB HEMETOLOGY METHOD 08/10/2024 3:23 AM [facility] Hematocrit 32.2(L) 35.0 - 47.0 % LAB HEMETOLOGY METHOD 08/10/2024 3:23 AM [facility] MCV 79.7 79.0 - 98.0 FL LAB HEMETOLOGY METHOD 08/10/2024 3:[facility] MCH 25.7(L) 27.0 - 32.0 pcg LAB HEMETOLOGY METHOD 08/10/2024 3:23 AM [facility] MCHC 32.3 32.0 - 37.0 g/dL LAB HEMETOLOGY METHOD 08/10/2024 3:23 AM [facility] RDW 16.1(H) 11.0 - 15.0 % LAB HEMETOLOGY METHOD 08/10/2024 3:[facility] Platelets 299 130 - 400 K/mcL LAB HEMETOLOGY METHOD 08/10/2024 3:23 AM EDT [facility] MPV 9.4 7.0 - 11.0 FL LAB HEMETOLOGY METHOD 08/10/2024 3:[facility] NRBC 0.0 <1.0 % LAB HEMETOLOGY METHOD 08/10/2024 3:23 AM [facility] NRBC Absolute 0.00 <0.10 K/mcL LAB HEMETOLOGY METHOD 08/10/2024 3:23 AM [facility] Neutrophils Relative 77.6 % LAB HEMETOLOGY METHOD 08/10/2024 3:23 AM [facility] Lymphocytes Relative 11.9 % LAB HEMETOLOGY METHOD 08/10/2024 3:23 AM [facility] Monocytes Relative 7.7 % LAB HEMETOLOGY METHOD 08/10/2024 3:23 AM [facility] Eosinophils Relative 2.0 % LAB HEMETOLOGY METHOD 08/10/2024 3:23 AM [facility] Basophils Relative 0.4 % LAB HEMETOLOGY METHOD 08/10/2024 3:23 AM [facility] Immature Granulocytes Relative 0.4 % LAB HEMETOLOGY METHOD 08/10/2024 3:23 AM [facility] Neutrophils Absolute 7.53(H) 1.50 - 7.00 K/mcL LAB HEMETOLOGY METHOD 08/10/2024 3:23 AM [facility] Lymphocytes Absolute 1.15 1.00 - 5.00 K/mcL LAB HEMETOLOGY METHOD 08/10/2024 3:23 AM [facility] Monocytes Absolute 0.75 0.20 - 1.00 K/mcL LAB HEMETOLOGY METHOD 08/10/2024 3:23 AM [facility] Eosinophils Absolute 0.19 0.00 - 0.50 K/mcL LAB HEMETOLOGY METHOD 08/10/2024 3:23 AM [facility] Basophils Absolute 0.04 0.00 - 0.20 K/mcL LAB HEMETOLOGY METHOD 08/10/2024 3:23 AM [facility] Immature Granulocytes Absolute 0.04(H) 0.00 - 0.03 K/mcL LAB HEMETOLOGY METHOD 08/10/2024 3:23 AM EDT [facility] Blood Venous blood specimen / Unknown Venipuncture / Unknown 08/10/2024 2:46 AM EDT 08/10/2024 3:17 AM EDT us Negro Turner MD LAB BLOOD ORDERABLES Final Resu lt Performing Organization Address [facility] Co de Phone Number [facility] [address] [place] [address], [place] [phone] * B-type natriuretic peptide (08/10/2024 2:46 AM EDT) BNP 22 <=100 pcg/mL LAB CHEMISTRY METHOD 08/10/2024 3:48 AM EDT [facility] Blood Venous blood specimen / Unknown Venipuncture / Unknown 08/10/2024 2:46 AM EDT 08/10/2024 3:17 AM EDT us Negro Turner MD LAB BLOOD ORDERABLES Final Resu lt Performing Organization Address [facility] de Phone Number [facility] [address] [place] [address], [place] [phone] * (ABNORMAL) Magnesium (08/10/2024 2:46 AM EDT) Magnesium 1.7(L) 1.9 - 2.6 mg/dL LAB CHEMISTRY METHOD 08/10/2024 3:42 AM EDT [facility] Blood Venous blood specimen / Unknown Venipuncture / Unknown 08/10/2024 2:46 AM EDT 08/10/2024 3:17 AM EDT us Negro Turner MD LAB BLOOD ORDERABLES Final Resu lt Performing Organization Address [facility]/ZIP Co de Phone Number [facility] [address] [place] [address], [place] [phone] * Lipase (08/10/2024 2:46 AM EDT) [facility] Lipase 38 13 - 75 unit/L LAB CHEMISTRY METHOD 08/10/2024 3:42 AM EDT [facility] Blood Venous blood specimen / Unknown Venipuncture / Unknown 08/10/2024 2:46 AM EDT 08/10/2024 3:17 AM EDT us Negro Turner MD LAB BLOOD ORDERABLES Final Resu lt [facility] [address] [place] [address], [place] [phone] * (ABNORMAL) Comprehensive metabolic panel (08/10/2024 2:46 AM EDT) [facility] Sodium 136 133 - 145 mmol/L LAB CHEMISTRY METHOD 08/10/2024 3:42 AM [facility] Potassium 3.6 3.5 - 5.5 mmol/L LAB CHEMISTRY METHOD 08/10/2024 3:42 AM [facility] Chloride 106 96 - 110 mmol/L LAB CHEMISTRY METHOD 08/10/2024 3:42 AM [facility] CO2 23 21 - 32 mmol/L LAB CHEMISTRY METHOD 08/10/2024 3:42 AM [facility] Anion Gap 7 3 - 11 LAB CHEMISTRY METHOD 08/10/2024 3:42 AM [facility] Glucose 91 70 - 100 mg/dL LAB CHEMISTRY METHOD 08/10/2024 3:42 AM [facility] BUN 7 5 - 25 mg/dL LAB CHEMISTRY METHOD 08/10/2024 3:42 AM [facility] Creatinine 0.57 0.50 - 1.10 mg/dL LAB CHEMISTRY METHOD 08/10/2024 3:42 AM [facility] eGFR 124 >=60 mL/min/1. 73m2 LAB CHEMISTRY METHOD 08/10/2024 3:42 AM [facility] Comment:Calculation based on the Chronic Kidney Disease Epidemiology Collaboration (CKD-EPI) equation refit without adjustment for race. BUN/Creatinine Ratio 12.3 LAB CHEMISTRY METHOD 08/10/2024 3:42 AM [facility] Calcium 8.9 8.5 - 10.5 mg/dL LAB CHEMISTRY METHOD 08/10/2024 3:42 AM [facility] AST (SGOT) 10 10 - 42 unit/L LAB CHEMISTRY METHOD 08/10/2024 3:42 AM [facility] ALT (SGPT) 18 10 - 60 unit/L LAB CHEMISTRY METHOD 08/10/2024 3:42 AM [facility] Alkaline Phosphatase 57 42 - 121 unit/L LAB CHEMISTRY METHOD 08/10/2024 3:42 AM [facility] Total Protein 6.9 6.0 - 8.0 g/dL LAB CHEMISTRY METHOD 08/10/2024 3:42 AM [facility] Albumin 3.0(L) 3.2 - 5.0 g/dL LAB CHEMISTRY METHOD 08/10/2024 3:42 AM [facility] Total Bilirubin 0.2 0.0 - 1.4 mg/dL LAB CHEMISTRY METHOD 08/10/2024 3:42 AM [facility] Blood Venous blood specimen / Unknown Venipuncture / Unknown 08/10/2024 2:46 AM EDT 08/10/2024 3:17 AM EDT us Negro Turner MD LAB BLOOD ORDERABLES Final Resu lt [facility] [address] [place] [address], [place] [phone] * HIV 1,2 antibody, p24 antigen with reflex to differentiation (06/22/2024 4:57 PM EDT) [facility] HIV Combo AB/AG Negative Negative LAB CHEMISTRY METHOD 06/22/2024 8:43 PM EDT [facility] Blood Venous blood specimen / Unknown Venipuncture / Unknown 06/22/2024 4:57 PM EDT 06/22/2024 5:01 PM EDT [facility] - 06/22/2024 8:43 PM EDT This [...] MD LAB BLOOD ORDERABLES Final Res ult [facility] [address] [place] [address], [place] [phone] * Lipid panel with reflex to direct LDL (06/22/2024 4:57 PM EDT) [facility] Cholesterol 163 0 - 200 mg/dL LAB CHEMISTRY METHOD 06/22/2024 7:02 PM EDT [facility] Triglycerides 97 0 - 150 mg/dL LAB CHEMISTRY METHOD 06/22/2024 7:02 PM EDT [facility] HDL 55 >=40 mg/dL LAB CHEMISTRY METHOD 06/22/2024 7:02 PM EDT [facility] LDL Calculated 89 0 - 100 mg/dL LAB CHEMISTRY METHOD 06/22/2024 7:02 PM EDT [facility] VLDL Cholesterol Sukhdev 19.4 mg/dL LAB CHEMISTRY METHOD 06/22/2024 7:02 PM EDT [facility] Non HDL Chol. (LDL+VLDL) 108 <145 mg/dL LAB CHEMISTRY METHOD 06/22/2024 7:02 PM EDT [facility] Chol/HDL Ratio 3.0 0.0 - 4.4 LAB CHEMISTRY METHOD 06/22/2024 7:02 PM EDT [facility] Blood Venous blood specimen / Unknown Venipuncture / Unknown 06/22/2024 4:57 PM EDT 06/22/2024 5:01 PM EDT Negro Fraire MD LAB BLOOD ORDERABLES Final Res ult [facility] [address] [place] [address], [place] [phone] * Hepatitis panel, acute with reflex to confirmation (06/22/2024 4:57 PM EDT) Hepatitis B Surface Ag Negative Negative LAB CHEMISTRY METHOD 06/22/2024 10:00 PM EDT [facility] Hepatitis A Antibody IgM Negative Negative LAB CHEMISTRY METHOD 06/22/2024 10:00 PM EDT [facility] Hep B Core IgM Negative Negative LAB CHEMISTRY METHOD 06/22/2024 10:00 PM EDT [facility] Hepatitis C Antibody Negative Negative LAB CHEMISTRY METHOD 06/22/2024 10:00 PM EDT [facility] Blood Venous blood specimen / Unknown Venipuncture / Unknown 06/22/2024 4:57 PM EDT 06/22/2024 5:01 PM EDT us Negro Fraire MD LAB BLOOD ORDERABLES Final Res ult [facility] [address] [place] [address], [place] [phone] * Hm Depression Screening (10/02/2023) Pathologist [facility] Depression Screening abstracted Historical Provider HEALTH MAINTENANCE Final Result from Last 3 Months or Most Recently Relevant to Health Maintenance Insurance [facility] Care Teams Casting Chipper Relationship Specialty Start Date End Date Negro Fraire MD [address] [place] [phone] PCP - General Internal Medicine 01/24/24
== END 2024-11-05 09:08 | disposition home or self-care (01) ==
PROVIDERS: PCP Internal Medicine; Visit Provider Nurse Practitioner Family
DX: M25.562 Pain in left knee (principal); G89.29 Other chronic pain; M22.2X2 Patellofemoral disorders, left knee
CPT/HCPCS: 99213

== ENCOUNTER → 2024-11-05 08:43 | Outpatient (BNVA) | payer OTHER, MEDICAID, SELFPAY | PROVIDERS: PCP Internal Medicine; Visit Provider Nurse Practitioner Family | DX: M25.562 Pain in left knee (principal); M22.2X2 Patellofemoral disorders, left knee; G89.29 Other chronic pain | CPT/HCPCS: 99212 ==

== ENCOUNTER → 2024-11-27 10:08 | Outpatient (BNVA) | payer OTHER, SELFPAY | PROVIDERS: PCP Internal Medicine; Visit Provider Internal Medicine | DX: Z13.89 Encounter for screening for other disorder (principal) | CPT/HCPCS: 99213 ==

== ENCOUNTER → 2025-02-05 09:23 | Outpatient (BNVA) | payer OTHER, SELFPAY | PROVIDERS: PCP Internal Medicine; Visit Provider Internal Medicine | DX: Z13.89 Encounter for screening for other disorder (principal) | CPT/HCPCS: 99213 ==